=== PATIENT | female | born 1980 | race Caucasian/White ===

== ENCOUNTER 2017-03-11 10:09 | Emergency (ER) | payer OTHER ==
[2017-03-11] MEDS ORDERED: SODIUM CHLORIDE 0.9% 1,000 ML IV ONE (10:55)
[2017-03-11] MEDS ORDERED: MORPHINE SULFATE 10 MG/ML SYRINGE IVP STA (10:55)
[2017-03-11] MEDS ORDERED: ONDANSETRON 4 MG/2 ML VIAL IVP STA ×2 (10:55→11:48)
[2017-03-11 10:56] LABS: Basophils % (A) 0 %; CH 32.8; CHCM 34.6; Eosinophils # (A) 0.3 k/uL (0-0.7); Eosinophils % (A) 4 %; HCT 42.8 % (34.0-46.0); HDW 2.58; HGB 14.7 gm/dL (11.4-16.0); Luc # (Auto) 0.12; Luc % (Auto) 2; Lymphocytes # (A) 1.4 k/uL (1.0-4.8); Lymphocytes % (A) 18 %; MCH 32.7 pg (25.0-35.0); MCHC 34.3 g/dL (31.0-37.0); MCV 95.5 fL (80.0-100.0); Mean Platelet Volume 7.6; Monocytes # (A) 0.4 k/uL (0-1.0); Monocytes % (A) 5 %; Neutrophils # (A) 5.6 k/uL (1.3-7.7); Neutrophils % (A) 72 %; RBC 4.48 m/uL (3.80-5.40); WBC 7.7 k/uL (3.8-10.6); WBC (Perox) 8.01
[2017-03-11 11:04] LABS: Appearance,Urine Cloudy (Clear); Bacteria,Urine Rare /hpf; Bilirubin,Urine Negative (Negative); Glucose,Urine (UA) Negative (Negative); Ketones,Urine Negative (Negative); Leukocyte Esterase,Urine Trace (Negative); Mucus,Urine Occasional /hpf; Nitrite,Urine Negative (Negative); PH, Urine 5.5 (5.0-8.0); Particle Count 13658; Protein,Urine 1+ (Negative); RBC,Urine 48 /hpf (0-5); Specific Gravity,Urine 1.018 (1.001-1.035); Squamous Epithelial Cell,Urine 7 /hpf (0-4); UA Billing (MACRO vs. MICRO) MICRO; Urobilinogen,Urine <2.0 mg/dL (<2.0); WBC,Urine 3 /hpf (0-5)
--- NOTE | 2017-03-11 11:05 | ED ---
Abdominal Pain HPI - General Chief Complaint: Abdominal Pain Stated Complaint: abdominal pain Time Seen by Provider: 03/11/17 10:33 Source: patient, RN notes reviewed Mode of arrival: ambulatory Limitations: no limitations - History of Present Illness Initial Comments: Patient is a 36-year-old female presents to the emergency room for evaluation of abdominal pain. Patient states she ate 2 baked potatoes last night and vomited about 5-10 minutes afterwards. Patient states she vomited so hard she began having lower abdominal pain and headache. Patient states headache has subsided but she's been having increasing abdominal pain. Patient states she is currently having 8 out of 10 pain in her left lower quadrant and left upper quadrant. Patient states she has a history of cholecystectomy. Patient states she's been nauseous today but denies any vomiting since last night. Patient denies fevers or chills. Patient denies chest pain or shortness of breath. Patient denies headache or dizziness. Patient denies taking anything for pain. Patient denies blood in stools. Patient denies dark tarry stools. - Related Data Home Medications Medication Instructions Recorded Confirmed Acyclovir [Zovirax] 800 mg PO HS 09/02/14 03/11/17 Ranitidine HCl [Zantac] 300 mg PO BID 09/02/14 03/11/17 lamoTRIgine [LaMICtal] 150 mg PO HS 09/02/14 03/11/17 Citalopram Hydrobromide [CeleXA] 20 mg PO HS 12/07/14 03/11/17 HYDROcodone/APAP 7.5-325MG [[place] 1 tab PO BID PRN 12/07/14 03/11/17 7.5-325] Ibuprofen [Motrin] 800 mg PO TID PRN 12/07/14 03/11/17 QUEtiapine [SEROquel] 200 mg PO HS 12/07/14 03/11/17 Metoprolol Tartrate [Lopressor] 25 mg PO HS 02/26/16 03/11/17 Verapamil HCl [Verapamil ER] 180 mg PO HS 02/26/16 03/11/17 Mirtazapine [Remeron] 45 mg PO HS 03/11/17 03/11/17 Pregabalin [Lyrica] 200 mg PO BID 03/11/17 03/11/17 Previous Rx's Medication Instructions Recorded Ondansetron Odt [Zofran Odt] 4 mg PO Q8HR PRN #12 tab 03/11/17 Allergies Allergy/AdvReac Type Severity Reaction Status Date / Time azithromycin Allergy Unknown Rash/Hives Verified 03/11/17 10:17 [From Zithromax Z-Jeremie] acetaminophen AdvReac TREMORS Verified 03/11/17 10:17 [From Tylenol-Codeine #3] codeine phosphate AdvReac TREMORS Verified 03/11/17 10:17 [From Tylenol-Codeine #3] prednisone AdvReac Swelling Verified 03/11/17 10:17 Review of Systems ROS Statement: Those systems with pertinent positive or pertinent negative responses have been documented in the HPI. ROS Other: All systems not noted in ROS Statement are negative. Past Medical History Past Medical History: Asthma, GERD/Reflux, Myocardial Infarction ([place]), Renal Disease Additional Past Medical History / Comment(s): kidney stones, DJD- back pain., sciatic nerve pain, depression, migraines, asthma and chronic bronchitis Last Myocardial Infarction Date:: 10/2013 History of Any Multi-Drug Resistant Organisms: None Reported Past Surgical History: Cholecystectomy, Tubal Ligation, Uterine Ablation Additional Past Surgical History / Comment(s): d & c nova sure, colposcopy Past Anesthesia/Blood Transfusion Reactions: No Reported Reaction Additional Past Anesthesia/Blood Transfusion Reaction / Comment(s): never recieved blood. Past Psychological History: ADD/ADHD, Anxiety, Bipolar, Depression Additional Psychological History / Comment(s): BORDERLINE PERSONALITY DISORDER, MAJOR DEPRESSION DISORDER. PT IS UNEMPLOYED. 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 Smoking Status: Current every day smoker Past Alcohol Use History: Rare Past Drug Use History: None Reported Additional Drug Use History / Comment(s): PT SMOKES MARIJUANA ONCE OR TWICE A MONTH. - Past Family History Father Family Medical History: Myocardial Infarction ([place]) Additional Family Medical History / Comment(s): FATHER HAD [place] AT AGE 42 YRS. FATHER OF PANCREATIC CANCER. HE WAS AN ALCOHOLIC Mother Family Medical History: Coronary Artery Disease (CAD), Diabetes Mellitus General Exam - General Exam Comments Initial Comments: Sitting in exam room, no acute distress. Limitations: no limitations General appearance: alert, in no apparent distress Head exam: Present: atraumatic, normocephalic, normal inspection Eye exam: Present: normal appearance ENT exam: Present: normal exam Neck exam: Present: normal inspection Respiratory exam: Present: normal lung sounds bilaterally. Absent: respiratory distress Cardiovascular Exam: Present: regular rate, normal rhythm, normal heart sounds GI/Abdominal exam: Present: soft, tenderness (Left lower quadrant), normal bowel sounds. Absent: distended, guarding, rebound, rigid Extremities exam: Present: normal inspection Back exam: Present: normal inspection Neurological exam: Present: alert, oriented X3, CN II-XII intact, normal gait Psychiatric exam: Present: normal affect, normal mood Skin exam: Present: warm, dry, intact, normal color. Absent: rash Course Vital Signs 03/11/17 03/11/17 03/11/17 10:15 12:18 13:56 Temperature 99.9 F H 97.9 F 98.3 F Pulse Rate 90 89 79 Respiratory 20 16 18 Rate Blood Pressure 145/79 125/60 144/73 O2 Sat by Pulse 98 97 95 Oximetry Medical Decision Making - Medical Decision Making Patient is a 36-year-old female presents emergency room for evaluation of abdominal pain. Labs showed no significant findings. Urinalysis significant for hematuria. Patient states that is chronic for her. Patient states she has a chronic right kidney stone. CT ordered to rule out appendicitis. CT showed no acute findings. Right proximal ureteral stone noted, which patient knows about. Patient's abdominal pain most likely related to muscle strain from vomiting. Advised patient to take ibuprofen as needed for pain and follow up with primary care provider if symptoms are not improving. Patient states she understands everything that was discussed with her. Return parameters discussed. Case discussed Dr. Malik. - Lab Data Result diagrams: 03/11/17 10:45 03/11/17 10:45 Lab Results 03/11/17 03/11/17 03/11/17 Range/Units 10:45 10:45 10:45 WBC 7.7 (3.8-10.6) k/uL RBC 4.48 (3.80-5.40) m/uL Hgb 14.7 (11.4-16.0) gm/dL Hct 42.8 (34.0-46.0) % MCV 95.5 (80.0-100.0) fL MCH 32.7 (25.0-35.0) pg MCHC 34.3 (31.0-37.0) g/dL RDW 14.0 (11.5-15.5) % Plt Count 194 (150-450) k/uL Neutrophils % 72 % Lymphocytes % 18 % Monocytes % 5 % Eosinophils % 4 % Basophils % 0 % Neutrophils # 5.6 (1.3-7.7) k/uL Lymphocytes # 1.4 (1.0-4.8) k/uL Monocytes # 0.4 (0-1.0) k/uL Eosinophils # 0.3 (0-0.7) k/uL Basophils # 0.0 (0-0.2) k/uL Sodium 141 (137-145) mmol/L Potassium 3.9 (3.5-5.1) mmol/L Chloride 107 (98-107) mmol/L Carbon Dioxide 25 (22-30) mmol/L Anion Gap 9 mmol/L BUN 10 (7-17) mg/dL Creatinine 0.77 (0.52-1.04) mg/dL Est GFR (MDRD) Af Amer >60 (>60 ml/min/1.73 sqM) Est GFR (MDRD) Non-Af >60 (>60 ml/min/1.73 sqM) Glucose 112 H (74-99) mg/dL Calcium 9.2 (8.4-10.2) mg/dL Total Bilirubin 0.5 (0.2-1.3) mg/dL AST 27 (14-36) U/L ALT 37 (9-52) U/L Alkaline Phosphatase 73 (38-126) U/L Total Protein 6.9 (6.3-8.2) g/dL Albumin 4.0 (3.5-5.0) g/dL Urine Color Urine Appearance (Clear) Urine pH (5.0-8.0) Ur Specific [place] (1.001-1.035) Urine Protein (Negative) Urine Glucose (UA) (Negative) Urine Ketones (Negative) Urine Blood (Negative) Urine Nitrite (Negative) Urine Bilirubin (Negative) Urine Urobilinogen (<2.0) mg/dL Ur Leukocyte Esterase (Negative) Urine RBC (0-5) /hpf Urine WBC (0-5) /hpf Ur Squamous Epith Cells (0-4) /hpf Urine Bacteria (None) /hpf Urine Mucus (None) /hpf Urine HCG, Qual Not Detected (Not Detectd) 03/11/17 Range/Units 10:45 WBC (3.8-10.6) k/uL RBC (3.80-5.40) m/uL Hgb (11.4-16.0) gm/dL Hct (34.0-46.0) % MCV (80.0-100.0) fL MCH (25.0-35.0) pg MCHC (31.0-37.0) g/dL RDW (11.5-15.5) % Plt Count (150-450) k/uL Neutrophils % % Lymphocytes % % Monocytes % % Eosinophils % % Basophils % % Neutrophils # (1.3-7.7) k/uL Lymphocytes # (1.0-4.8) k/uL Monocytes # (0-1.0) k/uL Eosinophils # (0-0.7) k/uL Basophils # (0-0.2) k/uL Sodium (137-145) mmol/L Potassium (3.5-5.1) mmol/L Chloride (98-107) mmol/L Carbon Dioxide (22-30) mmol/L Anion Gap mmol/L BUN (7-17) mg/dL Creatinine (0.52-1.04) mg/dL Est GFR (MDRD) Af Amer (>60 ml/min/1.73 sqM) Est GFR (MDRD) Non-Af (>60 ml/min/1.73 sqM) Glucose (74-99) mg/dL Calcium (8.4-10.2) mg/dL Total Bilirubin (0.2-1.3) mg/dL AST (14-36) U/L ALT (9-52) U/L Alkaline Phosphatase (38-126) U/L Total Protein (6.3-8.2) g/dL Albumin (3.5-5.0) g/dL Urine Color Yellow Urine Appearance Cloudy H (Clear) Urine pH 5.5 (5.0-8.0) Ur Specific [place] 1.018 (1.001-1.035) Urine Protein 1+ H (Negative) Urine Glucose (UA) Negative (Negative) Urine Ketones Negative (Negative) Urine Blood Large H (Negative) Urine Nitrite Negative (Negative) Urine Bilirubin Negative (Negative) Urine Urobilinogen <2.0 (<2.0) mg/dL Ur Leukocyte Esterase Trace H (Negative) Urine RBC 48 H (0-5) /hpf Urine WBC 3 (0-5) /hpf Ur Squamous Epith Cells 7 H (0-4) /hpf Urine Bacteria Rare H (None) /hpf Urine Mucus Occasional H (None) /hpf Urine HCG, Qual (Not Detectd) - Radiology Data Radiology results: report reviewed, image reviewed Disposition Clinical Impression: Ureteral stone, Abdominal pain Disposition: HOME SELF-CARE Condition: Good Instructions: Abdominal Pain (ED) Additional Instructions: Continue with at home pain medications as needed. Please follow up with primary care provider in 1-2 days. If any new symptom arises or symptoms worsen, return to ER as soon as possible. Prescriptions: Ondansetron Odt [Zofran Odt] 4 mg PO Q8HR PRN #12 tab PRN Reason: Nausea Referrals: Solange Cowan MD [Primary Care Provider] - 1-2 days Time of Disposition: 13:43
[2017-03-11 11:06] LABS: ALT 37 U/L (9-52); AST 27 U/L (14-36); Alkaline Phosphatase 73 U/L (38-126); Anion Gap 9 mmol/L; Blood Urea Nitrogen 10 mg/dL (7-17); Calcium 9.2 mg/dL (8.4-10.2); Carbon Dioxide 25 mmol/L (22-30); Chloride 107 mmol/L (98-107); Glucose 112 mg/dL (74-99); Non-African American GFR(MDRD) >60 (>60 ml/min/1.73 sqM); Potassium 3.9 mmol/L (3.5-5.1); Sodium 141 mmol/L (137-145); Total Bilirubin 0.5 mg/dL (0.2-1.3); Total Protein 6.9 g/dL (6.3-8.2)
--- NOTE | 2017-03-11 11:28 | XR ---
EXAMINATION TYPE: XR KUB DATE OF EXAM: 03/11/2017 11:23 AM COMPARISON: NONE HISTORY: 02/18/2016 TECHNIQUE: One view abdominal series FINDINGS: The osseous structures are intact. The bowel gas pattern is nonspecific. Lung bases are clear. Surg ical clips right upper quadrant. Postsurgical change in the pelvis. IMPRESSION: 1. Nonspecific abdomen.
[2017-03-11] MEDS ORDERED: HYDROmorphone 1 MG/ML 1 ML SYRINGE IVP STA (11:48)
[2017-03-11] MEDS ORDERED: RX INFO: IV CONTRAST WAS GIVEN 1 EACH MISC MISCELLANE PRN (11:48)
--- NOTE | 2017-03-11 13:25 | CT ---
EXAMINATION TYPE: CT abdomen pelvis w con DATE OF EXAM: 03/11/2017 1:07 PM REFERENCE: Previous study dated 02/26/2016 HISTORY: Pain HISTORY: Patient complains of nausea, vomiting, and LUQ pain. REFERENCE: NONE CT DLP: 3648.1 mGy Automated exposure control for dose reduction was used. TECHNIQUE: Helical acquisition through the abdomen and pelvis was obtained following the oral ingesti on of without Oral Contrast and following intravenous administration of 100 mL of Omnipaque 300. The data was reformatted in axial, coronal and sagittal projections. FINDINGS: Visualized portions of the lungs are clear. There is no pleural or pericardial fluid. The heart is not enlarged. Within the abdomen, the gallbladder is been removed. There is a prominent Job's lobe of the liver. The spleen is unremarkable. Both adrenal glands are normal. There is a 7 mm calculus in the proximal right ureter. There is no appreciable hydronephrosis. The le ft kidney is normal. The pancreas is unremarkable. There is no significant retroperitoneal, iliac or inguinal adenopathy. Uterus is unremarkable. There has been a previous tubal ligation. Both clips are seen on the left. Th ere is minimal follicular change in both ovaries. The bladder is unremarkable. There is no significant diverticular change and there is no radiographic evidence of diverticulitis. The appendix is not visualized. Small bowel loops are normal. There is no free fluid and no free air identified. There is disc space loss at L4-5. No bony destructive lesion is seen. IMPRESSION: 1. NONOBSTRUCTING, 7 MM CALCULUS IN THE PROXIMAL RIGHT URETER. 2. DEGENERATIVE CHANGE WITHIN THE SPINE.
[2017-03-11 13:57] VITALS: BP 144/73; PULSE 79; RESP 18; TEMP 98.3
== END 2017-03-11 13:57 | disposition home or self-care (01) ==
LOC: EC 10:09
DX: N20.2 Calculus of kidney with calculus of ureter (principal); R11.10 Vomiting, unspecified; K21.9 Gastro-esophageal reflux disease without esophagitis; I25.2 Old myocardial infarction; F31.9 Bipolar disorder, unspecified; F41.9 Anxiety disorder, unspecified; F17.200 Nicotine dependence, unspecified, uncomplicated; Z79.899 Other long term (current) drug therapy; Z88.1 Allergy status to other antibiotic agents; Z88.6 Allergy status to analgesic agent; Z88.8 Allergy status to other drugs, medicaments and biological substances; Z86.69 Personal history of other diseases of the nervous system and sense organs
CPT/HCPCS: 36415; 80053; 85025; 81001; 81025; 74000; 74177; 99284; 96374; 96375 ×2; 96376; 96361; J2270; J2405; J1170; Q9967

== ENCOUNTER 2017-03-25 10:29 | Observation (INO) | payer OTHER ==
[2017-03-25] MEDS ORDERED: ACETAMINOPHEN TAB 500 MG TAB PO STA (10:48)
[2017-03-25] MEDS ORDERED: ASPIRIN 81 MG CHEW PO STA (10:48)
[2017-03-25] MEDS ORDERED: SODIUM CHLORIDE 0.9% 1,000 ML IV STA (10:48)
[2017-03-25] MEDS ORDERED: NITROGLYCERIN SL TABS 0.4 MG TAB SUBLINGUAL STA ×3 (10:48)
--- NOTE | 2017-03-25 10:51 | ED ---
General Adult HPI - General Chief complaint: Chest Pain Stated complaint: Chest Pain Time Seen by Provider: 03/25/17 10:36 Source: patient, EMS, RN notes reviewed Mode of arrival: EMS Limitations: no limitations - Related Data Home Medications Medication Instructions Recorded Confirmed Acyclovir [Zovirax] 800 mg PO HS 09/02/14 03/11/17 Ranitidine HCl [Zantac] 300 mg PO BID 09/02/14 03/11/17 lamoTRIgine [LaMICtal] 150 mg PO HS 09/02/14 03/11/17 Citalopram Hydrobromide [CeleXA] 20 mg PO HS 12/07/14 03/11/17 HYDROcodone/APAP 7.5-325MG [[place] 1 tab PO BID PRN 12/07/14 03/11/17 7.5-325] Ibuprofen [Motrin] 800 mg PO TID PRN 12/07/14 03/11/17 QUEtiapine [SEROquel] 200 mg PO HS 12/07/14 03/11/17 Metoprolol Tartrate [Lopressor] 25 mg PO HS 02/26/16 03/11/17 Verapamil HCl [Verapamil ER] 180 mg PO HS 02/26/16 03/11/17 Mirtazapine [Remeron] 45 mg PO HS 03/11/17 03/11/17 Pregabalin [Lyrica] 200 mg PO BID 03/11/17 03/11/17 Previous Rx's Medication Instructions Recorded Ondansetron Odt [Zofran Odt] 4 mg PO Q8HR PRN #12 tab 03/11/17 Allergies Allergy/AdvReac Type Severity Reaction Status Date / Time azithromycin Allergy Unknown Rash/Hives Verified 03/11/17 10:17 [From Zithromax Z-Jeremie] acetaminophen AdvReac TREMORS Verified 03/11/17 10:17 [From Tylenol-Codeine #3] codeine phosphate AdvReac TREMORS Verified 03/11/17 10:17 [From Tylenol-Codeine #3] prednisone AdvReac Swelling Verified 03/11/17 10:17 Review of Systems ROS Statement: Those systems with pertinent positive or pertinent negative responses have been documented in the HPI. ROS Other: All systems not noted in ROS Statement are negative. Past Medical History Past Medical History: Asthma, GERD/Reflux, Myocardial Infarction ([place]), Renal Disease Additional Past Medical History / Comment(s): kidney stones, DJD- back pain., sciatic nerve pain, depression, migraines, asthma and chronic bronchitis Last Myocardial Infarction Date:: 10/2013 History of Any Multi-Drug Resistant Organisms: None Reported Past Surgical History: Cholecystectomy, Tubal Ligation, Uterine Ablation Additional Past Surgical History / Comment(s): d & c nova sure, colposcopy Past Anesthesia/Blood Transfusion Reactions: No Reported Reaction Additional Past Anesthesia/Blood Transfusion Reaction / Comment(s): never recieved blood. Past Psychological History: ADD/ADHD, Anxiety, Bipolar, Depression Additional Psychological History / Comment(s): BORDERLINE PERSONALITY DISORDER, MAJOR DEPRESSION DISORDER. PT IS UNEMPLOYED. 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 Smoking Status: Current every day smoker Past Alcohol Use History: Rare Past Drug Use History: None Reported Additional Drug Use History / Comment(s): PT SMOKES MARIJUANA ONCE OR TWICE A MONTH. - Past Family History Father Family Medical History: Myocardial Infarction ([place]) Additional Family Medical History / Comment(s): FATHER HAD [place] AT AGE 42 YRS. FATHER OF PANCREATIC CANCER. HE WAS AN ALCOHOLIC Mother Family Medical History: Coronary Artery Disease (CAD), Diabetes Mellitus General Exam Limitations: no limitations Course Vital Signs 03/25/17 03/25/17 10:30 10:42 Temperature 98.3 F Pulse Rate 77 Respiratory 22 20 Rate Blood Pressure 127/61 O2 Sat by Pulse 96 Oximetry Disposition Referrals: Solange Cowan MD [Primary Care Provider] - 1-2 days
[2017-03-25 10:56] VITALS: RESP 18
[2017-03-25 10:56] LABS: Basophils % (A) 1 %; CH 32.4; CHCM 34.5; Eosinophils # (A) 0.2 k/uL (0-0.7); Eosinophils % (A) 4 %; HCT 41.4 % (34.0-46.0); HDW 2.57; HGB 14.3 gm/dL (11.4-16.0); Luc % (Auto) 2; Lymphocytes # (A) 1.5 k/uL (1.0-4.8); Lymphocytes % (A) 27 %; MCH 32.5 pg (25.0-35.0); MCHC 34.5 g/dL (31.0-37.0); MCV 94.1 fL (80.0-100.0); Mean Platelet Volume 7.7; Monocytes # (A) 0.4 k/uL (0-1.0); Monocytes % (A) 6 %; Neutrophils # (A) 3.4 k/uL (1.3-7.7); Neutrophils % (A) 61 %; RDW 13.5 % (11.5-15.5); WBC 5.6 k/uL (3.8-10.6); WBC (Perox) 6.21
--- NOTE | 2017-03-25 10:58 | ED ---
General Adult HPI - General Chief complaint: Chest Pain Stated complaint: Chest Pain Time Seen by Provider: 03/25/17 10:36 Source: patient, EMS, RN notes reviewed Mode of arrival: EMS Limitations: no limitations - History of Present Illness Initial comments: Patient is a pleasant 36-year-old female presenting to the emergency department complaining of chest discomfort. Onset was around 30 or 40 minutes ago when he awoke her from sleep. Discomfort is sharp and radiates to the left arm. Symptoms are similar to previous angina. Patient may have some mild nausea and mild shortness of breath. No diaphoresis. Discomfort is currently rated as 8/ 10. - Related Data Home Medications Medication Instructions Recorded Confirmed Acyclovir [Zovirax] 800 mg PO HS 09/02/14 03/25/17 lamoTRIgine [LaMICtal] 150 mg PO HS 09/02/14 03/25/17 Citalopram Hydrobromide [CeleXA] 20 mg PO HS 12/07/14 03/25/17 HYDROcodone/APAP 7.5-325MG [[place] 1 tab PO BID PRN 12/07/14 03/25/17 7.5-325] Ibuprofen [Motrin] 800 mg PO TID PRN 12/07/14 03/25/17 QUEtiapine [SEROquel] 200 mg PO HS 12/07/14 03/25/17 Metoprolol Tartrate [Lopressor] 25 mg PO HS 02/26/16 03/25/17 Verapamil HCl [Verapamil ER] 180 mg PO HS 02/26/16 03/25/17 Mirtazapine [Remeron] 45 mg PO HS 03/11/17 03/25/17 Pregabalin [Lyrica] 200 mg PO BID 03/11/17 03/25/17 Omeprazole [PriLOSEC] 20 mg PO HS 03/25/17 03/25/17 Previous Rx's Medication Instructions Recorded Ondansetron Odt [Zofran Odt] 4 mg PO Q8HR PRN #12 tab 03/11/17 Allergies Allergy/AdvReac Type Severity Reaction Status Date / Time azithromycin Allergy Unknown Rash/Hives Verified 03/25/17 11:21 [From Zithromax Z-Jeremie] acetaminophen AdvReac TREMORS Verified 03/25/17 11:21 [From Tylenol-Codeine #3] codeine phosphate AdvReac TREMORS Verified 03/25/17 11:21 [From Tylenol-Codeine #3] prednisone AdvReac Swelling Verified 03/25/17 11:21 Review of Systems ROS Statement: Those systems with pertinent positive or pertinent negative responses have been documented in the HPI. ROS Other: All systems not noted in ROS Statement are negative. Constitutional: Denies: fever Eyes: Denies: eye pain ENT: Denies: ear pain Respiratory: Denies: cough Cardiovascular: Reports: chest pain Endocrine: Denies: fatigue Gastrointestinal: Reports: nausea. Denies: abdominal pain Genitourinary: Denies: dysuria Musculoskeletal: Denies: back pain Skin: Denies: rash Neurological: Denies: weakness Past Medical History Past Medical History: Asthma, GERD/Reflux, Myocardial Infarction ([place]), Renal Disease Additional Past Medical History / Comment(s): kidney stones, DJD- back pain., sciatic nerve pain, depression, migraines, asthma and chronic bronchitis Last Myocardial Infarction Date:: 10/2013 History of Any Multi-Drug Resistant Organisms: None Reported Past Surgical History: Cholecystectomy, Tubal Ligation, Uterine Ablation Additional Past Surgical History / Comment(s): d & c nova sure, colposcopy Past Anesthesia/Blood Transfusion Reactions: No Reported Reaction Additional Past Anesthesia/Blood Transfusion Reaction / Comment(s): never recieved blood. Past Psychological History: ADD/ADHD, Anxiety, Bipolar, Depression Additional Psychological History / Comment(s): BORDERLINE PERSONALITY DISORDER, MAJOR DEPRESSION DISORDER. PT IS UNEMPLOYED. 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 Smoking Status: Current every day smoker Past Alcohol Use History: Rare Past Drug Use History: None Reported Additional Drug Use History / Comment(s): PT SMOKES MARIJUANA ONCE OR TWICE A MONTH. - Past Family History Father Family Medical History: Myocardial Infarction ([place]) Additional Family Medical History / Comment(s): FATHER HAD [place] AT AGE 42 YRS. FATHER OF PANCREATIC CANCER. HE WAS AN ALCOHOLIC Mother Family Medical History: Coronary Artery Disease (CAD), Diabetes Mellitus General Exam Limitations: no limitations General appearance: alert, in no apparent distress Head exam: Present: atraumatic Eye exam: Present: normal appearance, PERRL ENT exam: Present: normal oropharynx Neck exam: Present: normal inspection Respiratory exam: Present: normal lung sounds bilaterally. Absent: chest wall tenderness Cardiovascular Exam: Present: regular rate, normal rhythm Expanded Peripheral pulses: 2+: Radial (R), Radial (L), Posterior Tibialis (R), Posterior Tibialis (L) GI/Abdominal exam: Present: soft. Absent: tenderness Extremities exam: Present: normal inspection Neurological exam: Present: alert Psychiatric exam: Present: normal affect, normal mood Skin exam: Present: normal color Course Vital Signs 03/25/17 03/25/17 03/25/17 10:30 10:42 10:55 Temperature 98.3 F Pulse Rate 77 71 Respiratory 22 20 18 Rate Blood Pressure 127/61 114/58 O2 Sat by Pulse 96 96 Oximetry 03/25/17 03/25/17 11:01 11:54 Temperature Pulse Rate 79 73 Respiratory 18 18 Rate Blood Pressure 109/56 111/55 O2 Sat by Pulse 95 97 Oximetry EKG Findings - EKG Comments: EKG Findings:: Normal sinus rhythm 68. ME 160. QRS 84. QT 4:30. QTC 457. Normal axis. Normal QRS. Normal ST-T. Medical Decision Making - Medical Decision Making Patient reevaluated and resting comfortably in bed. Patient updated on results and plan. Case was discussed in detail with Dr. Hankins who will admit for Dr. Cho. Patient has some improvement of symptoms with nitroglycerin however still has moderate discomfort. Admission orders written. Cardiology consult placed. Patient will be started on IV heparin. - Lab Data Result diagrams: 03/25/17 10:41 03/25/17 10:41 Lab Results 03/25/17 03/25/17 03/25/17 Range/Units 10:41 10:41 10:41 WBC 5.6 (3.8-10.6) k/uL RBC 4.40 (3.80-5.40) m/uL Hgb 14.3 (11.4-16.0) gm/dL Hct 41.4 (34.0-46.0) % MCV 94.1 (80.0-100.0) fL MCH 32.5 (25.0-35.0) pg MCHC 34.5 (31.0-37.0) g/dL RDW 13.5 (11.5-15.5) % Plt Count 214 (150-450) k/uL Neutrophils % 61 % Lymphocytes % 27 % Monocytes % 6 % Eosinophils % 4 % Basophils % 1 % Neutrophils # 3.4 (1.3-7.7) k/uL Lymphocytes # 1.5 (1.0-4.8) k/uL Monocytes # 0.4 (0-1.0) k/uL Eosinophils # 0.2 (0-0.7) k/uL Basophils # 0.0 (0-0.2) k/uL PT (9.0-12.0) sec INR (<1.1) APTT (22.0-30.0) sec D-Dimer (<0.60) mg/L FEU Sodium 139 (137-145) mmol/L Potassium 3.8 (3.5-5.1) mmol/L Chloride 110 H (98-107) mmol/L Carbon Dioxide 23 (22-30) mmol/L Anion Gap 6 mmol/L BUN 18 H (7-17) mg/dL Creatinine 0.73 (0.52-1.04) mg/dL Est GFR (MDRD) Af Amer >60 (>60 ml/min/1.73 sqM) Est GFR (MDRD) Non-Af >60 (>60 ml/min/1.73 sqM) Glucose 111 H (74-99) mg/dL Calcium 9.4 (8.4-10.2) mg/dL Magnesium 1.9 (1.6-2.3) mg/dL Total Bilirubin 0.5 (0.2-1.3) mg/dL AST 18 (14-36) U/L ALT 28 (9-52) U/L Alkaline Phosphatase 74 (38-126) U/L Total Creatine Kinase 62 (30-135) U/L CK-MB (CK-2) 0.8 (0.0-2.4) ng/mL CK-MB (CK-2) Rel Index 1.3 Troponin I 0.021 (0.000-0.034) ng/mL Total Protein 6.6 (6.3-8.2) g/dL Albumin 3.9 (3.5-5.0) g/dL Amylase 48 (30-110) U/L Lipase 122 (23-300) U/L 05//17 Range/Units 10:41 WBC (3.8-10.6) k/uL RBC (3.80-5.40) m/uL Hgb (11.4-16.0) gm/dL Hct (34.0-46.0) % MCV (80.0-100.0) fL MCH (25.0-35.0) pg MCHC (31.0-37.0) g/dL RDW (11.5-15.5) % Plt Count (150-450) k/uL Neutrophils % % Lymphocytes % % Monocytes % % Eosinophils % % Basophils % % Neutrophils # (1.3-7.7) k/uL Lymphocytes # (1.0-4.8) k/uL Monocytes # (0-1.0) k/uL Eosinophils # (0-0.7) k/uL Basophils # (0-0.2) k/uL PT 9.7 (9.0-12.0) sec INR 0.9 (<1.1) APTT 21.5 L (22.0-30.0) sec D-Dimer 0.23 (<0.60) mg/L FEU Sodium (137-145) mmol/L Potassium (3.5-5.1) mmol/L Chloride (98-107) mmol/L Carbon Dioxide (22-30) mmol/L Anion Gap mmol/L BUN (7-17) mg/dL Creatinine (0.52-1.04) mg/dL Est GFR (MDRD) Af Amer (>60 ml/min/1.73 sqM) Est GFR (MDRD) Non-Af (>60 ml/min/1.73 sqM) Glucose (74-99) mg/dL Calcium (8.4-10.2) mg/dL Magnesium (1.6-2.3) mg/dL Total Bilirubin (0.2-1.3) mg/dL AST (14-36) U/L ALT (9-52) U/L Alkaline Phosphatase (38-126) U/L Total Creatine Kinase (30-135) U/L CK-MB (CK-2) (0.0-2.4) ng/mL CK-MB (CK-2) Rel Index Troponin I (0.000-0.034) ng/mL Total Protein (6.3-8.2) g/dL Albumin (3.5-5.0) g/dL Amylase (30-110) U/L Lipase (23-300) U/L - Radiology Data Radiology results: image reviewed (Chest x-ray reveals no acute process) Critical Care Time Critical Care Time: Yes Total Critical Care Time: 32 Disposition Clinical Impression: Unstable angina pectoris Disposition: ADMITTED IP TO THIS HOSP Referrals: Solange Coawn MD [Primary Care Provider] - 1-2 days Time of Disposition: 13:24
[2017-03-25 11:08] LABS: ALT 28 U/L (9-52); AST 18 U/L (14-36); Alkaline Phosphatase 74 U/L (38-126); Amylase 48 U/L (30-110); Anion Gap 6 mmol/L; Blood Urea Nitrogen 18 mg/dL (7-17); Calcium 9.4 mg/dL (8.4-10.2); Carbon Dioxide 23 mmol/L (22-30); Chloride 110 mmol/L (98-107); Glucose 111 mg/dL (74-99); Magnesium 1.9 mg/dL (1.6-2.3); Non-African American GFR(MDRD) >60 (>60 ml/min/1.73 sqM); Potassium 3.8 mmol/L (3.5-5.1); Sodium 139 mmol/L (137-145); Total Bilirubin 0.5 mg/dL (0.2-1.3); Total Protein 6.6 g/dL (6.3-8.2)
--- NOTE | 2017-03-25 11:15 | XR ---
EXAMINATION TYPE: XR chest 2V DATE OF EXAM: 03/25/2017 11:09 AM COMPARISON: 02/26/2016 HISTORY: 36-year-old female with chest pain TECHNIQUE: AP and lateral views FINDINGS: The cardiomediastinal silhouette, aorta, and pulmonary vasculature are within normal limits. Hazy den sities over the mid to lower lung suspected to relate to overlying soft tissue and AP portable techni que. No consolidation or pleural effusion is seen. IMPRESSION: Hazy densities caused by portable technique and large body habitus. No definite acute process.
[2017-03-25 11:37] LABS: INR 0.9 (<1.1); Partial Thromboplastin Time 21.5 sec (22.0-30.0); Prothrombin Time 9.7 sec (9.0-12.0)
[2017-03-25 11:54] LABS: Creatine Kinase MB 0.8 ng/mL (0.0-2.4); Troponin I 0.021 ng/mL (0.000-0.034)
[2017-03-25] MEDS ORDERED: MORPHINE SULFATE 4 MG/ML SYRINGE IV STA (13:22)
[2017-03-25] MEDS ORDERED: HEPARIN SODIUM,PORCINE 5,000 UNIT/ML 1 ML VIAL IV ONE (13:24)
[2017-03-25] MEDS ORDERED: NITROGLYCERIN SL TABS 0.4 MG TAB SUBLINGUAL PRN (13:24)
[2017-03-25] MEDS ORDERED: HEPARIN SODIUM,PORCINE 5,000 UNIT/ML 1 ML VIAL IV PRN (13:24)
[2017-03-25] MEDS ORDERED: HEPARIN SODIUM,PORCINE/D5W PMX 25,000 UNIT in DEXTROSE/WATER 1 500ML.BAG IV SCH (13:30)
[2017-03-25] MEDS ORDERED: NICOTINE 21MG/24HR PATCH TRANSDERM SCH (13:45)
[2017-03-25 14:27] VITALS: BP 129/63; PULSE 69; TEMP 97.9
[2017-03-25] MEDS ORDERED: ACETAMINOPHEN TAB 325 MG TAB PO PRN (16:31)
[2017-03-25 17:58] LABS: Creatine Kinase MB 0.8 ng/mL (0.0-2.4); Troponin I 0.02 ng/mL (0.000-0.034)
[2017-03-25] MEDS ORDERED: NITROGLYCERIN OINT 1 INCH/GM PACKET TOPICAL SCH (18:00)
--- NOTE | 2017-03-25 21:25 | HP ---
DATE OF ADMISSION: 03/25/2017 HISTORY AND PHYSICAL EXAMINATION/DISCHARGE SUMMARY: Patient is a 36-year-old came to the Emergency Room Department with chest pain in the epigastric area and woke up from sleep, sharp in nature, constant. Patient's chest pain is reproducible in nature, associated with mild nausea. There may be a component of gastritis as well. Patient takes ibuprofen. I requested her to take ( ) ibuprofen, continue Prilosec and patient denied any diaphoresis. Patient denied any shortness of breath associated with that. As per the ER physician, patient apparently had coronary artery disease in the past, although I reviewed her medical records, patient never had any cardiac catheterization or stenting. Patient had a stress test in the past. The stress test was negative. Patient denied any history of cardiac intervention although the patient's stress test was about 4 to 5 years ago. Her chest pain apparently when she came in was 8/10, now about 10 in severity. Will get another set of troponins and if that is negative, patient will be discharged today with an outpatient stress test on Tuesday. Patient denied lightheadedness, denied any cough, runny nose, Chest x-ray did not show any significant abnormality. Home medications include: 1. Acyclovir. 2. ( ). 3. Citalopram. 4. Hydrocodone. 5. Acetaminophen. 6. Ibuprofen. 7. Seroquel. 8. Metoprolol. 9. Verapamil. 10. Mirtazapine. 11. Pregabalin. 12. Prilosec. REVIEW OF SYSTEMS: CONSTITUTIONAL: No fever, no malaise, no fatigue. HEENT: No recent visual problems or hearing problems. Denied any sore throat. CARDIOVASCULAR: As described in history of present illness. PULMONARY: No shortness of breath, no cough, no hemoptysis. GASTROINTESTINAL: No diarrhea, no nausea, no vomiting, no abdominal pain. Normoactive bowel sounds. NEUROLOGICAL: No headaches, no weakness, no numbness. HEMATOLOGICAL: Denies any bleeding or petechiae. GENITOURINARY: Denies any burning micturition, frequency, or urgency. MUSCULOSKELETAL/RHEUMATOLOGICAL: Denies any joint pain, swelling, or any muscle pain. ENDOCRINE: Denies any polyuria or polydipsia. The rest of the 14 point review of systems is negative. PAST MEDICAL HISTORY: Significant for asthma, gastroesophageal reflux disease, degenerative joint disease, hypertension, cholecystectomy, tubal ligation surgery, ( ) surgery, ADD , anxiety, bipolar depression. Patient continues to smoke. Extensive counseling regarding the counselling was provided. The patient smokes marijuana occasionally as well. Denied any alcohol abuse history. FAMILY HISTORY: Father had myocardial infarction. Father of pancreatic cancer. Patient says, the patient has significant family history of premature coronary artery disease with myocardial infarction in father at age 42. Mother and aunt had myocardial infarction at age 48 as per the patient, mother had coronary artery disease as well as diabetes mellitus. VITAL SIGNS: Temperature 97.9, pulse 73, respiratory rate 18, blood pressure 111/55, saturating at 97% on room air. GENERAL: The patient is alert and oriented x3, not in any acute distress. Well developed, well nourished. HEENT: Pupils are round and equally reacting to light. EOMI. No scleral icterus. No conjunctival pallor. Normocephalic, atraumatic. No pharyngeal erythema. No thyromegaly. CARDIOVASCULAR: S1 and S2 present. No murmurs, rubs, or gallops. PULMONARY: Patient does have some chest wall tenderness. ABDOMEN: Soft, nontender, nondistended, normoactive bowel sounds. No palpable organomegaly. MUSCULOSKELETAL: No joint swelling or deformity. EXTREMITIES: No cyanosis, clubbing, or pedal edema. NEUROLOGICAL: Gross neurological examination did not reveal any focal deficits. SKIN: No rashes. LABORATORY DATA: CBC, CMP, essentially within normal limits. One set of Troponins negative. Chest x-ray showed some haziness secondary to body habitus. Patient d-dimer is negative. Chest x-ray is not consistent with congestive heart failure. ASSESSMENT AND PLAN: 1. Chest pain, appears to be musculoskeletal or related to gastritis. Patient ibuprofen will be discontinued and patient after the second set of troponins, patient will be discharged home to follow with primary care physician and Lexiscan stress test on Tuesday. 2. Obesity. Counseling was provided. 3. Hypertension. Patient does have risk factors including premature coronary artery disease in the family and hypertension. 4. Hypertension. 5. Depression. 6. Nicotine abuse. Counseling was provided. For above-mentioned chronic medical problems, patient will continue her home medications. Patient will be discharged to follow with primary care physician in 3 to 7 days. Outpatient stress test. Cardiac diet. Dietary counseling was provided. This dictation is both H&P and discharge summary.
[2017-03-26] MEDS ORDERED: ASPIRIN 325 MG TAB PO SCH (09:00)
== END 2017-03-25 19:00 | disposition home or self-care (01) ==
LOC: EC 10:29 → 3OBS 13:24
PROVIDERS: ADMIT Internal Medicine; ATTEND Internal Medicine
DX: R07.89 Other chest pain (principal); E66.9 Obesity, unspecified; I10 Essential (primary) hypertension; K21.9 Gastro-esophageal reflux disease without esophagitis; J45.909 Unspecified asthma, uncomplicated; I25.2 Old myocardial infarction; F31.9 Bipolar disorder, unspecified; G43.909 Migraine, unspecified, not intractable, without status migrainosus; F41.9 Anxiety disorder, unspecified; F90.9 Attention-deficit hyperactivity disorder, unspecified type; F17.200 Nicotine dependence, unspecified, uncomplicated; R11.0 Nausea; Z79.899 Other long term (current) drug therapy; Z82.49 Family history of ischemic heart disease and other diseases of the circulatory system; Z68.42 Body mass index [BMI] 45.0-49.9, adult; Z87.442 Personal history of urinary calculi; Z88.6 Allergy status to analgesic agent; Z88.1 Allergy status to other antibiotic agents; Z88.5 Allergy status to narcotic agent; Z88.8 Allergy status to other drugs, medicaments and biological substances
CPT/HCPCS: 96374; 96375; 99291; 99292; 36415; 93005; 85379; 80053; 82150; 82550; 82553; 83690; 83735; 84484; 85025; 85610; 85730; 71020; G0378; S4990; J2270; J1644 ×2

== ENCOUNTER → 2017-04-13 | Outpatient (CLI) | payer OTHER ==
[~2017-04-13] MED LIST: REGADENOSON 0.4 MG/5 ML SYRINGE IV ONE
--- NOTE | 2017-04-13 12:56 | EST ---
DATE OF SERVICE: 04/13/2017 AGE: 36Y SEX: F HT: 70" WT: 319 lbs. Lexiscan Cardiolite Stress Test *Heart Rate Blood Pressure *Rest: 62 Rest: 144/68 * *Max. Achieved: 95 Maximum BP: 174/78 85% PMHR: 155 100% PMHR: 182 *METS: - INDICATIONS: Chest pain. MEDICATIONS: Metoprolol. Patient was given Lexiscan injection over a period of 15 seconds. Peak heart rate of 95 was achieved. Maximum blood pressure of 174/78 mmHg was noted. Resting EKG shows normal sinus rhythm with normal MA interval and QRS duration and normal ST-T waves. No ST segment depression suggestive of ischemia is noted. The results of nuclear study will follow.
--- NOTE | 2017-04-13 12:58 | NM ---
EXAMINATION TYPE: NM stress lexiscan cardiolite DATE OF EXAM: 04/13/2017 COMPARISON: NONE HISTORY: History of asthma and tobacco use as well as family history of coronary artery disease, hype rtension, history of prior myocardial infarction also resents with chest pain. TECHNIQUE: After the intravenous administration of 11 mCi Tc 99m Sestamibi - Cardiolite resting SPEC T images acquired 40 minutes post injection. The patient received 0.4mg Lexiscan, 27.3 mCi Tc 99m Sestamibi - Stress images obtained [address] injection FINDINGS: Review of stress and rest SPECT images demonstrates no distinct perfusion abnormality. Diminished up take anteroseptal wall at rest and stress SPECT images short axis and vertical long axis views mid se gment could reflect old infarct. Gated analysis shows normal wall motion with an estimated left ventr icular ejection fraction of 62 %. IMPRESSION: No scintigraphic evidence for reversible ischemia.
== END | disposition home or self-care (01) ==
LOC: RADNMMAIN 08:47
PROVIDERS: ATTEND Family Medicine
DX: R07.9 Chest pain, unspecified (principal); Z88.1 Allergy status to other antibiotic agents
CPT/HCPCS: 93017; 78452; A9500; J2785

== ENCOUNTER 2017-05-02 05:07 | Emergency (ER) | payer OTHER ==
[2017-05-02] MEDS ORDERED: ACETAMINOPHEN TAB 325 MG TAB PO STA (05:36)
[2017-05-02] MEDS ORDERED: IBUPROFEN 400 MG TAB PO STA (05:36)
[2017-05-02 06:34] VITALS: RESP 18
--- NOTE | 2017-05-02 06:38 | XR ---
EXAM: XR Chest, 2 Views CLINICAL HISTORY: Fever TECHNIQUE: Frontal and lateral views of the chest. COMPARISON: Chest x-ray dated 03/25/2017 FINDINGS: Lungs: Unremarkable. No consolidation. Pleural space: Unremarkable. No pneumothorax. Heart: Unremarkable. No cardiomegaly. Mediastinum: Unremarkable. Bones/joints: Unremarkable. IMPRESSION: Normal chest x-rays.
--- NOTE | 2017-05-02 06:58 | ED ---
Fever HPI - General Chief Complaint: Fever Stated Complaint: fever Time Seen by Provider: 05/02/17 05:08 Source: patient Mode of arrival: EMS Limitations: no limitations - History of Present Illness MD Complaint: fever - Related Data Home Medications Medication Instructions Recorded Confirmed Acyclovir [Zovirax] 800 mg PO HS 09/02/14 03/25/17 lamoTRIgine [LaMICtal] 150 mg PO HS 09/02/14 03/25/17 Citalopram Hydrobromide [CeleXA] 20 mg PO HS 12/07/14 03/25/17 QUEtiapine [SEROquel] 200 mg PO HS 12/07/14 03/25/17 Metoprolol Tartrate [Lopressor] 25 mg PO HS 02/26/16 03/25/17 Verapamil HCl [Verapamil ER] 180 mg PO HS 02/26/16 03/25/17 Mirtazapine [Remeron] 45 mg PO HS 03/11/17 03/25/17 Pregabalin [Lyrica] 200 mg PO BID 03/11/17 03/25/17 Omeprazole [PriLOSEC] 20 mg PO HS 03/25/17 03/25/17 Previous Rx's Medication Instructions Recorded Ondansetron Odt [Zofran Odt] 4 mg PO Q8HR PRN #12 tab 03/11/17 Benzonatate [Tessalon Perles] 100 mg PO TID #21 cap 05/02/17 Promethazine 6.25MG/5Ml [Phenergan 5 ml PO Q4HR PRN #120 ml 05/02/17 Syrup] Allergies Allergy/AdvReac Type Severity Reaction Status Date / Time azithromycin Allergy Unknown Rash/Hives Verified 05/02/17 05:25 [From Zithromax Z-Jeremie] acetaminophen AdvReac TREMORS Verified 05/02/17 05:25 [From Tylenol-Codeine #3] codeine phosphate AdvReac TREMORS Verified 05/02/17 05:25 [From Tylenol-Codeine #3] prednisone AdvReac Swelling Verified 05/02/17 05:25 Review of Systems ROS Statement: Those systems with pertinent positive or pertinent negative responses have been documented in the HPI. ROS Other: All systems not noted in ROS Statement are negative. Past Medical History Past Medical History: Asthma, GERD/Reflux, Myocardial Infarction ([place]), Renal Disease Additional Past Medical History / Comment(s): kidney stones, DJD- back pain., sciatic nerve pain, depression,ADHD, migraines, asthma and chronic bronchitis, DIVERTICULAR DISEASE, UTI, Last Myocardial Infarction Date:: 10/2013 History of Any Multi-Drug Resistant Organisms: None Reported Past Surgical History: Cholecystectomy, Tubal Ligation, Uterine Ablation Additional Past Surgical History / Comment(s): d & c nova sure, colposcopy Past Anesthesia/Blood Transfusion Reactions: No Reported Reaction Additional Past Anesthesia/Blood Transfusion Reaction / Comment(s): never recieved blood. CLAUSTERPHOBIA Past Psychological History: ADD/ADHD, Anxiety, Bipolar, Depression Smoking Status: Current every day smoker - Past Family History Father Family Medical History: Myocardial Infarction ([place]) Additional Family Medical History / Comment(s): FATHER HAD AK AT AGE 42 YRS. FATHER OF PANCREATIC CANCER. HE WAS AN ALCOHOLIC Mother Family Medical History: Coronary Artery Disease (CAD), Diabetes Mellitus, Myocardial Infarction ([place]) General Exam Limitations: no limitations Course Vital Signs 05/02/17 05/02/17 05:26 06:33 Temperature 101.6 F H 98.6 F Pulse Rate 88 78 Respiratory 16 18 Rate Blood Pressure 142/70 138/78 O2 Sat by Pulse 98 99 Oximetry Medical Decision Making - Lab Data Lab Results 05/02/17 Range/Units 05:43 Group A Strep Rapid Negative (Negative) Disposition Clinical Impression: Upper respiratory infection Disposition: HOME SELF-CARE Condition: Good Instructions: Upper Respiratory Infection (ED) Prescriptions: Benzonatate [Tessalon Perles] 100 mg PO TID #21 cap Promethazine 6.25MG/5Ml [Phenergan Syrup] 5 ml PO Q4HR PRN #120 ml PRN Reason: Cough Referrals: Solange Cowan MD [Primary Care Provider] - 1-2 days
[2017-05-02 08:01] VITALS: BP 122/60; PULSE 96; TEMP 99.4
== END 2017-05-02 08:01 | disposition home or self-care (01) ==
LOC: EC 05:07
DX: J06.9 Acute upper respiratory infection, unspecified (principal); K21.9 Gastro-esophageal reflux disease without esophagitis; I25.2 Old myocardial infarction; F31.9 Bipolar disorder, unspecified; F41.9 Anxiety disorder, unspecified; F17.200 Nicotine dependence, unspecified, uncomplicated; Z88.1 Allergy status to other antibiotic agents; Z88.5 Allergy status to narcotic agent; Z88.8 Allergy status to other drugs, medicaments and biological substances; Z79.899 Other long term (current) drug therapy
CPT/HCPCS: 71020; 87081; 87430; 99284

== ENCOUNTER 2017-05-05 10:49 | Inpatient (IN) | payer OTHER ==
[2017-05-05] MEDS ORDERED: SODIUM CHLORIDE 0.9% 1,000 ML IV STA (11:25)
[2017-05-05] MEDS ORDERED: LEVOFLOXACIN 750MG-D5W PMX 750 MG in DEXTROSE/WATER 1 150ML.BAG IVPB STA (11:25)
[2017-05-05] MEDS ORDERED: IPRATROPIUM-ALBUTEROL 3 ML NEB INHALATION STA ×2 (11:25→13:51)
[2017-05-05] MEDS ORDERED: SODIUM CHLORIDE 0.9% 500 ML IV STA (11:25)
[2017-05-05] MEDS ORDERED: KETOROLAC 30 MG/ML 1 ML VIAL IVP STA (11:27)
[2017-05-05] MEDS ORDERED: methylPREDNISolone SOD SUCCI 125 MG/2 ML VIAL IV STA (11:29)
[2017-05-05 13:15] LABS: INR 1.1 (<1.1); Partial Thromboplastin Time 22.7 sec (22.0-30.0); Prothrombin Time 10.7 sec (9.0-12.0)
[2017-05-05 13:21] LABS: Basophils % (A) 0 %; CH 32.5; CHCM 35.9; Eosinophils % (A) 1 %; HCT 36.5 % (34.0-46.0); HDW 2.92; HGB 13.2 gm/dL (11.4-16.0); Luc # (Auto) 0.07; Luc % (Auto) 3; Lymphocytes # (A) 0.5 k/uL (1.0-4.8); Lymphocytes % (A) 16 %; MCHC 36.3 g/dL (31.0-37.0); Mean Platelet Volume 8.7; Monocytes # (A) 0.1 k/uL (0-1.0); Monocytes % (A) 5 %; Neutrophils # (A) 2.2 k/uL (1.3-7.7); Neutrophils % (A) 76 %; RBC 4.01 m/uL (3.80-5.40); WBC 2.9 k/uL (3.8-10.6); WBC (Perox) 3.04
[2017-05-05 13:22] LABS: ALT 95 U/L (9-52); AST 122 U/L (14-36); Alkaline Phosphatase 73 U/L (38-126); Anion Gap 8 mmol/L; Blood Urea Nitrogen 9 mg/dL (7-17); Calcium 8.3 mg/dL (8.4-10.2); Carbon Dioxide 24 mmol/L (22-30); Chloride 106 mmol/L (98-107); Glucose 104 mg/dL (74-99); Non-African American GFR(MDRD) >60 (>60 ml/min/1.73 sqM); Potassium 3.4 mmol/L (3.5-5.1); Sodium 138 mmol/L (137-145); Total Bilirubin 0.3 mg/dL (0.2-1.3)
--- NOTE | 2017-05-05 14:37 | ED ---
SOB HPI - General Chief Complaint: Shortness of Breath Stated Complaint: Fever Time Seen by Provider: 05/05/17 11:03 Source: patient, EMS Mode of arrival: EMS - History of Present Illness Initial Comments: This 36-year-old white female presents with a complaint of shortness of breath. This is been present for over 4 days. She has had a cough which has been nonproductive. She states that she has been running a fever as well. She has an occasional headache when she coughs. She denies any actual chest pain. She states that she was seen in the emergency department approximately 3 days ago. She had a negative x-ray at that time and was prescribed some cough medications. She denies any significant relief. She does have a history of asthma and his wheezing. She denies any other complaints or modifying factors. She states that prednisone will cause her to have some nausea and vomiting but she is able to take IV steroids without any problems. - Related Data Home Medications Medication Instructions Recorded Confirmed Acyclovir [Zovirax] 800 mg PO HS 09/02/14 05/05/17 lamoTRIgine [LaMICtal] 300 mg PO HS 09/02/14 05/05/17 Metoprolol Tartrate [Lopressor] 25 mg PO HS 02/26/16 05/05/17 Verapamil HCl [Verapamil ER] 180 mg PO HS 02/26/16 05/05/17 Mirtazapine [Remeron] 45 mg PO HS 03/11/17 05/05/17 Pregabalin [Lyrica] 200 mg PO BID 03/11/17 05/05/17 Omeprazole [PriLOSEC] 20 mg PO HS 03/25/17 05/05/17 Citalopram Hydrobromide [CeleXA] 40 mg PO DAILY 05/02/17 05/05/17 HYDROcodone/APAP 7.5-325MG [[place] 1 tab PO TID PRN 05/02/17 05/05/17 7.5-325] QUEtiapine FUMARATE [SEROquel] 100 mg PO HS 05/02/17 05/05/17 Previous Rx's Medication Instructions Recorded Benzonatate [Tessalon Perles] 100 mg PO TID #21 cap 05/02/17 Promethazine 6.25MG/5Ml [Phenergan 5 ml PO Q4HR PRN #120 ml 05/02/17 Syrup] Allergies Allergy/AdvReac Type Severity Reaction Status Date / Time azithromycin Allergy Unknown Rash/Hives Verified 05/05/17 11:05 [From Zithromax Z-Jeremie] acetaminophen AdvReac TREMORS Verified 05/05/17 11:05 [From Tylenol-Codeine #3] codeine phosphate AdvReac TREMORS Verified 05/05/17 11:05 [From Tylenol-Codeine #3] prednisone AdvReac Swelling Verified 05/05/17 11:05 Review of Systems ROS Statement: Those systems with pertinent positive or pertinent negative responses have been documented in the HPI. ROS Other: All systems not noted in ROS Statement are negative. Past Medical History Past Medical History: Asthma, GERD/Reflux, Myocardial Infarction ([place]), Renal Disease Additional Past Medical History / Comment(s): kidney stones, DJD- back pain., sciatic nerve pain, depression,ADHD, migraines, asthma and chronic bronchitis, DIVERTICULAR DISEASE, UTI, Last Myocardial Infarction Date:: 10/2013 History of Any Multi-Drug Resistant Organisms: None Reported Past Surgical History: Cholecystectomy, Tubal Ligation, Uterine Ablation Additional Past Surgical History / Comment(s): d & c nova sure, colposcopy Past Anesthesia/Blood Transfusion Reactions: No Reported Reaction Additional Past Anesthesia/Blood Transfusion Reaction / Comment(s): never recieved blood. CLAUSTERPHOBIA Past Psychological History: ADD/ADHD, Anxiety, Bipolar, Depression Smoking Status: Current every day smoker Past Alcohol Use History: None Reported Past Drug Use History: None Reported - Past Family History Father Family Medical History: Myocardial Infarction ([place]) Additional Family Medical History / Comment(s): FATHER HAD CT AT AGE 42 YRS. FATHER OF PANCREATIC CANCER. HE WAS AN ALCOHOLIC Mother Family Medical History: Coronary Artery Disease (CAD), Diabetes Mellitus, Myocardial Infarction ([place]) General Exam - General Exam Comments Initial Comments: GENERAL: The patient is well nourished and well hydrated. VITAL SIGNS: Heart rate, blood pressure, respiratory rate reviewed as recorded in nurse's notes. EYES: Pupils are round and reactive. Extraocular movements are intact. No conjunctival / lid redness or swelling. ENT: No external evidence of injury, swelling, or ecchymosis. Airway is patent. Throat is clear. NECK: Nontender. No swelling or evidence of injury. No subcutaneous emphysema. Trachea is midline. No thyroid mass. HEART: Regular rate and rhythm. Good peripheral pulses. LUNGS/CHEST: Wheezing is noted bilaterally and diffusely. No ecchymosis, subcutaneous emphysema, or tenderness. ABDOMEN: Abdomen soft without tenderness. No palpable masses or organomegaly. No peritoneal signs. No abdominal wall swelling or ecchymosis. EXTREMITIES: No extremity tenderness. Normal muscle tone and function. No thoracolumbar tenderness. NEUROLOGIC: Sensation is grossly intact. Cranial nerve exam reveals face is symmetrical, tongue is midline, speech is clear. SKIN: No abrasions or ecchymosis is noted. No induration or masses noted. PSYCHIATRIC: Alert and oriented. Appropriate behavior and judgment. Course Vital Signs 05/05/17 05/05/17 05/05/17 10:52 11:57 13:10 Temperature 101.9 F H Pulse Rate 100 95 Respiratory 18 22 Rate Blood Pressure 119/55 O2 Sat by Pulse 89 L Oximetry 05/05/17 05/05/17 05/05/17 13:32 13:52 14:37 Temperature 99.4 F Pulse Rate 101 H 82 Respiratory Rate Blood Pressure O2 Sat by Pulse Oximetry 05/05/17 05/05/17 14:55 14:56 Temperature Pulse Rate 97 100 Respiratory 20 Rate Blood Pressure 121/58 O2 Sat by Pulse 93 L Oximetry Medical Decision Making - Medical Decision Making The patient was seen and examined. All diagnostics were reviewed. The laboratory shows a decrease in the white blood cell count. The liver function studies are mildly elevated. The patient does have a fever as well as a headache and receives 30 mg of Toradol and does defervesce. She receives Solu- Medrol IV. A double DuoNeb breathing treatment was initially given and later repeated. The EKG shows a normal sinus rhythm at a rate of 80. There is no acute ST T-wave changes identified. The LA interval is 136, QRS duration is 84 , and QTC intervals 454. The pulse ox is down to 88% on 2 L consistent with respiratory failure. It is felt as though she would require admission to the hospital for further treatment. The x-ray does show evidence of a right basilar pneumonia per radiologist. She is given multiple breathing treatments and still does remain moderately hypoxic. She is approximately 92% on 5 L on recheck. She is still having some wheezing so a third double breathing treatment as well as an. It appears that her white blood cell count is low. Remainder of labs are reviewed. The case is discussed with Dr. Renner and he is agreeable to admission and she will be admitted for full admit. Approximately 30 minutes of critical care time is utilized and the treatment of the patient. - Lab Data Result diagrams: 05/05/17 12:55 05/05/17 12:55 Lab Results 05/05/17 05/05/17 05/05/17 Range/Units 12:55 12:55 12:55 WBC 2.9 L (3.8-10.6) k/uL RBC 4.01 (3.80-5.40) m/uL Hgb 13.2 (11.4-16.0) gm/dL Hct 36.5 (34.0-46.0) % MCV 91.0 (80.0-100.0) fL MCH 33.0 (25.0-35.0) pg MCHC 36.3 (31.0-37.0) g/dL RDW 14.0 (11.5-15.5) % Plt Count 110 L (150-450) k/uL Neutrophils % 76 % Lymphocytes % 16 % Monocytes % 5 % Eosinophils % 1 % Basophils % 0 % Neutrophils # 2.2 (1.3-7.7) k/uL Lymphocytes # 0.5 L (1.0-4.8) k/uL Monocytes # 0.1 (0-1.0) k/uL Eosinophils # 0.0 (0-0.7) k/uL Basophils # 0.0 (0-0.2) k/uL PT 10.7 (9.0-12.0) sec INR 1.1 (<1.1) APTT 22.7 (22.0-30.0) sec Sodium 138 (137-145) mmol/L Potassium 3.4 L (3.5-5.1) mmol/L Chloride 106 (98-107) mmol/L Carbon Dioxide 24 (22-30) mmol/L Anion Gap 8 mmol/L BUN 9 (7-17) mg/dL Creatinine 0.90 (0.52-1.04) mg/dL Est GFR (MDRD) Af Amer >60 (>60 ml/min/1.73 sqM) Est GFR (MDRD) Non-Af >60 (>60 ml/min/1.73 sqM) Glucose 104 H (74-99) mg/dL Calcium 8.3 L (8.4-10.2) mg/dL Total Bilirubin 0.3 (0.2-1.3) mg/dL AST 122 H (14-36) U/L ALT 95 H (9-52) U/L Alkaline Phosphatase 73 (38-126) U/L Total Protein 6.0 L (6.3-8.2) g/dL Albumin 3.6 (3.5-5.0) g/dL Disposition Clinical Impression: Acute respiratory failure, Bronchospasm, Leukopenia, Fever, Hypoxia, Transaminitis, Asthma with exacerbation, Community acquired pneumonia, Sepsis Disposition: ADMITTED IP TO THIS [facility] Condition: Fair Time of Disposition: 15:55 Decision Date: 05/05/17 Decision Time: 15:55
--- NOTE | 2017-05-05 15:23 | XR ---
EXAMINATION TYPE: XR chest 2V DATE OF EXAM: 05/05/2017 COMPARISON: 05/29/2017 HISTORY: Chest pain TECHNIQUE: Frontal and lateral views of the chest are obtained. FINDINGS: There is patchy density about the right and right medial base which may reflect infiltrate. Interstit ium is also mildly prominent. No evidence for pneumothorax. No pleural effusion. The cardiac silhouette size is within normal limits. The osseous structures are grossly intact. IMPRESSION: 1. There is patchy density about the right and right medial base which may reflect infiltrate. Inter stitium is also mildly prominent.
[2017-05-05] MEDS: MAGNESIUM SULFATE-D5W PMX 1 GM in DEXTROSE/WATER 1 100ML.BAG IVPB SCH ×2 (15:42→17:06)
[2017-05-05] MEDS ORDERED: BUDESONIDE 0.5 MG/2 ML NEBU INHALATION STA (15:52)
[2017-05-05] MEDS ORDERED: ALBUTEROL NEBULIZED 2.5 MG/3 ML INHALATION STA (15:52)
[2017-05-05] MEDS ORDERED: PNEUMONIA PROTOCOL UTILIZED 1 EACH MISC PO PRN (16:03)
[2017-05-05] MEDS ORDERED: PROMETHAZINE 6.25MG/5ML 147.5 MG/118 ML BOTTLE PO PRN (16:06)
[2017-05-05] MEDS ORDERED: SODIUM CHLORIDE 0.9% 1,000 ML IV ONE ×2 (17:11→17:12)
[2017-05-05] MEDS: methylPREDNISolone SOD SUCCI 125 MG/2 ML VIAL IV SCH ×2 (18:20→22:46)
[2017-05-05] MEDS: HYDROcodone/APAP 7.5-325MG 1 EACH TAB PO PRN (18:29)
[2017-05-05] MEDS: IPRATROPIUM-ALBUTEROL 3 ML NEB INHALATION PRN (20:08)
[2017-05-05] MEDS: BUDESONIDE 0.5 MG/2 ML NEBU INHALATION SCH (20:08)
[2017-05-05] MEDS: ACYCLOVIR 800 MG TAB PO SCH (21:20)
[2017-05-05] MEDS: MIRTAZAPINE 45 MG TABLET PO SCH (21:21)
[2017-05-05] MEDS: PANTOPRAZOLE 40 MG TABLET PO SCH (21:21)
[2017-05-05] MEDS: QUEtiapine 100 MG TAB PO SCH (21:21)
[2017-05-05] MEDS: VERAPAMIL SR 180 MG TABLET.ER PO SCH (21:21)
[2017-05-05] MEDS: METOPROLOL TARTRATE 25 MG TAB PO SCH (21:21)
[2017-05-05] MEDS: lamoTRIgine 100 MG TAB PO SCH (21:21)
[2017-05-05] MEDS ORDERED: RX INFO: IV CONTRAST WAS GIVEN 1 EACH MISC MISCELLANE PRN (22:27)
[2017-05-05] MEDS: PREGABALIN 100 MG CAP PO SCH (22:46)
--- NOTE | 2017-05-05 23:56 | P.CNPUL ---
History of Present Illness Consult date: 05/05/17 Requesting physician: Ghanshyam Renner Reason for consult: pneumonia Chief complaint: Fever and shortness of breath. History of present illness: This is a 36-year-old female with history of multiple medical problems including asthma, GERD, degenerative joint disease, depression, ADHD, migraine cephalgia, diverticular disease, and history of myocardial infarction. Patient presented to the ER a few days ago with mostly symptoms of cough and fever, cough was described as nonproductive. Patient was also complaining of intermittent headaches, no chest pain, no hemoptysis, no nausea, no vomiting. She did have occasional wheezing. Chest x-ray was described as normal, hence the patient was discharged home on cough suppressants, and advised to follow-up with her primary care physician. However over the last few days, her symptoms have been getting worse including increased shortness of breath, more dry hacking cough, more wheezing, and definitely more shortness of breath and more fever. Repeat chest x-ray on this evaluation showed a patchy density in the right medial base and there was evidence of prominent interstitium. Hence the patient was admitted. Upon my evaluation, I noted that the patient was having more symptoms than could be explained on the chest x-ray findings, hence I recommended that we continue antibiotics, and a stat CT of the chest was ordered. Patient's O2 saturation was only 92% on 5 L nasal cannula. On physical examination, she had more physical findings of the left base than the right base. Possibility of thromboembolic disease is being considered, and also the possibility of congestive heart failure is actually in the differential. Clearly the patient has prominent interstitium on the chest x-ray , and crackles at the bases more so at the left base. T-max on admission was 100. Patient had leukopenia with WBC count of 2.9, platelets were noted to be a bit low at 1 10,000, differential was relatively unremarkable. Recent metabolic profile was noted to be normal, lactic acid was normal on admission. Liver enzymes were noted to be borderline elevated including elevated AST and ALT. Review of Systems 14 point review of systems were obtained, please refer to pertinent positives and negatives in HPI. Past Medical History Past Medical History: Asthma, GERD/Reflux, Myocardial Infarction (ND), Renal Disease Additional Past Medical History / Comment(s): kidney stones, DJD- back pain., sciatic nerve pain, depression,ADHD, migraines, asthma and chronic bronchitis, DIVERTICULAR DISEASE, UTI,PNE Last Myocardial Infarction Date:: 10/2013 History of Any Multi-Drug Resistant Organisms: None Reported Past Surgical History: Cholecystectomy, Tubal Ligation, Uterine Ablation Additional Past Surgical History / Comment(s): d & c nova sure, colposcopy Past Anesthesia/Blood Transfusion Reactions: No Reported Reaction Additional Past Anesthesia/Blood Transfusion Reaction / Comment(s): never recieved blood. CLAUSTERPHOBIA Smoking Status: Current every day smoker - Past Family History Father Family Medical History: Myocardial Infarction (ND) Additional Family Medical History / Comment(s): FATHER HAD ND AT AGE 42 YRS. FATHER OF PANCREATIC CANCER. HE WAS AN ALCOHOLIC Mother Family Medical History: Coronary Artery Disease (CAD), Diabetes Mellitus, Myocardial Infarction (ND) Medications and Allergies Home Medications Medication Instructions Recorded Confirmed Type Acyclovir [Zovirax] 800 mg PO HS 09/02/14 05/05/17 History lamoTRIgine [LaMICtal] 300 mg PO HS 09/02/14 05/05/17 History Metoprolol Tartrate [Lopressor] 25 mg PO HS 02/26/16 05/05/17 History Verapamil HCl [Verapamil ER] 180 mg PO HS 02/26/16 05/05/17 History Mirtazapine [Remeron] 45 mg PO HS 03/11/17 05/05/17 History Pregabalin [Lyrica] 200 mg PO BID 03/11/17 05/05/17 History Omeprazole [PriLOSEC] 20 mg PO HS 03/25/17 05/05/17 History Citalopram Hydrobromide [CeleXA] 40 mg PO DAILY 05/02/17 05/05/17 History HYDROcodone/APAP 7.5-325MG [[place] 1 tab PO TID PRN 05/02/17 05/05/17 History 7.5-325] QUEtiapine FUMARATE [SEROquel] 100 mg PO HS 05/02/17 05/05/17 History Allergies Allergy/AdvReac Type Severity Reaction Status Date / Time azithromycin Allergy Unknown Rash/Hives Verified 05/05/17 11:05 [From Zithromax Z-Jeremie] magnesium sulfate Allergy Rash/Hives Verified 05/05/17 16:07 acetaminophen AdvReac TREMORS Verified 05/05/17 11:05 [From Tylenol-Codeine #3] codeine phosphate AdvReac TREMORS Verified 05/05/17 11:05 [From Tylenol-Codeine #3] prednisone AdvReac Swelling Verified 05/05/17 11:05 Physical Exam Vitals: Vital Signs Temp Pulse Pulse Resp BP BP Pulse Ox 05/05/17 20:23 104 H 05/05/17 20:08 102 H 05/05/17 17:56 99 F 108 H 22 126/65 93 L 05/05/17 17:16 100.4 F H 100 20 120/60 92 L 05/05/17 16:49 98 05/05/17 16:32 86 05/05/17 16:07 93 20 93 L 05/05/17 15:52 92 127/54 91 L 05/05/17 15:00 82 20 128/78 91 L 05/05/17 14:56 100 20 121/58 93 L 05/05/17 14:55 97 05/05/17 14:37 82 05/05/17 14:00 80 20 130/60 92 L 05/05/17 13:52 99.4 F 05/05/17 13:32 101 H 05/05/17 13:10 95 05/05/17 11:57 22 05/05/17 10:52 101.9 F H 100 18 119/55 89 L Intake and Output 05/05/17 05/05/17 05/06/17 14:59 22:59 06:59 Intake Total 1500 Balance 1500 Intake: Amount of Fluid Infused ( 1500 ml) Other: # Voids 1 Weight 142.882 kg Patient Weight 05/06/17 06:59 Weight 142.882 kg Physical Exam: Revealed a 56-year-old female, obese, noted to be dyspneic with any activity even on 5 L nasal cannula. HEENT:[Neck is supple.] [No neck masses.] [No thyromegaly.] [No JVD.] Chest: [Crackles and rhonchi at the bases especially at the left base. Cardiac Exam: [Normal S1 and S2, no S3 gallop, no murmur.] Abdomen: [Soft, nontender, no megaly, no rebound, no guarding, normal bowel sounds.] Extremities: [No clubbing, trace of bipedal edema, no cyanosis.] Neurological Exam: [No focal neurologic deficit.] Results - Laboratory Findings CBC and BMP: 05/05/17 12:55 05/05/17 12:55 PT/INR, D-dimer PT 10.7 sec (9.0-12.0) 05/05/17 12:55 INR 1.1 (<1.1) 05/05/17 12:55 Abnormal lab findings: Abnormal Labs 05/05/17 05/05/17 12:55 12:55 WBC 2.9 L Plt Count 110 L Lymphocytes # 0.5 L Potassium 3.4 L Glucose 104 H Calcium 8.3 L AST 122 H ALT 95 H Total Protein 6.0 L - Diagnostic Findings Chest x-ray: image reviewed (Evidence of prominent interstitium, no clear-cut evidence of pneumonia noted on chest x-ray hence a CT of the chest was ordered.) Assessment and Plan Plan: Impression: Acute hypoxic respiratory failure secondary to acute asthma exacerbation, possible community-acquired pneumonia, possible component of congestive heart failure hence an echocardiogram will be ordered in a.m. Possibility of thrombus embolic disease is being considered hence a CT of the chest was ordered to be done stat. In the meantime the patient will be kept on antibiotics, bronchodilators, steroids, cut down her IV fluid to KVO, and consider gentle diuresis. We'll continue to follow. Time with Patient: Greater than 30
--- NOTE | 2017-05-06 00:48 | CT ---
EXAM: CT Angiography Chest With Intravenous Contrast CLINICAL HISTORY: Reason: sob, hypoxia TECHNIQUE: Axial computed tomographic angiography images of the chest with intravenous contrast using pulmonary embolism protocol. CTDI is 21.3 mGy and DLP is 798 mGy-cm. This CT exam was performed using one or more of the following dose reduction techniques: automated exposure control, adjustment of the mA and/or kV according to patient size, and/or use of iterative reconstruction technique. MIP reconstructed images were created and reviewed. Coronal and sagittal reformatted images were created and reviewed. COMPARISON: CXR 05/05/17 and 05/02/17 FINDINGS: Pulmonary arteries: Suboptimal evaluation for pulmonary embolism due to poor bolus. No definite central pulmonary embolus. Aorta: No acute findings. No thoracic aortic aneurysm. Lungs: Multiple areas of predominantly centrilobular nodular density within the lower lobes include a focal area of consolidation in the medial right lower lobe. Right hilar consolidation is also seen. Nodular densities are seen in the right upper lobe as well the right middle lobe. Pleural space: Unremarkable. No significant effusion. No pneumothorax. Heart: Unremarkable. No cardiomegaly. No significant pericardial effusion. No evidence of RV dysfunction. Bones/joints: No acute fracture. No dislocation. Soft tissues: Unremarkable. Lymph nodes: Unremarkable. No enlarged lymph nodes. IMPRESSION: 1. Suboptimal evaluation for pulmonary embolism due to poor bolus. No definite central pulmonary embolus. 2. Multiple areas of predominantly centrilobular nodular density within the lower lobes include a focal area of consolidation in the medial right lower lobe. Right hilar consolidation is also seen. Nodular densities are seen in the right upper lobe as well the right middle lobe. This may represent a bronchiolitis, transbronchial spread of infection or other airway centric infectious process. Given the right hilar component of the process, consider follow up CT after resolution of symptoms.
[2017-05-06] MEDS: SODIUM CHLORIDE 0.9% 1,000 ML IV SCH ×2 (01:00→23:24)
[2017-05-06] MEDS: FUROSEMIDE 10 MG/ML 2 ML VIAL IV SCH ×3 (01:00→21:01)
[2017-05-06 03:32] LABS: Appearance,Urine Clear (Clear); Bacteria,Urine Rare /hpf; Bilirubin,Urine Negative (Negative); Glucose,Urine (UA) Negative (Negative); Ketones,Urine Negative (Negative); Leukocyte Esterase,Urine Negative (Negative); Nitrite,Urine Negative (Negative); PH, Urine 5.5 (5.0-8.0); Particle Count 1047; Protein,Urine Negative (Negative); RBC,Urine 13 /hpf (0-5); Specific Gravity,Urine 1.011 (1.001-1.035); Squamous Epithelial Cell,Urine <1 /hpf (0-4); UA Billing (MACRO vs. MICRO) MICRO; Urobilinogen,Urine <2.0 mg/dL (<2.0); WBC,Urine 1 /hpf (0-5)
[2017-05-06] MEDS: HYDROcodone/APAP 7.5-325MG 1 EACH TAB PO PRN ×3 (03:33→20:58)
[2017-05-06] MEDS: BUDESONIDE 0.5 MG/2 ML NEBU INHALATION SCH ×2 (07:25→20:32)
[2017-05-06] MEDS: IPRATROPIUM-ALBUTEROL 3 ML NEB INHALATION PRN ×4 (07:25→20:32)
[2017-05-06] MEDS: CITALOPRAM HYDROBROMIDE 20 MG TAB PO SCH (09:25)
[2017-05-06] MEDS: ENOXAPARIN 40 MG/0.4 ML SYRINGE SQ SCH (09:25)
[2017-05-06] MEDS: methylPREDNISolone SOD SUCCI 125 MG/2 ML VIAL IV SCH ×3 (09:26→17:28)
--- NOTE | 2017-05-06 09:30 | XR ---
EXAMINATION TYPE: XR chest 1V portable DATE OF EXAM: 05/06/2017 Comparison: 05/05/2017 Clinical History: 36-year-old female follow-up chf/pneumonia Findings: The heart is normal size. Mild diffuse interstitial prominence with some increasing right perihilar, infrahilar, and medial right basilar opacity. Some increased density peripheral left base also noted. No significant pleural effusion seen. Impression: Some increased patchy right perihilar, medial right basilar, and peripheral left basilar infiltrates. Multifocal pneumonia not excluded.
[2017-05-06] MEDS: PREGABALIN 100 MG CAP PO SCH ×2 (10:05→21:00)
[2017-05-06 10:28] LABS: Hemoglobin A1C 5.9 % (4.2-6.1)
[2017-05-06 11:30] LABS: CH 31.8; CHCM 34.4; HCT 37.4 % (34.0-46.0); HDW 3.02; HGB 13.1 gm/dL (11.4-16.0); MCH 32.6 pg (25.0-35.0); MCHC 35.1 g/dL (31.0-37.0); MCV 92.9 fL (80.0-100.0); Mean Platelet Volume 8.1; RBC 4.02 m/uL (3.80-5.40); RDW 13.9 % (11.5-15.5); WBC 5.1 k/uL (3.8-10.6)
[2017-05-06 11:37] LABS: Anion Gap 11 mmol/L; Blood Urea Nitrogen 13 mg/dL (7-17); Calcium 8.9 mg/dL (8.4-10.2); Carbon Dioxide 26 mmol/L (22-30); Chloride 104 mmol/L (98-107); Glucose 264 mg/dL (74-99); Non-African American GFR(MDRD) >60 (>60 ml/min/1.73 sqM); Potassium 3.4 mmol/L (3.5-5.1); Sodium 141 mmol/L (137-145)
--- NOTE | 2017-05-06 12:09 | P.PN ---
Subjective Principal diagnosis: Acute bilateral pneumonia, community-acquired. This is a 36-year-old female with history of multiple medical problems including asthma, GERD, degenerative joint disease, depression, ADHD, migraine cephalgia, diverticular disease, and history of myocardial infarction. Patient presented to the ER a few days ago with mostly symptoms of cough and fever, cough was described as nonproductive. Patient was also complaining of intermittent headaches, no chest pain, no hemoptysis, no nausea, no vomiting. She did have occasional wheezing. Chest x-ray was described as normal, hence the patient was discharged home on cough suppressants, and advised to follow-up with her primary care physician. However over the last few days, her symptoms have been getting worse including increased shortness of breath, more dry hacking cough, more wheezing, and definitely more shortness of breath and more fever. Repeat chest x-ray on this evaluation showed a patchy density in the right medial base and there was evidence of prominent interstitium. Hence the patient was admitted. Upon my evaluation, I noted that the patient was having more symptoms than could be explained on the chest x-ray findings, hence I recommended that we continue antibiotics, and a stat CT of the chest was ordered. Patient's O2 saturation was only 92% on 5 L nasal cannula. On physical examination, she had more physical findings of the left base than the right base. Possibility of thromboembolic disease is being considered, and also the possibility of congestive heart failure is actually in the differential. Clearly the patient has prominent interstitium on the chest x-ray , and crackles at the bases more so at the left base. T-max on admission was 100. Patient had leukopenia with WBC count of 2.9, platelets were noted to be a bit low at 1 10,000, differential was relatively unremarkable. Recent metabolic profile was noted to be normal, lactic acid was normal on admission. Liver enzymes were noted to be borderline elevated including elevated AST and ALT. Patient was reevaluated today on 05/06/2017, seems to be doing a little bit better , CT of the chest showed no evidence of pulmonary embolism, but definitely showed more than what was initially reported on the chest x-ray, there is significant bilateral air space disease and nodular infiltrates. Hence I have recommended that she remains on the same antibiotics, bronchodilators, diuretics , I have also recommended screening for Legionella and for possible Oral's granulomatosis, since the patient has chronic history of microscopic hematuria. Over the last 24 hours, there has been definite slight improvement. I explained to the patient that if she does not improve much over the next couple of days, she will definitely need bronchoscopy and possible lung biopsy. Objective - Vital Signs Vital signs: Vital Signs Temp 98.4 F 05/06/17 07:00 Pulse 100 05/06/17 11:16 Resp 20 05/06/17 11:16 BP 119/61 05/06/17 07:00 Pulse Ox 91 L 05/06/17 07:00 Intake & Output 05/05/17 05/06/17 05/06/17 18:59 06:59 18:59 Intake Total 1500 Balance 1500 Weight 142.882 kg Intake: Amount of Fluid Infused ( 1500 ml) Other: Voiding Method Toilet # Voids 2 - Exam Physical Exam: Revealed a 56-year-old female, obese, noted to be dyspneic with any activity even on 5 L nasal cannula. HEENT:[Neck is supple.] [No neck masses.] [No thyromegaly.] [No JVD.] Chest: [Crackles and rhonchi at the bases especially at the left base. Cardiac Exam: [Normal S1 and S2, no S3 gallop, no murmur.] Abdomen: [Soft, nontender, no megaly, no rebound, no guarding, normal bowel sounds.] Extremities: [No clubbing, trace of bipedal edema, no cyanosis.] Neurological Exam: [No focal neurologic deficit.] - Labs CBC & Chem 7: 05/06/17 11:09 05/06/17 11:09 Labs: Abnormal Lab Results - Last 24 Hours (Table) 05/05/17 05/05/17 05/06/17 Range/Units 12:55 12:55 03:20 WBC 2.9 L (3.8-10.6) k/uL Plt Count 110 L (150-450) k/uL Lymphocytes # 0.5 L (1.0-4.8) k/uL Potassium 3.4 L (3.5-5.1) mmol/L Glucose 104 H (74-99) mg/dL Calcium 8.3 L (8.4-10.2) mg/dL AST 122 H (14-36) U/L ALT 95 H (9-52) U/L Total Protein 6.0 L (6.3-8.2) g/dL Urine Blood Moderate H (Negative) Urine RBC 13 H (0-5) /hpf Urine Bacteria Rare H (None) /hpf 05/06/17 05/06/17 Range/Units 11:09 11:09 WBC (3.8-10.6) k/uL Plt Count 137 L (150-450) k/uL Lymphocytes # (1.0-4.8) k/uL Potassium 3.4 L (3.5-5.1) mmol/L Glucose 264 H (74-99) mg/dL Calcium (8.4-10.2) mg/dL AST (14-36) U/L ALT (9-52) U/L Total Protein (6.3-8.2) g/dL Urine Blood (Negative) Urine RBC (0-5) /hpf Urine Bacteria (None) /hpf Assessment and Plan Plan: Impression: Acute hypoxic respiratory failure secondary to acute asthma exacerbation, possible community-acquired pneumonia, possible component of congestive heart failure hence an echocardiogram will be ordered in a.m. thromboembolic disease was ruled out based on the CT of the chest. Recommendation: Continue present course of treatment including antibiotics, bronchodilators, steroids, I ordered urine for Legionella antigen, I also ordered a sed rate, CANCA, and echocardiogram is pending. Patient is demonstrating slight improvement, however she was made aware that if she does not improve significantly over the next few days, she will need to have bronchoscopy and washings of her lungs as well as possible biopsy. Continue to follow. Time with Patient: Less than 30
[2017-05-06 12:17] LABS: Glucose,Whole Blood 275 mg/dL (75-99)
[2017-05-06] MEDS: INSULIN LISPRO (humaLOG) 300 UNIT/3 ML VIAL SQ SCH ×3 (12:27→21:16)
[2017-05-06] MEDS ORDERED: Potassium Replacement Protocol 1 EACH MISC MISCELLANE PRN (12:33)
[2017-05-06 13:38] LABS: Erythrocyte Sedimentation Rate 35 mm/hr (0-20)
[2017-05-06] MEDS: POTASSIUM CHLORIDE ER 20 MEQ TAB.ER PO SCH ×2 (13:59→15:11)
[2017-05-06] MEDS ORDERED: LEVOFLOXACIN 750MG-D5W PMX 750 MG in DEXTROSE/WATER 1 150ML.BAG IVPB SCH (14:00)
[2017-05-06 17:21] LABS: Glucose,Whole Blood 269 mg/dL (75-99)
--- NOTE | 2017-05-06 17:25 | ECHOF ---
Referral Reason:sob,previous mi. MEASUREMENTS -------- HEIGHT: 177.8 cm WEIGHT: 142.9 kg BP: 119/61 RVIDd: 2.9 cm (< 3.3) IVSd: 1.1 cm (0.6 - 1.1) LVIDd: 5.3 cm (3.9 - 5.3) LVPWd: 1.2 cm (0.6 - 1.1) IVSs: 1.7 cm LVIDs: 3.0 cm LVPWs: 1.6 cm LAESV Index (A-L): 22.14 ml/m Ao Diam: 3.6 cm (2.0 - 3.7) AV Cusp: 1.8 cm (1.5 - 2.6) LA Diam: 3.7 cm (2.7 - 3.8) MV EXCURSION: 20.824 mm (> 18.000) MV EF SLOPE: 114 mm/s (70 - 150) EPSS: 1.4 cm MV E Geronimo: 1.21 m/s MV DecT: 257 ms MV A Geron[place]: 0.60 m/s MV E/A Ratio: 2.03 RAP: 5.00 mmHg RVSP: 14.84 mmHg FINDINGS -------- Sinus rhythm. This was a technically adequate study. There is borderline concentric left ventricular hypertrophy. Overall left ventricular systolic function is normal with, an EF between 60 - 65 %. The right ventricle is normal in size and function. Normal LA size by volume 22+/-6 ml/m2. The right atrium is normal in size. Aortic valve is trileaflet and is mildly thickened. There is no evidence of aortic regurgitation. There is no evidence of aortic stenosis. The mitral valve leaflets are mildly thickened. There is trace mitral regurgitation. Trace tricuspid regurgitation present. There is no evidence of pulmonary hypertension. The right ventricular systolic pressure, as measured by Doppler, is 14.84mmHg. The pulmonic valve was not well visualized. The aortic root size is normal. IVC Not well visulized. The pericardium is normal. There is no pericardial effusion. CONCLUSIONS -------- 1. Sinus rhythm. 2. There is no evidence of pulmonary hypertension. 3. The right ventricular systolic pressure, as measured by Doppler, is 14.84mmHg. 4. The pulmonic valve was not well visualized. 5. The aortic root size is normal. 6. IVC Not well visulized. 7. There is no pericardial effusion. 8. This was a technically adequate study. 9. There is borderline concentric left ventricular hypertrophy. 10. Overall left ventricular systolic function is normal with, an EF between 60 - 65 %. 11. Normal LA size by volume 22+/-6 ml/m2. 12. Aortic valve is trileaflet and is mildly thickened. 13. The mitral valve leaflets are mildly thickened. 14. There is trace mitral regurgitation. 15. Trace tricuspid regurgitation present. [employer] ADVISOR: Willard Molina RDCS
--- NOTE | 2017-05-06 17:53 | P.CONS ---
History of Present Illness - Reason for Consult Consult date: 05/06/17 Possible vasculitis - Chief Complaint Shortness of breath and rash - History of Present Illness This is a 36 y/o female with a PMH significant for chronic bronchitis, GERD, AK , nephrolithiasis, headache disorder, and osteoarthritis who presented to the [facility] ER a few days ago with sx of cough and fever. Pt. states that she initially had a temperature of 102.7 F on Tuesday and went to the ER and CXR was done and was found to be overall normal so patient was sent home. Pt. states that her fever and pulmonary symptoms persisted and she continued to have high fevers. Pt. denies any hemoptysis but she describes shortness of breath and a nonproductive cough. Pt. then returned to the ER and CXR revealed a patchy density in her RT medial lung base. Chest CT was then done and this revealed no definite PE; areas of nodular density, a focal area of consolidation in pt.'s RT medial lower lobe and there also was RT hilar consolidation. Pt. has been on IVF and ABX and she also has been on IV steroids as well. Pt.'s initial WBC count was low at 2.9, pt. had elevated LFTs, slightly low platelets and elevated ESR at 35. Upon speaking with patient today, she was seated comfortably in her hospital bed watching television. Pt. was wearing nasal cannula and she did seem to have mild shortness of breath while speaking with myself today. Pt. states that on Tuesday she noticed a rash on her legs, arms, and buttock region although this may have been there prior; patient is not sure. The rash is not itchy or painful. She denies ever having a similar rash in the past. Pt. also denies any joint pain or joint swelling. T Review of Systems All systems: negative Constitutional: Reports chronic headaches, Reports fever, Reports weakness, Denies chills Eyes: denies blurred vision, denies pain Ears, nose, mouth and throat: Denies epistaxis, Denies sore throat Cardiovascular: Reports shortness of breath, Denies chest pain Respiratory: Reports cough, Denies hemoptysis Gastrointestinal: Denies abdominal pain, Denies diarrhea, Denies nausea, Denies vomiting Genitourinary: Denies dysuria, Denies hematuria Musculoskeletal: Denies myalgias Integumentary: Reports rash, Denies pruritus Neurological: Denies numbness, Denies weakness Psychiatric: Denies anxiety Endocrine: Denies fatigue, Denies weight change Past Medical History Past Medical History: Asthma, GERD/Reflux, Myocardial Infarction (AK), Renal Disease Additional Past Medical History / Comment(s): kidney stones, DJD- back pain., sciatic nerve pain, depression,ADHD, migraines, asthma and chronic bronchitis, DIVERTICULAR DISEASE, UTI,PNE Last Myocardial Infarction Date:: 10/2013 History of Any Multi-Drug Resistant Organisms: None Reported Past Surgical History: Cholecystectomy, Tubal Ligation, Uterine Ablation Additional Past Surgical History / Comment(s): d & c nova sure, colposcopy Past Anesthesia/Blood Transfusion Reactions: No Reported Reaction Additional Past Anesthesia/Blood Transfusion Reaction / Comm: never recieved blood. CLAUSTERPHOBIA Smoking Status: Current every day smoker - Past Family History Father Family Medical History: Myocardial Infarction (AK) Additional Family Medical History / Comment(s): FATHER HAD AK AT AGE 42 YRS. FATHER OF PANCREATIC CANCER. HE WAS AN ALCOHOLIC Mother Family Medical History: Coronary Artery Disease (CAD), Diabetes Mellitus, Myocardial Infarction (AK) Medications and Allergies Home Medications Medication Instructions Recorded Confirmed Type Acyclovir [Zovirax] 800 mg PO HS 09/02/14 05/05/17 History lamoTRIgine [LaMICtal] 300 mg PO HS 09/02/14 05/05/17 History Metoprolol Tartrate [Lopressor] 25 mg PO HS 02/26/16 05/05/17 History Verapamil HCl [Verapamil ER] 180 mg PO HS 02/26/16 05/05/17 History Mirtazapine [Remeron] 45 mg PO HS 03/11/17 05/05/17 History Pregabalin [Lyrica] 200 mg PO BID 03/11/17 05/05/17 History Omeprazole [PriLOSEC] 20 mg PO HS 03/25/17 05/05/17 History Citalopram Hydrobromide [CeleXA] 40 mg PO DAILY 05/02/17 05/05/17 History HYDROcodone/APAP 7.5-325MG [[place] 1 tab PO TID PRN 05/02/17 05/05/17 History 7.5-325] QUEtiapine FUMARATE [SEROquel] 100 mg PO HS 05/02/17 05/05/17 History Allergies Allergy/AdvReac Type Severity Reaction Status Date / Time azithromycin Allergy Unknown Rash/Hives Verified 05/05/17 11:05 [From Zithromax Z-Jeremie] magnesium sulfate Allergy Rash/Hives Verified 05/05/17 16:07 acetaminophen AdvReac TREMORS Verified 05/05/17 11:05 [From Tylenol-Codeine #3] codeine phosphate AdvReac TREMORS Verified 05/05/17 11:05 [From Tylenol-Codeine #3] prednisone AdvReac Swelling Verified 05/05/17 11:05 Physical Exam Vitals: Vital Signs Temp Pulse Pulse Resp BP BP Pulse Ox 05/06/17 15:18 100 05/06/17 15:05 100 05/06/17 15:00 99.1 F 64 16 122/53 91 L 05/06/17 11:16 100 20 05/06/17 11:06 110 H 18 05/06/17 08:00 24 05/06/17 07:40 118 H 05/06/17 07:25 100 05/06/17 07:00 98.4 F 78 14 119/61 91 L 05/06/17 06:09 90 L 05/05/17 23:00 99.2 F 89 16 132/64 92 L 05/05/17 20:23 104 H 05/05/17 20:08 102 H 05/05/17 17:56 99 F 108 H 22 126/65 93 L 05/05/17 17:16 100.4 F H 100 20 120/60 92 L 05/05/17 16:49 98 Intake and Output 05/06/17 05/06/17 05/06/17 06:59 14:59 22:59 Intake Total 1660 Balance 1660 Intake: Intake, IV Titration 160 Amount Sodium Chloride 0.9% 1, 160 000 ml @ 20 mls/hr IV . Q24H [facility] Rx#:[id number] Oral 1500 Other: Voiding Method Toilet # Voids 2 1 3 Weight 142.882 kg Patient Weight 05/07/17 06:59 Weight 142.882 kg - Constitutional General appearance: mild distress (pt. comfortable however mild shortness of breath noted with conversation ) - EENT Eyes: EOMI - Neck Neck: no lymphadenopathy - Respiratory Respiratory: left: rales - Cardiovascular Rhythm: regular - Gastrointestinal General gastrointestinal: no organomegaly, soft, no tenderness - Integumentary Integumentary: rash (scatterred petechiae noted on pt.'s ankles and feet; nonblanchable with pressure, nonraised. Nonraised purpura noted on pt.'s low back and buttocks region and on her B/L elbow flexor surfaces. Rash seems consistent with vasculitic rash versus HSP. ) - Neurologic Neurologic: CNII-XII intact - Musculoskeletal Musculoskeletal: gait normal, no generalized weakness, strength equal bilaterally (no сергей synovitis noted noted ) - Psychiatric Psychiatric: A&O x's 3 Results CBC & Chem 7: 05/06/17 11:09 05/06/17 11:09 Labs: Abnormal Lab Results - Last 24 Hours (Table) 05/06/17 05/06/17 05/06/17 Range/Units 03:20 11:09 11:09 Plt Count 137 L (150-450) k/uL ESR 35 H (0-20) mm/hr Potassium 3.4 L (3.5-5.1) mmol/L Glucose 264 H (74-99) mg/dL POC Glucose (mg/dL) (75-99) mg/dL Urine Blood Moderate H (Negative) Urine RBC 13 H (0-5) /hpf Urine Bacteria Rare H (None) /hpf 05/06/17 Range/Units 12:15 Plt Count (150-450) k/uL ESR (0-20) mm/hr Potassium (3.5-5.1) mmol/L Glucose (74-99) mg/dL POC Glucose (mg/dL) 275 H (75-99) mg/dL Urine Blood (Negative) Urine RBC (0-5) /hpf Urine Bacteria (None) /hpf Microbiology - Last 24 Hours (Table) 05/05/17 12:55 Blood Culture - Preliminary Blood No Growth after 24 hours Assessment and Plan Plan: After examining the patient today I did speak with Dr. Dunn regarding patient' s case. At this time, patient's rash does seem highly consistent with HSP due to infection versus a small vessel leukocytoclastic vasculitis. Differentials at this time include cryoglobulinemia, autoimmune-related vasculitis (related to RA, SLE, etc.), or that related to hepatitis C. A complete autoimmune blood panel was ordered. At this time it is recommended to continue patient on IV steroids 60 mg q 6 hours and no immunosuppressives will be considered until a definitive diagnosis of vasculitis is made. At this time, the only way to definitively confirm vasculitis is with a lung biopsy, which can wait to be done until patient is seen as outpatient. We will await bloodwork results and see the patient in the office once she is discharged. The patient's case was discussed with Dr. Dunn who does agree with the above assessment and plan. Time with Patient: Less than 30
[2017-05-06 19:10] LABS: Anion Gap 12 mmol/L; Blood Urea Nitrogen 14 mg/dL (7-17); C Reactive Protein 44.2 mg/L (<10.0); Calcium 9.2 mg/dL (8.4-10.2); Carbon Dioxide 22 mmol/L (22-30); Chloride 105 mmol/L (98-107); Creatine Kinase 250 U/L (30-135); Glucose 235 mg/dL (74-99); Non-African American GFR(MDRD) >60 (>60 ml/min/1.73 sqM); Potassium 3.8 mmol/L (3.5-5.1); Sodium 139 mmol/L (137-145); Uric Acid 5.8 mg/dL (3.7-7.4)
[2017-05-06 19:16] LABS: Rheumatoid Factor, Qnt <9 IU/mL (<12)
[2017-05-06 20:24] LABS: Hepatitis B Surface Ag Index 0.06
[2017-05-06 20:41] LABS: Hepatitis C Virus IgG Ab Negative (Negative); Hepatitis C Virus IgG Index 0.04
[2017-05-06 20:47] LABS: Glucose,Whole Blood 261 mg/dL (75-99)
[2017-05-06] MEDS: LIDOCAINE 2% GEL 30 ML TUBE TOPICAL SCH (21:00)
[2017-05-06] MEDS: lamoTRIgine 100 MG TAB PO SCH (21:01)
[2017-05-06] MEDS: MIRTAZAPINE 45 MG TABLET PO SCH (21:01)
[2017-05-06] MEDS: METOPROLOL TARTRATE 25 MG TAB PO SCH (21:01)
[2017-05-06] MEDS: QUEtiapine 100 MG TAB PO SCH (21:01)
[2017-05-06] MEDS: VERAPAMIL SR 180 MG TABLET.ER PO SCH (21:01)
[2017-05-06] MEDS: ACYCLOVIR 800 MG TAB PO SCH (21:02)
[2017-05-06] MEDS: PANTOPRAZOLE 40 MG TABLET PO SCH (21:02)
[2017-05-07] MEDS: methylPREDNISolone SOD SUCCI 125 MG/2 ML VIAL IV SCH ×5 (00:24→23:55)
[2017-05-07] MEDS: IPRATROPIUM-ALBUTEROL 3 ML NEB INHALATION PRN ×3 (02:27→11:19)
[2017-05-07 07:05] LABS: Glucose,Whole Blood 208 mg/dL (75-99)
[2017-05-07 07:46] LABS: Basophils % (A) 0 %; CH 31.8; CHCM 34.5; Eosinophils % (A) 0 %; HCT 36.2 % (34.0-46.0); HDW 3.05; HGB 12.7 gm/dL (11.4-16.0); Luc # (Auto) 0.31; Luc % (Auto) 4; Lymphocytes # (A) 1.3 k/uL (1.0-4.8); Lymphocytes % (A) 16 %; MCH 32.5 pg (25.0-35.0); MCHC 35.1 g/dL (31.0-37.0); MCV 92.6 fL (80.0-100.0); Mean Platelet Volume 7.9; Monocytes # (A) 0.4 k/uL (0-1.0); Monocytes % (A) 5 %; Neutrophils # (A) 6.2 k/uL (1.3-7.7); Neutrophils % (A) 75 %; RBC 3.91 m/uL (3.80-5.40); WBC 8.3 k/uL (3.8-10.6); WBC (Perox) 8.94
[2017-05-07] MEDS: BUDESONIDE 0.5 MG/2 ML NEBU INHALATION SCH (07:51)
[2017-05-07] MEDS: INSULIN LISPRO (humaLOG) 300 UNIT/3 ML VIAL SQ SCH ×5 (07:55→23:56)
[2017-05-07] MEDS: CITALOPRAM HYDROBROMIDE 20 MG TAB PO SCH (07:56)
[2017-05-07] MEDS: ENOXAPARIN 40 MG/0.4 ML SYRINGE SQ SCH (07:57)
[2017-05-07] MEDS: FUROSEMIDE 10 MG/ML 2 ML VIAL IV SCH ×2 (07:57→20:01)
[2017-05-07] MEDS: LIDOCAINE 2% GEL 30 ML TUBE TOPICAL SCH ×2 (07:57→22:02)
[2017-05-07 07:58] LABS: Anion Gap 9 mmol/L; Blood Urea Nitrogen 21 mg/dL (7-17); Carbon Dioxide 27 mmol/L (22-30); Chloride 105 mmol/L (98-107); Glucose 193 mg/dL (74-99); Non-African American GFR(MDRD) >60 (>60 ml/min/1.73 sqM); Potassium 3.8 mmol/L (3.5-5.1); Sodium 141 mmol/L (137-145)
[2017-05-07] MEDS: PREGABALIN 100 MG CAP PO SCH ×2 (08:00→20:00)
[2017-05-07] MEDS: HYDROcodone/APAP 7.5-325MG 1 EACH TAB PO PRN ×3 (08:00→20:00)
--- NOTE | 2017-05-07 09:15 | XR ---
EXAMINATION TYPE: XR chest 1V portable DATE OF EXAM: 05/07/2017 Comparison: 05/06/2017 Clinical History: 36 year-old female shortness of breath Findings: The heart is upper limits of normal in size. Diffuse interstitial prominence with improving aeration in the right perihilar and medial right basilar as well as peripheral left basilar regions. Residual patchy opacity remains along the left heart margin. No significant pleural effusion. Impression: Improving aeration throughout the lungs. Residual left basilar opacity remains.
[2017-05-07 10:49] LABS: Glucose,Whole Blood 259 mg/dL (75-99)
[2017-05-07 11:31] LABS: Glucose,Whole Blood 254 mg/dL (75-99)
[2017-05-07] MEDS ORDERED: IPRATROPIUM-ALBUTEROL 3 ML NEB INHALATION PRN (11:36)
--- NOTE | 2017-05-07 11:40 | P.PN ---
Subjective Principal diagnosis: Acute bilateral multilobar pneumonia, community-acquired. This is a 36-year-old female with history of multiple medical problems including asthma, GERD, degenerative joint disease, depression, ADHD, migraine cephalgia, diverticular disease, and history of myocardial infarction. Patient presented to the ER a few days ago with mostly symptoms of cough and fever, cough was described as nonproductive. Patient was also complaining of intermittent headaches, no chest pain, no hemoptysis, no nausea, no vomiting. She did have occasional wheezing. Chest x-ray was described as normal, hence the patient was discharged home on cough suppressants, and advised to follow-up with her primary care physician. However over the last few days, her symptoms have been getting worse including increased shortness of breath, more dry hacking cough, more wheezing, and definitely more shortness of breath and more fever. Repeat chest x-ray on this evaluation showed a patchy density in the right medial base and there was evidence of prominent interstitium. Hence the patient was admitted. Upon my evaluation, I noted that the patient was having more symptoms than could be explained on the chest x-ray findings, hence I recommended that we continue antibiotics, and a stat CT of the chest was ordered. Patient's O2 saturation was only 92% on 5 L nasal cannula. On physical examination, she had more physical findings of the left base than the right base. Possibility of thromboembolic disease is being considered, and also the possibility of congestive heart failure is actually in the differential. Clearly the patient has prominent interstitium on the chest x-ray , and crackles at the bases more so at the left base. T-max on admission was 100. Patient had leukopenia with WBC count of 2.9, platelets were noted to be a bit low at 1 10,000, differential was relatively unremarkable. Recent metabolic profile was noted to be normal, lactic acid was normal on admission. Liver enzymes were noted to be borderline elevated including elevated AST and ALT. Patient was reevaluated today on 05/06/2017, seems to be doing a little bit better , CT of the chest showed no evidence of pulmonary embolism, but definitely showed more than what was initially reported on the chest x-ray, there is significant bilateral air space disease and nodular infiltrates. Hence I have recommended that she remains on the same antibiotics, bronchodilators, diuretics , I have also recommended screening for Legionella and for possible Oral's granulomatosis, since the patient has chronic history of microscopic hematuria. Over the last 24 hours, there has been definite slight improvement. I explained to the patient that if she does not improve much over the next couple of days, she will definitely need bronchoscopy and possible lung biopsy. The patient is seen again today 05/07/2017 in follow-up on the regular medical floor. She is awake and alert. She is actually working harder to breathe today as compared to yesterday. Approximate 4:00 this morning she required quested a breathing treatment. She had a second one as well without much improvement. She is audibly wheezing and dyspneic on conversation. She has a loose nonproductive cough. She is requiring increased FiO2 requirements and currently on 7 L high flow nasal cannula to maintain O2 saturations in the low 90s. Her chest x-ray is about the same, no significant improvement in the past 24 hours. Objective - Vital Signs Vital signs: Vital Signs Temp 97.3 F L 05/07/17 07:00 Pulse 90 05/07/17 11:17 Resp 18 05/07/17 11:17 BP 136/69 05/07/17 07:00 Pulse Ox 92 L 05/07/17 07:51 Intake & Output 05/06/17 05/07/17 05/07/17 18:59 06:59 18:59 Intake Total 1660 Balance 1660 Weight 142.882 kg Intake: Intake, IV Titration 160 Amount Sodium Chloride 0.9% 1, 160 000 ml @ 20 mls/hr IV . Q24H [facility] Rx#:[id number] Oral 1500 Other: Voiding Method Toilet Bedside Commode # Voids 3 2 2 - Exam GENERAL EXAM: Alert, dyspneic on conversation and with minimal exertion. HEAD: Normocephalic. EYES: Normal reaction of pupils, equal size. NOSE: Clear with pink turbinates. THROAT: No erythema or exudates. NECK: No masses, no JVD. CHEST: No chest wall deformity. LUNGS: Equal air entry with bilateral wheeze, scattered rhonchi, diminished. CVS: S1 and S2 normal with no audible murmurs, regular rhythm. ABDOMEN: No hepatosplenomegaly, normal bowel sounds, no guarding or rigidity. SPINE: No scoliosis or deformity SKIN: Petechiae rash around both ankles. CENTRAL NERVOUS SYSTEM: No focal deficits, tone is normal in all 4 extremities. Extremities: There is trace peripheral edema. No clubbing, no cyanosis. Peripheral pulses are intact. - Labs CBC & Chem 7: 05/07/17 07:18 05/07/17 07:18 Labs: Abnormal Lab Results - Last 24 Hours (Table) 05/06/17 05/06/17 05/06/17 Range/Units 11:09 11:09 12:15 Plt Count 137 L (150-450) k/uL ESR 35 H (0-20) mm/hr Potassium 3.4 L (3.5-5.1) mmol/L BUN (7-17) mg/dL Glucose 264 H (74-99) mg/dL POC Glucose (mg/dL) 275 H (75-99) mg/dL Creatine Kinase (30-135) U/L C-Reactive Protein (<10.0) mg/L TSH (0.465-4.680) mIU/L 05/06/17 05/06/17 05/06/17 Range/Units 17:20 18:39 18:39 Plt Count (150-450) k/uL ESR 31 H (0-20) mm/hr Potassium (3.5-5.1) mmol/L BUN (7-17) mg/dL Glucose 235 H (74-99) mg/dL POC Glucose (mg/dL) 269 H (75-99) mg/dL Creatine Kinase 250 H (30-135) U/L C-Reactive Protein 44.2 H (<10.0) mg/L TSH 0.348 L (0.465-4.680) mIU/L 05/06/17 05/07/17 05/07/17 Range/Units 20:46 06:52 07:18 Plt Count (150-450) k/uL ESR (0-20) mm/hr Potassium (3.5-5.1) mmol/L BUN 21 H (7-17) mg/dL Glucose 193 H (74-99) mg/dL POC Glucose (mg/dL) 261 H 208 H (75-99) mg/dL Creatine Kinase (30-135) U/L C-Reactive Protein (<10.0) mg/L TSH (0.465-4.680) mIU/L 05/07/17 05/07/17 Range/Units 10:47 11:29 Plt Count (150-450) k/uL ESR (0-20) mm/hr Potassium (3.5-5.1) mmol/L BUN (7-17) mg/dL Glucose (74-99) mg/dL POC Glucose (mg/dL) 259 H 254 H (75-99) mg/dL Creatine Kinase (30-135) U/L C-Reactive Protein (<10.0) mg/L TSH (0.465-4.680) mIU/L Microbiology - Last 24 Hours (Table) 05/05/17 12:55 Blood Culture - Preliminary Blood No Growth after 24 hours Assessment and Plan Plan: Impression: Acute hypoxic respiratory failure secondary to acute asthma exacerbation, community-acquired pneumonia, thromboembolic disease was ruled out based on the CT of the chest. Plan: The patient was seen and evaluated by Dr. Hanna. We will go ahead and transfer the patient to the intensive care unit for closer observation. We'll also place her on BiPAP 12/5 and titrate the FiO2 to maintain O2 saturations greater than 92%. She remains on IV Solu-Medrol 60 mg every 6 hours, bronchodilators 4 times a day and when necessary, Pulmicort inhalations, antibiotics in the form of Levaquin and Zosyn. Patient will most likely need a bronchoscopy with BAL and biopsy if there is no significant improvement in the next 24-48 hours. We'll continue to follow closely and make further recommendations based on her clinical status.
[2017-05-07] MEDS: IPRATROPIUM-ALBUTEROL 3 ML NEB INHALATION SCH ×3 (11:54→20:36)
--- NOTE | 2017-05-07 13:07 | HP ---
DATE OF SERVICE: 05/05/2017 CHIEF COMPLAINTS: Shortness of breath and as well as fever. HISTORY OF PRESENT ILLNESS: This 36-year-old woman with past medical history of asthma, GERD, history of ADD, ADHD, anxiety, bipolar, multiple other medical issues is being followed by Dr. Cowan in the outpatient setting complaining of shortness of breath and fever. The patient was found to have some crackles and hence, right side pneumonia was suspected. Patient admitted for further evaluation and treatment. There are also skin lesions over the legs and the patient apparently spent some time at friend's house where there are bedbugs. No chest pains, no palpitations, no headache, loss of consciousness or seizures. No hematochezia or melena. PAST MEDICAL HISTORY: Asthma, GERD, myocardial infarction, anxiety, bipolar, depression. HOME MEDICATIONS: 1. Lambda 300 mg q.h.s. 2. Verapamil ER 180 mg. 3. Seroquel 100 mg q.h.s. 4. Phenergan p.r.n. 5. Lyrica 200 mg b.i.d. 6. Prilosec . 7. Remeron 45 mg q.h.s. 8. Lopressor 25 mg q.h.s. 9. [place] 7.5 t.i.d. p.r.n. 10. Celexa 40 mg p.o. daily. 11. Tessalon 100 mg p.o. t.i.d. 12. Zovirax 800 mg p.o. q.h.s. ALLERGIES: ZITHROMAX, MAGNESIUM, ACETAMINOPHEN, CODEINE, PREDNISONE. FAMILY HISTORY: History of myocardial infarction. SOCIAL HISTORY: History of smoking, history of occasional alcohol intake. REVIEW OF SYSTEMS: ENT: No diminished hearing or vision. CARDIOVASCULAR: No angina. RESPIRATORY: No cough. GI: No nausea. : No dysuria. NERVOUS SYSTEM: No numbness or weakness. ALLERGY/IMMUNOLOGY: Asthma. MUSCULOSKELETAL: As mentioned. HEMATOLOGY: No history of anemia. ENDOCRINE: No history of diabetes or hypothyroidism. CONSTITUTIONAL: As mentioned. DERMATOLOGY: Negative. RHEUMATOLOGY: Negative. PSYCHIATRY: As mentioned earlier. PHYSICAL EXAMINATION: The patient is alert, oriented x3. Pulse 108, blood pressure 126/64, respirations 22, temperature 99 degrees, pulse ox 93% on 5-L. HEENT: Conjunctivae normal. Oral mucosa moist. NECK: No jugular venous distention. No carotid bruit. No lymph node enlargement. CARDIOVASCULAR: S1, S2. No S3, S4. RESPIRATORY: Breath sounds diminished in the bases. A few scattered rhonchi and crackles. ABDOMEN: Soft, nontender. No mass palpable. Obese. LEGS: Bilateral leg edema. NERVOUS SYSTEM: Higher function as mentioned. Moves all four limbs. No focal motor deficits. LYMPHATIC: No lymph nodes palpable in the neck, groin or axillae. SKIN: Multiple petechial lesions on both extremities in the feet, gluteal area and also present. Extravasation of IV dye on the left forearm. JOINTS: No active deforming arthropathy. LABS: WBC 2.9, platelets 110, potassium 3.4. ASSESSMENT: 1. Possible acute asthma exacerbation with acute right-sided pneumonia possibly gram-negative. 2. 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 3. Mild leukopenia. 4. Mild thrombocytopenia. 5. Mild hypokalemia. 6. Increased AST, ALT. 7. History of gastroesophageal reflux disease. 8. History of back pain. 9. History of attention deficit disorder, attention deficit hyperactivity disorder. 10. History of cholecystectomy. 11. History of anxiety, bipolar depression. 12. Obesity, body mass index 45. 13. FULL CODE. RECOMMENDATIONS AND DISCUSSION: In this 36-year-old woman who presented with multiple complex medical issues, will monitor the patient closely. Continue the current medications. Continue the symptomatic treatment. Otherwise at this time I recommend bronchodilators and empiric antibiotics. Pulmonary consultation. steroids have been initiated. I would also recommend a rheumatology consultation also. Prognosis guarded because of multiple complex medical issues. Further recommendations to follow. See orders for details. MTDD
[2017-05-07] MEDS: PIPERACILLIN-TAZOBACTAM 3.375 GM in DEXTROSE/WATER 1 50ML.BAG IVPB SCH ×2 (14:25→22:10)
[2017-05-07 17:22] LABS: Glucose,Whole Blood 216 mg/dL (75-99)
[2017-05-07] MEDS: LEVOFLOXACIN 750 MG TAB PO SCH (17:23)
[2017-05-07 19:57] LABS: Glucose,Whole Blood 232 mg/dL (75-99)
[2017-05-07] MEDS: ACYCLOVIR 800 MG TAB PO SCH (20:00)
[2017-05-07] MEDS: MIRTAZAPINE 45 MG TABLET PO SCH (20:00)
[2017-05-07] MEDS: QUEtiapine 100 MG TAB PO SCH (20:00)
[2017-05-07] MEDS: METOPROLOL TARTRATE 25 MG TAB PO SCH (20:01)
[2017-05-07] MEDS: lamoTRIgine 100 MG TAB PO SCH (20:01)
[2017-05-07] MEDS: PANTOPRAZOLE 40 MG TABLET PO SCH (20:01)
[2017-05-07] MEDS: VERAPAMIL SR 180 MG TABLET.ER PO SCH (20:01)
[2017-05-07] MEDS: BUDESONIDE 1 MG/2 ML NEBU INHALATION SCH (20:36)
[2017-05-07 23:55] LABS: Glucose,Whole Blood 139 mg/dL (75-99)
[2017-05-07] MEDS: SODIUM CHLORIDE 0.9% 1,000 ML IV SCH (23:57)
[2017-05-08 05:36] LABS: Aty Lym Flag Slight; Basophils # (A) 0.1 k/uL (0-0.2); Basophils % (A) 1 %; CH 32.3; CHCM 34.9; Eosinophils % (A) 0 %; HCT 36.4 % (34.0-46.0); HDW 2.99; HGB 13.2 gm/dL (11.4-16.0); Luc # (Auto) 0.67; Luc % (Auto) 7; Lymphocytes # (A) 1.9 k/uL (1.0-4.8); Lymphocytes % (A) 19 %; MCH 33.6 pg (25.0-35.0); MCHC 36.2 g/dL (31.0-37.0); MCV 92.8 fL (80.0-100.0); Mean Platelet Volume 8.3; Monocytes # (A) 0.5 k/uL (0-1.0); Monocytes % (A) 5 %; Neutrophils # (A) 6.7 k/uL (1.3-7.7); Neutrophils % (A) 68 %; RBC 3.92 m/uL (3.80-5.40); RDW 14.3 % (11.5-15.5); WBC 9.9 k/uL (3.8-10.6); WBC (Perox) 9.67
[2017-05-08 05:47] LABS: Anion Gap 10 mmol/L; Blood Urea Nitrogen 32 mg/dL (7-17); Calcium 9.4 mg/dL (8.4-10.2); Carbon Dioxide 29 mmol/L (22-30); Chloride 103 mmol/L (98-107); Glucose 146 mg/dL (74-99); Non-African American GFR(MDRD) >60 (>60 ml/min/1.73 sqM); Potassium 3.7 mmol/L (3.5-5.1); Sodium 142 mmol/L (137-145)
[2017-05-08] MEDS: INSULIN LISPRO (humaLOG) 300 UNIT/3 ML VIAL SQ SCH ×2 (05:49→12:13)
[2017-05-08] MEDS: methylPREDNISolone SOD SUCCI 125 MG/2 ML VIAL IV SCH ×3 (05:50→18:41)
[2017-05-08 05:51] LABS: Glucose,Whole Blood 175 mg/dL (75-99)
[2017-05-08] MEDS ORDERED: Potassium Replacement Protocol 1 EACH MISC MISCELLANE PRN (05:59)
[2017-05-08] MEDS: PIPERACILLIN-TAZOBACTAM 3.375 GM in DEXTROSE/WATER 1 50ML.BAG IVPB SCH ×3 (06:07→22:24)
--- NOTE | 2017-05-08 07:11 | XR ---
EXAMINATION TYPE: XR chest 1V portable DATE OF EXAM: 05/08/2017 Comparison: 05/07/2017 Clinical History: 36-year-old female follow-up pneumonia Findings: Heart is normal size. Aorta and pulmonary vasculature within normal limits. Subtle interstitial infil trate suggested in the lower lungs with more patchy opacity at the cardiac apex, similar to prior. Impression: Overall similar residual infiltrate at the left base and subtle interstitial changes in the lower corie gs.
[2017-05-08] MEDS ORDERED: POTASSIUM CHLORIDE ER 20 MEQ TAB.ER PO SCH (07:30)
[2017-05-08] MEDS: HYDROcodone/APAP 7.5-325MG 1 EACH TAB PO PRN ×2 (07:52→16:26)
[2017-05-08] MEDS: IPRATROPIUM-ALBUTEROL 3 ML NEB INHALATION SCH ×4 (08:15→19:57)
[2017-05-08] MEDS: BUDESONIDE 1 MG/2 ML NEBU INHALATION SCH ×2 (08:15→19:55)
[2017-05-08] MEDS: FUROSEMIDE 10 MG/ML 2 ML VIAL IV SCH ×2 (08:41→20:23)
[2017-05-08] MEDS: PREGABALIN 100 MG CAP PO SCH ×2 (08:42→20:32)
[2017-05-08] MEDS: CITALOPRAM HYDROBROMIDE 20 MG TAB PO SCH (08:42)
[2017-05-08] MEDS: LIDOCAINE 2% GEL 30 ML TUBE TOPICAL SCH ×2 (08:42→20:24)
[2017-05-08] MEDS: ENOXAPARIN 40 MG/0.4 ML SYRINGE SQ SCH (08:42)
--- NOTE | 2017-05-08 08:42 | P.PN ---
Subjective Principal diagnosis: Acute bilateral pneumonia, community-acquired. This is a 36-year-old female with history of multiple medical problems including asthma, GERD, degenerative joint disease, depression, ADHD, migraine cephalgia, diverticular disease, and history of myocardial infarction. Patient presented to the ER a few days ago with mostly symptoms of cough and fever, cough was described as nonproductive. Patient was also complaining of intermittent headaches, no chest pain, no hemoptysis, no nausea, no vomiting. She did have occasional wheezing. Chest x-ray was described as normal, hence the patient was discharged home on cough suppressants, and advised to follow-up with her primary care physician. However over the last few days, her symptoms have been getting worse including increased shortness of breath, more dry hacking cough, more wheezing, and definitely more shortness of breath and more fever. Repeat chest x-ray on this evaluation showed a patchy density in the right medial base and there was evidence of prominent interstitium. Hence the patient was admitted. Upon my evaluation, I noted that the patient was having more symptoms than could be explained on the chest x-ray findings, hence I recommended that we continue antibiotics, and a stat CT of the chest was ordered. Patient's O2 saturation was only 92% on 5 L nasal cannula. On physical examination, she had more physical findings of the left base than the right base. Possibility of thromboembolic disease is being considered, and also the possibility of congestive heart failure is actually in the differential. Clearly the patient has prominent interstitium on the chest x-ray , and crackles at the bases more so at the left base. T-max on admission was 100. Patient had leukopenia with WBC count of 2.9, platelets were noted to be a bit low at 1 10,000, differential was relatively unremarkable. Recent metabolic profile was noted to be normal, lactic acid was normal on admission. Liver enzymes were noted to be borderline elevated including elevated AST and ALT. Patient was reevaluated today on 05/06/2017, seems to be doing a little bit better , CT of the chest showed no evidence of pulmonary embolism, but definitely showed more than what was initially reported on the chest x-ray, there is significant bilateral air space disease and nodular infiltrates. Hence I have recommended that she remains on the same antibiotics, bronchodilators, diuretics , I have also recommended screening for Legionella and for possible Oral's granulomatosis, since the patient has chronic history of microscopic hematuria. Over the last 24 hours, there has been definite slight improvement. I explained to the patient that if she does not improve much over the next couple of days, she will definitely need bronchoscopy and possible lung biopsy. The patient is seen again today 05/07/2017 in follow-up on the regular medical floor. She is awake and alert. She is actually working harder to breathe today as compared to yesterday. Approximate 4:00 this morning she required quested a breathing treatment. She had a second one as well without much improvement. She is audibly wheezing and dyspneic on conversation. She has a loose nonproductive cough. She is requiring increased FiO2 requirements and currently on 7 L high flow nasal cannula to maintain O2 saturations in the low 90s. Her chest x-ray is about the same, no significant improvement in the past 24 hours. Reevaluated today on 05/08/2017, patient was transferred to the ICU yesterday after she was seen on rounds. Patient required BiPAP at night, he was kept on antibiotics in the form of Levaquin and Zosyn, she was also kept on diuretics in the form of Lasix 20 mg IV push every 12 hours. Yesterday she was on relatively high FiO2, and she was requiring BiPAP mostly overnight. This morning, the patient seems to be a bit more comfortable, she is on 6 L nasal cannula with saturations in the low 90s, breathing easier, continues to have shortness of breath with any activity. Some cough which is productive with yellow phlegm. No fever no chills no hemoptysis no chest pain. Labs were reviewed she had a relatively normal CBC. Normal basic metabolic profile. Cultures remain negative. Objective - Vital Signs Vital signs: Vital Signs Temp 98.3 F 05/08/17 04:00 Pulse 70 05/08/17 08:16 Resp 13 05/08/17 07:00 BP 119/62 05/08/17 07:00 Pulse Ox 92 L 05/08/17 07:00 Intake & Output 05/07/17 05/08/17 05/08/17 18:59 06:59 18:59 Intake Total 172.5 170.0 12.5 Output Total 600 600 Balance -427.5 -430.0 12.5 Weight 144.8 kg Intake: IV 160 170.0 12.5 Normal Saline 160 120 Piperacillin-Tazobactam 3 50.0 12.5 .375 gm In Dextrose/Water 1 50ml.bag @ 12.5 mls/hr IVPB Q8H [facility] Rx#: [id number] Intake, IV Titration 12.5 Amount Piperacillin-Tazobactam 3 12.5 .375 gm In Dextrose/Water 1 50ml.bag @ 12.5 mls/hr IVPB Q8H [facility] Rx#: [id number] Output: Urine 600 600 Other: Voiding Method Toilet Toilet Bedside Commode Bedside Commode # Voids 2 1 - Exam Physical Exam: Revealed a 56-year-old female, obese, noted to be dyspneic with any activity even on 6 L nasal cannula and BiPAP is at bedside. HEENT:[Neck is supple.] [No neck masses.] [No thyromegaly.] [No JVD.] Chest: [Minimal crackles at the left base Cardiac Exam: [Normal S1 and S2, no S3 gallop, no murmur.] Abdomen: [Soft, nontender, no megaly, no rebound, no guarding, normal bowel sounds.] Extremities: [No clubbing, trace of bipedal edema, no cyanosis.] Neurological Exam: [No focal neurologic deficit.] - Labs CBC & Chem 7: 05/08/17 05:13 05/08/17 05:13 Labs: Abnormal Lab Results - Last 24 Hours (Table) 05/07/17 05/07/17 05/07/17 Range/Units 10:47 11:29 17:20 BUN (7-17) mg/dL Glucose (74-99) mg/dL POC Glucose (mg/dL) 259 H 254 H 216 H (75-99) mg/dL 05/07/17 05/07/17 05/08/17 Range/Units 19:55 23:53 05:13 BUN 32 H (7-17) mg/dL Glucose 146 H (74-99) mg/dL POC Glucose (mg/dL) 232 H 139 H (75-99) mg/dL 05/08/17 Range/Units 05:48 BUN (7-17) mg/dL Glucose (74-99) mg/dL POC Glucose (mg/dL) 175 H (75-99) mg/dL Microbiology - Last 24 Hours (Table) 05/05/17 12:55 Blood Culture - Preliminary Blood No Growth after 48 hours Assessment and Plan Plan: Impression: Acute hypoxic respiratory failure secondary to acute asthma exacerbation, and bilateral multifocal infiltrates consistent with community- acquired pneumonia. Recommendation: Continue present course of treatment including antibiotics, bronchodilators, steroids, I ordered urine for Legionella antigen, I also ordered a sed rate, CANCA, and echocardiogram was noted to be relatively normal. Patient is demonstrating slight improvement, we'll continue to monitor in the ICU for the next 24 hours, possibly consider transferring the patient to a regular medical floor in the next 24 hours if she continues to steadily improve. In the meantime the medications will remain about the same. Time with Patient: Less than 30
--- NOTE | 2017-05-08 09:05 | PN ---
DATE OF SERVICE: 05/06/2017 This 36-year-old woman was admitted with bilateral pneumonia as well as acute asthma exacerbation. She also had possible ( ). The patient is being closely monitored. Dr. Hanna is following the patient. The patient has bronchodilators and IV steroids and antibiotics. No chest pain. No palpitations. No fever. Past medical history reviewed. REVIEW OF SYSTEMS: CARDIOVASCULAR SYSTEM: No angina. RESPIRATORY SYSTEM: As mentioned earlier. GI: As mentioned earlier. : No dysuria, retention. NERVOUS SYSTEM: No numbness, weakness. Current medications are reviewed: 1. [place] 7.5. 2. Zovirax 8 mg at bedtime. 3. Pulmicort 0.5 b.i.d. 4. Celexa 40 mg daily. 5. Lovenox. 6. Lasix. 7. Lamictal. 8. Levaquin 750 daily. 9. Solu-Medrol 60 IV q.6. 10. Remeron. 11. Lyrica. 12. Protonix. 13. Seroquel. 14. Isoptin. PHYSICAL EXAMINATION: Patient is alert and oriented x3. Pulse is 78, blood pressure 119/64, respiration 14, temperature 98.4, pulse ox 91% on 5 L. HEENT: Conjunctivae normal. NECK: No jugular venous congestion. CARDIAC: S1, S2 muffled. RESPIRATORY: Breath sounds diminished at the bases. A few scattered rhonchi and crackles. Expiratory wheezing. ABDOMEN: Soft, non-tender. LEGS: No edema. No swelling. NERVOUS SYSTEM: No focal deficit. EXAMINATION OF THE SKIN: Multiple petechial rashes present. ASSESSMENT: 1. Acute bronchial asthma, acute exacerbation, with bilateral pneumonia. 2. Henoch schonlein purpura. 3. Hypokalemia. 4. Mild thrombocytopenia. 5. Mild leukopenia. 6. Multiple medical issues. RECOMMENDATIONS AND DISCUSSION: I recommend to continue current medications, continue symptomatic treatment. Bronchodilators. Antibiotics. Guarded prognosis. Further recommendations to follow. MTDD
[2017-05-08 12:15] LABS: Glucose,Whole Blood 212 mg/dL (75-99)
[2017-05-08] MEDS: LEVOFLOXACIN 750 MG TAB PO SCH (16:23)
[2017-05-08 17:34] LABS: Glucose,Whole Blood 294 mg/dL (75-99)
[2017-05-08] MEDS ORDERED: INSULIN REGULAR BOLUS (FROM DRIP BAG) IV PRN (17:50)
[2017-05-08] MEDS ORDERED: INSULIN REGULAR 100 UNIT in SODIUM CHLORIDE 0.9% 100 ML IV SCH (18:15)
[2017-05-08 19:16] LABS: Glucose,Whole Blood 289 mg/dL (75-99)
[2017-05-08 20:18] LABS: Glucose,Whole Blood 251 mg/dL (75-99)
[2017-05-08] MEDS: METOPROLOL TARTRATE 25 MG TAB PO SCH (20:23)
[2017-05-08] MEDS: ACYCLOVIR 800 MG TAB PO SCH (20:23)
[2017-05-08] MEDS: QUEtiapine 100 MG TAB PO SCH (20:23)
[2017-05-08] MEDS: lamoTRIgine 100 MG TAB PO SCH (20:23)
[2017-05-08] MEDS: PANTOPRAZOLE 40 MG TABLET PO SCH (20:24)
[2017-05-08] MEDS: VERAPAMIL SR 180 MG TABLET.ER PO SCH (20:25)
[2017-05-08] MEDS: MIRTAZAPINE 45 MG TABLET PO SCH (20:33)
[2017-05-08 20:55] LABS: Glucose,Whole Blood 235 mg/dL (75-99)
[2017-05-08 22:24] LABS: Glucose,Whole Blood 184 mg/dL (75-99)
[2017-05-09] MEDS ORDERED: methylPREDNISolone SOD SUCCI 125 MG/2 ML VIAL ONE
[2017-05-09 02:59] LABS: Glucose,Whole Blood 135 mg/dL (75-99)
[2017-05-09 02:59] LABS: Glucose,Whole Blood 156 mg/dL (75-99)
[2017-05-09 02:59] LABS: Complement Total (CH50) 88 U/mL (42 - 95)
[2017-05-09 03:06] LABS: Glucose,Whole Blood 158 mg/dL (75-99)
[2017-05-09 04:29] LABS: Glucose,Whole Blood 148 mg/dL (75-99)
[2017-05-09] MEDS: SODIUM CHLORIDE 0.9% 1,000 ML IV SCH ×2 (04:35→23:37)
[2017-05-09] MEDS: methylPREDNISolone SOD SUCCI 125 MG/2 ML VIAL IV SCH ×5 (04:35→23:25)
[2017-05-09] MEDS: HYDROcodone/APAP 7.5-325MG 1 EACH TAB PO PRN ×3 (04:36→15:28)
[2017-05-09 05:30] LABS: Glucose,Whole Blood 156 mg/dL (75-99)
[2017-05-09] MEDS: PIPERACILLIN-TAZOBACTAM 3.375 GM in DEXTROSE/WATER 1 50ML.BAG IVPB SCH ×3 (05:34→23:22)
[2017-05-09 06:06] LABS: Aty Lym Flag Moderate; Basophils # (A) 0.1 k/uL (0-0.2); Basophils % (A) 1 %; CH 32.4; CHCM 34.5; Eosinophils % (A) 0 %; HCT 36.9 % (34.0-46.0); HDW 2.88; HGB 12.8 gm/dL (11.4-16.0); Luc # (Auto) 0.79; Luc % (Auto) 8; Lymphocytes % (A) 21 %; MCH 32.6 pg (25.0-35.0); MCHC 34.6 g/dL (31.0-37.0); MCV 94.3 fL (80.0-100.0); Mean Platelet Volume 8.2; Monocytes # (A) 0.6 k/uL (0-1.0); Monocytes % (A) 7 %; Neutrophils # (A) 6.2 k/uL (1.3-7.7); Neutrophils % (A) 64 %; RBC 3.91 m/uL (3.80-5.40); RDW 14.2 % (11.5-15.5); WBC 9.7 k/uL (3.8-10.6); WBC (Perox) 9.19
[2017-05-09 06:15] LABS: Anion Gap 9 mmol/L; Blood Urea Nitrogen 37 mg/dL (7-17); Calcium 8.9 mg/dL (8.4-10.2); Carbon Dioxide 32 mmol/L (22-30); Chloride 102 mmol/L (98-107); Glucose 141 mg/dL (74-99); Non-African American GFR(MDRD) >60 (>60 ml/min/1.73 sqM); Potassium 3.6 mmol/L (3.5-5.1); Sodium 143 mmol/L (137-145)
[2017-05-09 06:58] LABS: Glucose,Whole Blood 193 mg/dL (75-99)
[2017-05-09] MEDS ORDERED: POTASSIUM CHLORIDE ER 20 MEQ TAB.ER PO SCH (08:00)
[2017-05-09] MEDS: CITALOPRAM HYDROBROMIDE 20 MG TAB PO SCH (08:02)
[2017-05-09] MEDS: ENOXAPARIN 40 MG/0.4 ML SYRINGE SQ SCH (08:02)
[2017-05-09] MEDS: FUROSEMIDE 10 MG/ML 2 ML VIAL IV SCH ×2 (08:03→20:45)
[2017-05-09] MEDS: LIDOCAINE 2% GEL 30 ML TUBE TOPICAL SCH ×2 (08:03→20:47)
[2017-05-09] MEDS: PREGABALIN 100 MG CAP PO SCH ×2 (08:04→20:44)
[2017-05-09] MEDS: BUDESONIDE 1 MG/2 ML NEBU INHALATION SCH ×2 (09:17→20:20)
[2017-05-09] MEDS: IPRATROPIUM-ALBUTEROL 3 ML NEB INHALATION SCH ×4 (09:17→20:20)
--- NOTE | 2017-05-09 09:27 | XR ---
EXAMINATION TYPE: XR chest 1V portable DATE OF EXAM: 05/09/2017 Comparison: 05/08/2017 Clinical History: 36-year-old female with pneumonia Findings: The cardiomediastinal silhouette, aorta, and pulmonary vasculature are within normal limits. Contin ued decreasing infiltrate at the left base. Minimal interstitial changes at both lower lungs persist. No pleural effusion. Impression: Airspace disease at the left base continues to decrease. Mild interstitial infiltrates in the lower l ungs are relatively similar.
[2017-05-09 10:05] LABS: Glucose,Whole Blood 214 mg/dL (75-99)
--- NOTE | 2017-05-09 10:25 | PN ---
DATE OF SERVICE: 05/07/2017 This 36-year-old woman who was admitted with acute hypoxic respiratory failure secondary to acute asthma exacerbation, also had possible community-acquired pneumonia. The patient was in acute respiratory failure. Because of significant difficulties in breathing, the patient was transferred to ICU. The patient is on BiPAP at this time. BiPAP settings are noted. The patient also suspected to have vasculitic lesions also. No chest pain, no palpitations, no fever. PAST MEDICAL HISTORY: Reviewed. REVIEW OF SYSTEMS: CARDIOVASCULAR: No angina. RESPIRATORY: As mentioned earlier. GI: No nausea. : No dysuria. NERVOUS SYSTEM: No numbness or weakness. Current medications are reviewed and include: 1. [place] 7.5 t.i.d. p.r.n. 2. Zovirax 80 mg q.h.s. 3. DuoNeb q.i.d. and p.r.n. 4. Pulmicort. 5. Celexa. 6. Lovenox. 7. Lasix. 8. Lamictal. 9. Levaquin. 10. Solu-Medrol. 11. Lopressor. 12. Remeron. 13. Protonix. 14. Isoptin SR. PHYSICAL EXAMINATION: Patient is alert and oriented x2. Pulse 77, blood pressure 130/69, respirations 18, temperature 97.3, pulse ox 94%. HEENT: Conjunctivae normal. NECK: No jugular venous distention. CARDIOVASCULAR: S1, S2. RESPIRATORY: Breath sounds diminished in the bases. Bilateral scattered rhonchi. Expiratory wheeze also present. ABDOMEN: Soft, obese, nontender. LEGS: No edema, no swelling. NERVOUS SYSTEM: No focal deficits. SKIN: Skin rash present. Labs at this time shows CBC within normal limits. Accu-Cheks are noted. ASSESSMENT: 1. Acute bronchial asthma acute exacerbation with possibly community-acquired pneumonia bilateral. 2. Vasculitis and possibly Henoch-Schnlein purpura. 3. Obesity with body mass index of 44.2. 4. Gastroesophageal reflux disease. 5. History of asthma. 6. History of degenerative joint disease. 7. Anxiety, bipolar depression. RECOMMENDATIONS AND DISCUSSION: I recommend to continue the current medications , continue monitoring and continue symptomatic treatment. Otherwise closely follow. Guarded prognosis because of multiple complex medical issues. Further recommendations to follow. MTDD
[2017-05-09] MEDS ORDERED: INSULIN REGULAR BOLUS (FROM DRIP BAG) IV ONE (11:06)
--- NOTE | 2017-05-09 11:37 | P.PN ---
Subjective Principal diagnosis: Acute bilateral multilobar pneumonia, community-acquired. This is a 36-year-old female with history of multiple medical problems including asthma, GERD, degenerative joint disease, depression, ADHD, migraine cephalgia, diverticular disease, and history of myocardial infarction. Patient presented to the ER a few days ago with mostly symptoms of cough and fever, cough was described as nonproductive. Patient was also complaining of intermittent headaches, no chest pain, no hemoptysis, no nausea, no vomiting. She did have occasional wheezing. Chest x-ray was described as normal, hence the patient was discharged home on cough suppressants, and advised to follow-up with her primary care physician. However over the last few days, her symptoms have been getting worse including increased shortness of breath, more dry hacking cough, more wheezing, and definitely more shortness of breath and more fever. Repeat chest x-ray on this evaluation showed a patchy density in the right medial base and there was evidence of prominent interstitium. Hence the patient was admitted. Upon my evaluation, I noted that the patient was having more symptoms than could be explained on the chest x-ray findings, hence I recommended that we continue antibiotics, and a stat CT of the chest was ordered. Patient's O2 saturation was only 92% on 5 L nasal cannula. On physical examination, she had more physical findings of the left base than the right base. Possibility of thromboembolic disease is being considered, and also the possibility of congestive heart failure is actually in the differential. Clearly the patient has prominent interstitium on the chest x-ray , and crackles at the bases more so at the left base. T-max on admission was 100. Patient had leukopenia with WBC count of 2.9, platelets were noted to be a bit low at 1 10,000, differential was relatively unremarkable. Recent metabolic profile was noted to be normal, lactic acid was normal on admission. Liver enzymes were noted to be borderline elevated including elevated AST and ALT. Patient was reevaluated today on 05/06/2017, seems to be doing a little bit better , CT of the chest showed no evidence of pulmonary embolism, but definitely showed more than what was initially reported on the chest x-ray, there is significant bilateral air space disease and nodular infiltrates. Hence I have recommended that she remains on the same antibiotics, bronchodilators, diuretics , I have also recommended screening for Legionella and for possible Oral's granulomatosis, since the patient has chronic history of microscopic hematuria. Over the last 24 hours, there has been definite slight improvement. I explained to the patient that if she does not improve much over the next couple of days, she will definitely need bronchoscopy and possible lung biopsy. The patient is seen again today 05/07/2017 in follow-up on the regular medical floor. She is awake and alert. She is actually working harder to breathe today as compared to yesterday. Approximate 4:00 this morning she required quested a breathing treatment. She had a second one as well without much improvement. She is audibly wheezing and dyspneic on conversation. She has a loose nonproductive cough. She is requiring increased FiO2 requirements and currently on 7 L high flow nasal cannula to maintain O2 saturations in the low 90s. Her chest x-ray is about the same, no significant improvement in the past 24 hours. Reevaluated today on 05/08/2017, patient was transferred to the ICU yesterday after she was seen on rounds. Patient required BiPAP at night, he was kept on antibiotics in the form of Levaquin and Zosyn, she was also kept on diuretics in the form of Lasix 20 mg IV push every 12 hours. Yesterday she was on relatively high FiO2, and she was requiring BiPAP mostly overnight. This morning, the patient seems to be a bit more comfortable, she is on 6 L nasal cannula with saturations in the low 90s, breathing easier, continues to have shortness of breath with any activity. Some cough which is productive with yellow phlegm. No fever no chills no hemoptysis no chest pain. Labs were reviewed she had a relatively normal CBC. Normal basic metabolic profile. Cultures remain negative. The patient was seen again today 05/09/2017 in follow-up in the intensive care unit. She is currently sitting up in the chair at the bedside. She is awake and alert in no acute distress. Her chest x-ray does reveal significant improvement status post diuresis. Will most likely picture of fluid volume overload versus pneumonia. He does have a productive cough in the sputum culture is pending. No leukocytosis. She remains afebrile. She is maintaining O2 saturations in the low 90s on 6 L/m per nasal cannula. Hemodynamically stable. He remains on Zosyn and Levaquin along with IV Solu- Medrol and bronchodilators. He does require insulin drip currently at 6 units per hour. Objective - Vital Signs Vital signs: Vital Signs Temp 98.4 F 05/09/17 08:00 Pulse 74 05/09/17 10:00 Resp 11 L 05/09/17 10:00 BP 114/58 05/09/17 10:00 Pulse Ox 86 L 05/09/17 10:00 Intake & Output 05/08/17 05/09/17 05/09/17 18:59 06:59 18:59 Intake Total 210.0 319.689 446.515 Output Total 1165 1040 530 Balance -955.0 -720.311 -83.485 Weight 143.8 kg 143.8 kg Intake: IV 210.0 240 80 Normal Saline 160 240 80 Piperacillin-Tazobactam 3 50.0 .375 gm In Dextrose/Water 1 50ml.bag @ 12.5 mls/hr IVPB Q8H [facility] Rx#: [id number] Intake, IV Titration 79.689 6.515 Amount Insulin Regular 100 unit 79.689 6.515 In Sodium Chloride 0.9% 100 ml @ Per Protocol IV .Q0M [facility] Rx#:[id number] Oral 360 Output: Urine 1165 1040 530 Other: Voiding Method Indwelling Catheter Indwelling Catheter Indwelling Catheter # Voids 1 - Exam GENERAL EXAM: Alert, dyspneic on conversation and with minimal exertion. HEAD: Normocephalic. EYES: Normal reaction of pupils, equal size. NOSE: Clear with pink turbinates. THROAT: No erythema or exudates. NECK: No masses, no JVD. CHEST: No chest wall deformity. LUNGS: Equal air entry with bilateral wheeze, scattered rhonchi, diminished. CVS: S1 and S2 normal with no audible murmurs, regular rhythm. ABDOMEN: No hepatosplenomegaly, normal bowel sounds, no guarding or rigidity. SPINE: No scoliosis or deformity SKIN: Petechiae rash around both ankles. CENTRAL NERVOUS SYSTEM: No focal deficits, tone is normal in all 4 extremities. Extremities: There is trace peripheral edema. No clubbing, no cyanosis. Peripheral pulses are intact. - Labs CBC & Chem 7: 05/09/17 05:28 05/09/17 05:24 Labs: Abnormal Lab Results - Last 24 Hours (Table) 05/06/17 05/08/17 05/08/17 Range/Units 18:39 12:12 17:32 Carbon Dioxide (22-30) mmol/L BUN (7-17) mg/dL Glucose (74-99) mg/dL POC Glucose (mg/dL) 212 H 294 H (75-99) mg/dL Angiotensin Convert Enz 62 H (8-52) U/L 05/08/17 05/08/17 05/08/17 Range/Units 19:15 20:17 20:53 Carbon Dioxide (22-30) mmol/L BUN (7-17) mg/dL Glucose (74-99) mg/dL POC Glucose (mg/dL) 289 H 251 H 235 H (75-99) mg/dL Angiotensin Convert Enz (8-52) U/L 05/08/17 05/08/17 05/09/17 Range/Units 22:22 23:46 02:20 Carbon Dioxide (22-30) mmol/L BUN (7-17) mg/dL Glucose (74-99) mg/dL POC Glucose (mg/dL) 184 H 135 H 156 H (75-99) mg/dL Angiotensin Convert Enz (8-52) U/L 05/09/17 05/09/17 05/09/17 Range/Units 03:04 04:27 05:24 Carbon Dioxide 32 H (22-30) mmol/L BUN 37 H (7-17) mg/dL Glucose 141 H (74-99) mg/dL POC Glucose (mg/dL) 158 H 148 H (75-99) mg/dL Angiotensin Convert Enz (8-52) U/L 05/09/17 05/09/17 05/09/17 Range/Units 05:28 06:57 10:03 Carbon Dioxide (22-30) mmol/L BUN (7-17) mg/dL Glucose (74-99) mg/dL POC Glucose (mg/dL) 156 H 193 H 214 H (75-99) mg/dL Angiotensin Convert Enz (8-52) U/L Microbiology - Last 24 Hours (Table) 05/05/17 12:55 Blood Culture - Preliminary Blood No Growth after 72 hours Assessment and Plan Plan: Impression: Acute hypoxic respiratory failure secondary to acute asthma exacerbation, community-acquired pneumonia, and fluid volume overload. Thromboembolic disease was ruled out based on the CT of the chest. Plan: The patient was seen and evaluated by Dr. Saez. Her chest x-ray is much improved. No plans for bronchoscopy at this point. We'll continue with diuretics. She is improved today as compared to yesterday and could be transferred out of the intensive care unit. She remains on IV Solu-Medrol 60 mg every 6 hours, bronchodilators 4 times a day and when necessary, Pulmicort inhalations, antibiotics in the form of Levaquin and Zosyn. We'll continue to follow closely and make further recommendations based on her clinical status.
[2017-05-09 11:59] LABS: Glucose,Whole Blood 145 mg/dL (75-99)
[2017-05-09] MEDS: INSULIN REGULAR 100 UNIT in SODIUM CHLORIDE 0.9% 100 ML IV SCH (12:39)
[2017-05-09 12:41] LABS: HLA B27 NEGATIVE; HLA B27 Comment SEEBELOW
[2017-05-09] MEDS: INSULIN LISPRO (humaLOG) 300 UNIT/3 ML VIAL SQ SCH ×2 (13:22→17:47)
[2017-05-09 14:16] LABS: Glucose,Whole Blood 202 mg/dL (75-99)
[2017-05-09 15:46] LABS: C-ANCA <1:20 Titer (<1:20); P-ANCA <1:20 Titer (<1:20)
[2017-05-09 16:08] LABS: Glucose,Whole Blood 158 mg/dL (75-99)
[2017-05-09] MEDS: LEVOFLOXACIN 750 MG TAB PO SCH (16:35)
[2017-05-09 18:55] LABS: Glucose,Whole Blood 188 mg/dL (75-99)
--- NOTE | 2017-05-09 19:57 | PN ---
DATE OF SERVICE: 05/08/2017 This 36-year-old woman, admitted with bilateral pneumonia as well as acute asthma exacerbation, is also being evaluated for possibility of vasculitis. Dr. Hanna is following the patient closely. Patient is on broad-spectrum IV antibiotics. Patient will be transferred to ICU. She is being closely monitored at this time. Patient also had acute hypoxic respiratory failure. No chest pain. No palpitations. No fever. Past medical history reviewed. REVIEW OF SYSTEMS: CARDIOVASCULAR SYSTEM: No angina. RESPIRATORY SYSTEM: As mentioned earlier. GI: As mentioned earlier. : No dysuria, retention. NERVOUS SYSTEM: No numbness, weakness. Current medications are reviewed and include: 1. [place] 7.5 t.i.d. p.r.n. 2. Zovirax 800 mg at bedtime. 3. DuoNeb q.i.d. and p.r.n. 4. Pulmicort 1 mg b.i.d. 5. Celexa 40 mg daily. 6. Lovenox 40 mg subcutaneously daily. 7. Lasix 20 mg IV b.i.d. 8. Lamictal. 9. Levaquin 750 p.o. daily. 10. Xylocaine. 11. Solu-Medrol 60 IV q.6. 12. Remeron 40 mg at bedtime. 13. Protonix 40 mg at bedtime. 14. Zosyn 3.375 IV q.8. 15. Lyrica. 16. Seroquel. 17. Isoptin. PHYSICAL EXAMINATION: Patient is alert and oriented x3. Pulse is 68, blood pressure 120/64, respiration 18, temperature 97.6, pulse ox 96% on 6 L. HEENT: Conjunctivae normal. NECK: No jugular venous congestion. CARDIAC: S1, S2 muffled. RESPIRATORY: Breath sounds diminished at the bases. Bilateral scattered rhonchi and crackles. ABDOMEN: Soft. Non-tender. LEGS: No edema. No swelling. NERVOUS SYSTEM: No focal deficit. LABS: Accu-Cheks 146, 175. CBC noted. ASSESSMENT: 1. Acute bronchial asthma, acute exacerbation, with acute bilateral pneumonia with acute hypoxic respiratory failure. 2. Henoch schonlein purpura. 3. Hypokalemia. 4. Mild thrombocytopenia. 5. Mild leukopenia. 6. Multiple medical issues. RECOMMENDATION AND DISCUSSION: I recommend to continue current medications, continue with symptomatic treatment, continue with IV steroids, continue with bronchodilators, continue with antibiotics. DS DNA is negative. Hepatitis panel is negative. The complement levels are normal. Guarded prognosis. Further recommendations to follow. MTDD
[2017-05-09] MEDS: ACETAMINOPHEN TAB 325 MG TAB PO PRN (20:38)
[2017-05-09] MEDS: lamoTRIgine 100 MG TAB PO SCH (20:40)
[2017-05-09] MEDS: ACYCLOVIR 800 MG TAB PO SCH (20:40)
[2017-05-09] MEDS: METOPROLOL TARTRATE 25 MG TAB PO SCH (20:41)
[2017-05-09] MEDS: MIRTAZAPINE 45 MG TABLET PO SCH (20:41)
[2017-05-09] MEDS: QUEtiapine 100 MG TAB PO SCH (20:42)
[2017-05-09] MEDS: VERAPAMIL SR 180 MG TABLET.ER PO SCH (20:42)
[2017-05-09] MEDS: PANTOPRAZOLE 40 MG TABLET PO SCH (20:42)
[2017-05-09 20:56] LABS: Glucose,Whole Blood 140 mg/dL (75-99)
[2017-05-09 22:58] LABS: Glucose,Whole Blood 146 mg/dL (75-99)
[2017-05-10 01:10] LABS: Glucose,Whole Blood 138 mg/dL (75-99)
[2017-05-10] MEDS: INSULIN REGULAR 100 UNIT in SODIUM CHLORIDE 0.9% 100 ML IV SCH ×3 (03:28→23:51)
[2017-05-10 03:37] LABS: Glucose,Whole Blood 166 mg/dL (75-99)
[2017-05-10 05:35] LABS: Glucose,Whole Blood 151 mg/dL (75-99)
[2017-05-10] MEDS: methylPREDNISolone SOD SUCCI 125 MG/2 ML VIAL IV SCH ×4 (06:31→23:43)
[2017-05-10] MEDS: PIPERACILLIN-TAZOBACTAM 3.375 GM in DEXTROSE/WATER 1 50ML.BAG IVPB SCH ×3 (06:31→22:36)
[2017-05-10] MEDS: INSULIN LISPRO (humaLOG) 300 UNIT/3 ML VIAL SQ SCH ×4 (07:12→17:16)
[2017-05-10 07:14] LABS: Anion Gap 9 mmol/L; Blood Urea Nitrogen 35 mg/dL (7-17); Calcium 8.5 mg/dL (8.4-10.2); Carbon Dioxide 33 mmol/L (22-30); Chloride 100 mmol/L (98-107); Glucose 129 mg/dL (74-99); Non-African American GFR(MDRD) >60 (>60 ml/min/1.73 sqM); Potassium 3.6 mmol/L (3.5-5.1); Sodium 142 mmol/L (137-145)
[2017-05-10 07:23] LABS: CH 31.7; CHCM 34.4; HCT 37.3 % (34.0-46.0); HDW 2.87; HGB 13.2 gm/dL (11.4-16.0); Immature Gran Flag Slight; MCH 32.9 pg (25.0-35.0); MCHC 35.4 g/dL (31.0-37.0); MCV 92.8 fL (80.0-100.0); Mean Platelet Volume 8.6; RBC 4.02 m/uL (3.80-5.40); WBC 9.7 k/uL (3.8-10.6); WBC (Perox) 9.54
[2017-05-10 07:27] LABS: Glucose,Whole Blood 132 mg/dL (75-99)
[2017-05-10 07:47] LABS: Add Differential Manual Differential
[2017-05-10 07:56] LABS: Myelocytes % 0.5 %; Nucleated Red Blood Cells 0 /100 WBC (0-0); Total Cells Counted 200
[2017-05-10] MEDS: PREGABALIN 100 MG CAP PO SCH ×2 (07:59→20:56)
[2017-05-10] MEDS: ENOXAPARIN 40 MG/0.4 ML SYRINGE SQ SCH (07:59)
[2017-05-10] MEDS: FUROSEMIDE 10 MG/ML 2 ML VIAL IV SCH ×2 (07:59→20:44)
[2017-05-10] MEDS: CITALOPRAM HYDROBROMIDE 20 MG TAB PO SCH (07:59)
[2017-05-10] MEDS: IPRATROPIUM-ALBUTEROL 3 ML NEB INHALATION SCH ×5 (08:00→21:14)
[2017-05-10] MEDS: BUDESONIDE 1 MG/2 ML NEBU INHALATION SCH ×2 (08:00→21:14)
[2017-05-10] MEDS: LIDOCAINE 2% GEL 30 ML TUBE TOPICAL SCH ×2 (08:00→20:44)
[2017-05-10 08:04] LABS: Reactive Lymphocytes Present
--- NOTE | 2017-05-10 08:05 | XR ---
EXAMINATION TYPE: XR chest 1V portable DATE OF EXAM: 05/10/2017 CLINICAL HISTORY: Difficulty breathing and pneumonia progress study. TECHNIQUE: Single AP portable upright view of the chest is obtained. COMPARISON: Chest x-ray from one day earlier and older studies FINDINGS: Persistent linear density left lung base could reflect residual linear atelectasis and/or infiltrate. Right lung remains clear. No new focal airspace opacity, pleural effusion, or pneumothora x is seen bilaterally. Mild central vascular congestion remains present. Cardiac silhouette size is w ithin normal limits. Osseous structures are intact. IMPRESSION: Overall stable findings, persistent residual left basilar linear atelectasis and/or inf iltrate and mild central vascular congestion redemonstrated. No new infiltrate is seen.
[2017-05-10 09:10] LABS: Aldolase 7.5 U/L (1.2-7.6)
[2017-05-10 09:27] LABS: Glucose,Whole Blood 174 mg/dL (75-99)
--- NOTE | 2017-05-10 10:13 | PN ---
DATE OF SERVICE: 05/09/2017 This 36 year old woman was admitted with bilateral pneumonia also had acute asthma exacerbation. The patient had acute hypoxic respiratory failure. The patient is on BIPAP. The patient is being monitored closely in the ICU. Currently the patient is on bronchodilators and steroids and IV antibiotics. Past medical history reviewed. REVIEW OF SYSTEMS: CARDIOVASCULAR SYSTEM: No angina or palpitations. RESPIRATORY: As mentioned earlier. GI: No nausea or vomiting. : No dysuria. NERVOUS SYSTEM: No numbness or weakness. Current medications are reviewed and include: 1. Foster 7.5. 2. Zovirax. 3. DuoNeb. 4. Pulmicort. 5. Celexa. 6. Lovenox. 7. Lasix. 8. Lamictal. 9. Levaquin. 11. Solu-Medrol IV. 12. Remeron. 13. Prn medications. 14. Zosyn IV. PHYSICAL EXAMINATION: The patient is awake, alert and oriented times three. Pulse is 74. Blood pressure 140.76. Respirations 16. Temperature 98.2. Pulse ox 95% on 5L. HEENT: Conjunctivae normal. Oral mucosa moist. NECK: No JVD. No carotid bruit. No thyroid enlargement. No lymph node enlargement. CARDIOVASCULAR: S1, S2. RESPIRATORY: Breath sounds diminished at the bases. Bilateral scattered rhonchi and expiratory wheezing and crackles. ABDOMEN: Soft, obese, nontender. No mass palpable. LEGS: No edema. No swelling. NERVOUS SYSTEM: Higher functions as mentioned earlier. Moves all four limbs. No focal motor deficits. LYMPHATICS: No lymph nodes palpable in the neck, axilla or groin. SKIN: No ulcer, rash or bleeding. Labs are CBC within normal limits. BUN 37, glucose 156. ASSESSMENT: 1. Acute bronchial asthma, acute exacerbation, with bilateral pneumonia, possibly gram negative with acute hypoxic respiratory failure. 3. Hyperkalemia. 4. Mild thrombocytopenia. 5. Mild leukopenia. 6. Multiple other medical issues. RECOMMENDATIONS AND DISCUSSION: Recommend to continue current medications. Continue with monitoring, symptomatic treatment. Otherwise at this time, I recommend continue IV steroids. Continue bronchodilators. Continue antibiotics. Guarded prognosis because of multiple complex medical issues. Further recommendations to follow. MTDD
[2017-05-10 11:30] LABS: Glucose,Whole Blood 168 mg/dL (75-99)
[2017-05-10] MEDS: HYDROcodone/APAP 7.5-325MG 1 EACH TAB PO PRN ×2 (11:52→20:50)
[2017-05-10 14:43] LABS: Glucose,Whole Blood 268 mg/dL (75-99)
[2017-05-10] MEDS: LEVOFLOXACIN 750 MG TAB PO SCH (14:59)
--- NOTE | 2017-05-10 16:46 | PN ---
This patient is a 36-year-old female who was in the ICU for a number of days with acute asthma exacerbation complicated by acute community-acquired pneumonia and volume overload. The patient is doing much better. She was moved out of the ICU yesterday and moved from the sixth floor down to the fourth floor. Her respiratory status has improved dramatically as on her chest x-ray. She denies any chest tightness, chest congestion, coughing, wheezing, shortness of breath or phlegm production. No hemoptysis. No fever. No chills. No nausea, vomiting or diarrhea. Current vital signs are reviewed. Temperature was 97, heart rate 68, respiratory rate 16, blood pressure is 123/62, mean 82. Four-liter saturation is 94%. Appears in no acute distress. HEENT examination is grossly unremarkable. Mucous membranes are moist. No oral lesions. NECK: Supple. Full range of motion. No adenopathy, thyromegaly. Neck veins are flat. Cardiovascular examination reveals regular rhythm and rate. Heart rate is 68. S1 , S2 normal. No S3, S4 or murmur. Lungs reveal mostly clear breath sounds. A few scattered rhonchi. No wheezes or crackles. ABDOMEN: Soft. Bowel sounds are heard. No masses or tenderness. Extremities are intact. No cyanosis, clubbing or edema. SKIN: Without rash. ASSESSMENT: Hypoxemic respiratory failure secondary to asthma exacerbation complicated by community-acquired pneumonia and fluid overload, much improved. The patient is currently clinically very stable. PLAN: The patient has been transferred down to the fourth floor. Will continue to follow. Prognosis is good. No additional recommendations are made. MTDD
[2017-05-10 17:13] LABS: Glucose,Whole Blood 229 mg/dL (75-99)
[2017-05-10 18:34] LABS: Glucose,Whole Blood 177 mg/dL (75-99)
[2017-05-10] MEDS: PANTOPRAZOLE 40 MG TABLET PO SCH (20:42)
[2017-05-10] MEDS: QUEtiapine 100 MG TAB PO SCH (20:42)
[2017-05-10] MEDS: VERAPAMIL SR 180 MG TABLET.ER PO SCH (20:43)
[2017-05-10] MEDS: lamoTRIgine 100 MG TAB PO SCH (20:43)
[2017-05-10] MEDS: MIRTAZAPINE 45 MG TABLET PO SCH (20:43)
[2017-05-10] MEDS: ACYCLOVIR 800 MG TAB PO SCH (20:43)
[2017-05-10] MEDS: METOPROLOL TARTRATE 25 MG TAB PO SCH (20:43)
[2017-05-10 20:46] LABS: Glucose,Whole Blood 197 mg/dL (75-99)
[2017-05-10 22:34] LABS: Glucose,Whole Blood 168 mg/dL (75-99)
[2017-05-10] MEDS: SODIUM CHLORIDE 0.9% 1,000 ML IV SCH (23:44)
[2017-05-11 00:46] LABS: Glucose,Whole Blood 148 mg/dL (75-99)
[2017-05-11 02:38] LABS: Glucose,Whole Blood 158 mg/dL (75-99)
[2017-05-11 04:25] LABS: Glucose,Whole Blood 138 mg/dL (75-99)
[2017-05-11] MEDS: PIPERACILLIN-TAZOBACTAM 3.375 GM in DEXTROSE/WATER 1 50ML.BAG IVPB SCH ×3 (06:33→21:08)
[2017-05-11] MEDS: methylPREDNISolone SOD SUCCI 125 MG/2 ML VIAL IV SCH ×4 (06:34→23:06)
[2017-05-11 06:45] LABS: Glucose,Whole Blood 163 mg/dL (75-99)
[2017-05-11] MEDS: LIDOCAINE 2% GEL 30 ML TUBE TOPICAL SCH ×2 (07:28→21:07)
[2017-05-11] MEDS: ENOXAPARIN 40 MG/0.4 ML SYRINGE SQ SCH (07:28)
[2017-05-11] MEDS: INSULIN LISPRO (humaLOG) 300 UNIT/3 ML VIAL SQ SCH ×3 (07:28→17:18)
[2017-05-11] MEDS: CITALOPRAM HYDROBROMIDE 20 MG TAB PO SCH (07:28)
[2017-05-11] MEDS: FUROSEMIDE 10 MG/ML 2 ML VIAL IV SCH ×2 (07:29→21:06)
[2017-05-11] MEDS: HYDROcodone/APAP 7.5-325MG 1 EACH TAB PO PRN ×3 (07:32→22:50)
[2017-05-11] MEDS: PREGABALIN 100 MG CAP PO SCH ×2 (07:32→21:08)
--- NOTE | 2017-05-11 07:38 | XR ---
EXAMINATION TYPE: XR chest 1V portable DATE OF EXAM: 05/11/2017 Comparison: 05/10/2017 Clinical History: 36-year-old female with pneumonia Findings: Heart is normal size. Aorta within normal limits. Some strandy left basilar opacity remains with poss ible slight increased perihilar and diffuse interstitial densities. No significant pleural effusion. Impression: 1. Perihilar and interstitial densities appear slightly increased; correlate for slight worsening vas cular congestion. 2. Similar patchy atelectasis/infiltrate at the left base.
[2017-05-11] MEDS: BUDESONIDE 1 MG/2 ML NEBU INHALATION SCH ×2 (08:47→19:22)
[2017-05-11] MEDS: IPRATROPIUM-ALBUTEROL 3 ML NEB INHALATION SCH ×4 (08:47→19:22)
[2017-05-11 08:57] LABS: Basophils % (A) 0 %; CH 31.8; CHCM 33.8; Eosinophils % (A) 0 %; HCT 41.8 % (34.0-46.0); HDW 2.78; HGB 14.4 gm/dL (11.4-16.0); Immature Gran Flag Slight; Luc # (Auto) 0.14; Luc % (Auto) 1; Lymphocytes # (A) 1.7 k/uL (1.0-4.8); Lymphocytes % (A) 16 %; MCH 32.6 pg (25.0-35.0); MCHC 34.4 g/dL (31.0-37.0); MCV 94.6 fL (80.0-100.0); Mean Platelet Volume 8.2; Monocytes # (A) 0.4 k/uL (0-1.0); Monocytes % (A) 4 %; Neutrophils # (A) 8.4 k/uL (1.3-7.7); Neutrophils % (A) 78 %; RBC 4.42 m/uL (3.80-5.40); WBC 10.7 k/uL (3.8-10.6); WBC (Perox) 11.14
[2017-05-11 09:01] LABS: Anion Gap 12 mmol/L; Blood Urea Nitrogen 34 mg/dL (7-17); Calcium 8.5 mg/dL (8.4-10.2); Carbon Dioxide 32 mmol/L (22-30); Chloride 98 mmol/L (98-107); Glucose 193 mg/dL (74-99); Non-African American GFR(MDRD) >60 (>60 ml/min/1.73 sqM); Potassium 3.3 mmol/L (3.5-5.1); Sodium 142 mmol/L (137-145)
[2017-05-11 09:03] LABS: Glucose,Whole Blood 231 mg/dL (75-99)
--- NOTE | 2017-05-11 10:15 | PN ---
DATE OF SERVICE: 05/10/17 This 36year old woman was admitted with ( ) acute exacerbation as well as possible bilateral bronchial pneumonia, also had acute hypoxic respiratory failure. The patient is also being evaluated for vasculitis. a Seen and evaluated the patient along with the nurse practitioner. Please refer to the nurse practitioner notes and impression documented as a scribe for further information. Prognosis guarded. MTDD
[2017-05-11 10:31] LABS: Manual Review Performed; Toxic Granulation Present
[2017-05-11 10:32] LABS: RBC Morphology Normal
--- NOTE | 2017-05-11 10:43 | P.PN ---
Subjective Progress note dated 05/11/2017 36-year-old female in the ICU for a number days with acute asthma exacerbation [place] by community acquired pneumonia and volume overload. I believe the pneumonia is pre-much resolved. Her most recent chest x-ray shows mostly fluid overload. The patient is doing much better. Was moved out of the ICU a couple days back. Still very much improved from when she first came in. Still short of breath a bit. This is especially so when she gets up and uses bathroom. Not coughing so much. Not producing any phlegm. No fever no chills. No nausea vomiting or diarrhea. No chest pain or chest discomfort. Objective - Vital Signs Vital signs: Vital Signs Temp 97.0 F L 05/11/17 07:00 Pulse 80 05/11/17 09:05 Resp 18 05/11/17 07:00 BP 131/83 05/11/17 07:00 Pulse Ox 95 05/11/17 07:00 Intake & Output 05/10/17 05/11/17 05/11/17 18:59 06:59 18:59 Intake Total 174.902 55.251 9.675 Output Total 200 Balance 174.902 -144.749 9.675 Intake: Intake, IV Titration 54.902 55.251 9.675 Amount Insulin Regular 100 unit 54.902 55.251 9.675 In Sodium Chloride 0.9% 100 ml @ Titrate IV .Q0M [facility] Rx#:[id number] Oral 120 Output: Urine 200 Other: Voiding Method Toilet Toilet # Voids 1 2 # Bowel Movements 0 - Exam No acute distress, oriented 3. HEENT Exam is unremarkable. Mucous membranes are moist. No oral lesions. Neck supple. Full range of motion. No adenopathy thyromegaly or neck vein distention. Cardiovascular examination reveals regular rhythm rate. S1-S2 normal. Heart rate mid 70s. No murmur. No S3 or S4. Lungs reveal some bibasilar crackles. Breath sounds are equal. No wheezes or rhonchi. Abdomen soft bowel sounds are heard. Extremities are intact. No cyanosis or clubbing. Trace edema. Skin without rash. - Labs CBC & Chem 7: 05/11/17 08:18 05/11/17 08:18 Labs: Abnormal Lab Results - Last 24 Hours (Table) 05/10/17 05/10/17 05/10/17 Range/Units 11:19 14:39 17:01 WBC (3.8-10.6) k/uL Neutrophils # (1.3-7.7) k/uL Potassium (3.5-5.1) mmol/L Carbon Dioxide (22-30) mmol/L BUN (7-17) mg/dL Glucose (74-99) mg/dL POC Glucose (mg/dL) 168 H 268 H 229 H (75-99) mg/dL 05/10/17 05/10/17 05/10/17 Range/Units 18:31 20:37 22:31 WBC (3.8-10.6) k/uL Neutrophils # (1.3-7.7) k/uL Potassium (3.5-5.1) mmol/L Carbon Dioxide (22-30) mmol/L BUN (7-17) mg/dL Glucose (74-99) mg/dL POC Glucose (mg/dL) 177 H 197 H 168 H (75-99) mg/dL 05/11/17 05/11/17 05/11/17 Range/Units 00:26 02:34 04:22 WBC (3.8-10.6) k/uL Neutrophils # (1.3-7.7) k/uL Potassium (3.5-5.1) mmol/L Carbon Dioxide (22-30) mmol/L BUN (7-17) mg/dL Glucose (74-99) mg/dL POC Glucose (mg/dL) 148 H 158 H 138 H (75-99) mg/dL 05/11/17 05/11/17 05/11/17 Range/Units 06:44 08:18 08:18 WBC 10.7 H (3.8-10.6) k/uL Neutrophils # 8.4 H (1.3-7.7) k/uL Potassium 3.3 L (3.5-5.1) mmol/L Carbon Dioxide 32 H (22-30) mmol/L BUN 34 H (7-17) mg/dL Glucose 193 H (74-99) mg/dL POC Glucose (mg/dL) 163 H (75-99) mg/dL 05/11/17 Range/Units 09:02 WBC (3.8-10.6) k/uL Neutrophils # (1.3-7.7) k/uL Potassium (3.5-5.1) mmol/L Carbon Dioxide (22-30) mmol/L BUN (7-17) mg/dL Glucose (74-99) mg/dL POC Glucose (mg/dL) 231 H (75-99) mg/dL Microbiology - Last 24 Hours (Table) 05/10/17 08:15 Gram Stain - Preliminary Sputum 05/05/17 12:55 Blood Culture - Preliminary Blood No Growth after 120 hours 05/09/17 08:00 Gram Stain - Preliminary Sputum Sputum Culture - Preliminary Priscila albicans Assessment and Plan (1) CHF (congestive heart failure) Status: Acute (2) Acute respiratory failure Status: Acute (3) Asthma with exacerbation Status: Acute (4) Community acquired pneumonia Status: Acute (5) Hypoxia Status: Acute Plan: Plan dated 05/11/2017 The patient will be followed. Primary service should consider giving the patient some additional diuretic. Antibiotics and breathing treatments are appropriate. I believe most of the problems not related to fluid overload. We' ll continue to follow. Prognosis is guarded. Time with Patient: Less than 30
[2017-05-11 10:45] LABS: Glucose,Whole Blood 146 mg/dL (75-99)
[2017-05-11 12:13] LABS: Glucose,Whole Blood 118 mg/dL (75-99)
[2017-05-11 13:13] LABS: Glucose,Whole Blood 194 mg/dL (75-99)
[2017-05-11] MEDS: LEVOFLOXACIN 750 MG TAB PO SCH (14:30)
[2017-05-11 15:13] LABS: Glucose,Whole Blood 213 mg/dL (75-99)
--- NOTE | 2017-05-11 15:47 | P.PN ---
Subjective Date of service 05/10/2017 Progress note being dictated for Dr. Vasques. Interval history: This a 36-year-old female with atypical pneumonia, and multiple other medical issues. Maintained on nebulized bronchodilators, antibiotics, IV steroids. Elevated blood sugars, maintained on insulin drip. Chest x-ray reporting stable, persistent residual left basilar linear atelectasis and/or infiltrate with mild central vascular congestion. Denies cough. Denies chest pain, palpitations or increasing shortness of breath. Maintaining O2 sats of 94% on 4 L nasal cannula. Objective - Vital Signs Vital signs: Vital Signs Temp 98.3 F 05/10/17 15:56 Pulse 80 05/10/17 21:27 Resp 18 05/10/17 15:56 BP 131/64 05/10/17 15:56 Pulse Ox 90 L 05/10/17 15:56 Intake & Output 05/10/17 05/10/17 05/11/17 06:59 18:59 06:59 Intake Total 552.454 174.902 24.0 Output Total 900 Balance -347.546 174.902 24.0 Weight 143.9 kg Intake: IV 50 Piperacillin-Tazobactam 3 50 .375 gm In Dextrose/Water 1 50ml.bag @ 12.5 mls/hr IVPB Q8H [facility] Rx#: [id number] Intake, IV Titration 262.454 54.902 24.0 Amount Insulin Regular 100 unit 42.454 54.902 24.0 In Sodium Chloride 0.9% 100 ml @ Titrate IV .Q0M [facility] Rx#:[id number] Sodium Chloride 0.9% 1, 220 000 ml @ 20 mls/hr IV . Q24H [facility] Rx#:[id number] Oral 240 120 Output: Urine 900 Other: Voiding Method Toilet Toilet # Voids 1 1 # Bowel Movements 1 - Exam PHYSICAL EXAM: VITAL SIGNS: As above GENERAL: [Sitting up in bed, no acute distress] HEENT: [Pupils equal conjunctiva normal. Oral mucosa moist] NECK: [Supple, no JVD] RESPIRATORY EFFORT:[ Mildly Increased] LUNGS: [Scattered rhonchi, bilateral bases diminished, no crackles, no wheezes] CARDIOVASCULAR[ regular S1 and S2, no murmurs,rubs or gallops no edema] GI: [Abdomen soft, nontender, positive bowel sounds.] PSYCH: [Alert and oriented -3, mood and affect normal.] NEURO: [No focal deficits] - Labs CBC & Chem 7: 05/11/17 08:18 05/11/17 08:18 Labs: Abnormal Lab Results - Last 24 Hours (Table) 05/10/17 05/10/17 05/10/17 Range/Units 01:09 03:36 05:33 Carbon Dioxide (22-30) mmol/L BUN (7-17) mg/dL Glucose (74-99) mg/dL POC Glucose (mg/dL) 138 H 166 H 151 H (75-99) mg/dL 05/10/17 05/10/17 05/10/17 Range/Units 06:04 07:15 09:15 Carbon Dioxide 33 H (22-30) mmol/L BUN 35 H (7-17) mg/dL Glucose 129 H (74-99) mg/dL POC Glucose (mg/dL) 132 H 174 H (75-99) mg/dL 05/10/17 05/10/17 05/10/17 Range/Units 11:19 14:39 17:01 Carbon Dioxide (22-30) mmol/L BUN (7-17) mg/dL Glucose (74-99) mg/dL POC Glucose (mg/dL) 168 H 268 H 229 H (75-99) mg/dL 05/10/17 05/10/17 05/10/17 Range/Units 18:31 20:37 22:31 Carbon Dioxide (22-30) mmol/L BUN (7-17) mg/dL Glucose (74-99) mg/dL POC Glucose (mg/dL) 177 H 197 H 168 H (75-99) mg/dL Microbiology - Last 24 Hours (Table) 05/05/17 12:55 Blood Culture - Preliminary Blood No Growth after 120 hours 05/09/17 08:00 Gram Stain - Preliminary Sputum Sputum Culture - Preliminary Priscila albicans Assessment and Plan Plan: 1. [ Atypical bilateral bronchial pneumonia, bronchiolitis, transbronchial infection, right hilar consolidation, 2. [ Acute hypoxic respiratory failure secondary to the above 3. [ Rule out vasculitis, workup in progress]. Plan: Continue on current medication regime ,monitoring and symptomatic treatment. Maintain nebulized bronchodilators, systemic steroids, antibiotics. Follow closely with pulmonary. Further recommendations to follow. The impression and plan of care has been dictated as directed. : I performed a H&P examination of this patient and discussed the same with the dictator. I agree with the dictator's note. Any additional findings/opinions/ etc. will be noted.
[2017-05-11 17:05] LABS: Glucose,Whole Blood 247 mg/dL (75-99)
[2017-05-11] MEDS ORDERED: Potassium Replacement Protocol 1 EACH MISC MISCELLANE PRN (18:01)
--- NOTE | 2017-05-11 18:08 | P.PN ---
Subjective Date of service 05/11/2017 Progress note being dictated for Dr. Hankins Interval history: This a 36-year-old female with atypical pneumonia, and multiple other medical issues. Maintained on nebulized bronchodilators, antibiotics, IV steroids. Continue O2 sats of 93% on 2 L nasal cannula. Elevated blood [id number], maintained on insulin drip. Chest x-ray reporting mildly increased interstitial densities, patchy atelectasis, left base infiltrate. Nonproductive cough, wheezing. He ambulated in hallway, tolerating exertion well. Positive diet intake with no nausea or vomiting. Doubt fluid overload, Normal EF function, no JVD. Eyes chest pain, palpitations or increasing shortness of breath. Objective - Vital Signs Vital signs: Vital Signs Temp 99.0 F 05/11/17 15:00 Pulse 74 05/11/17 15:00 Resp 18 05/11/17 15:00 BP 126/71 05/11/17 15:00 Pulse Ox 93 L 05/11/17 15:00 Intake & Output 05/10/17 05/11/17 05/11/17 18:59 06:59 18:59 Intake Total 174.902 55.251 43.217 Output Total 200 Balance 174.902 -144.749 43.217 Intake: Intake, IV Titration 54.902 55.251 43.217 Amount Insulin Regular 100 unit 54.902 55.251 43.217 In Sodium Chloride 0.9% 100 ml @ Titrate IV .Q0M [facility] Rx#:[id number] Oral 120 Output: Urine 200 Other: Voiding Method Toilet Toilet # Voids 1 2 # Bowel Movements 0 - Exam PHYSICAL EXAM: VITAL SIGNS: As above GENERAL: [Sitting up in bed, no acute distress] HEENT: [Pupils equal conjunctiva normal. Oral mucosa moist] NECK: [Supple, no JVD] RESPIRATORY EFFORT:[ Mildly Increased] LUNGS: [Scattered rhonchi, bilateral bases diminished, no crackles, expiratory wheezes] CARDIOVASCULAR[ regular S1 and S2, no murmurs,rubs or gallops, no edema] GI: [Abdomen soft, nontender, positive bowel sounds.] PSYCH: [Alert and oriented -3, mood and affect normal.] NEURO: [No focal deficits] - Labs CBC & Chem 7: 05/11/17 08:18 05/11/17 08:18 Labs: Abnormal Lab Results - Last 24 Hours (Table) 05/10/17 05/10/17 05/10/17 Range/Units 17:01 18:31 20:37 WBC (3.8-10.6) k/uL Neutrophils # (1.3-7.7) k/uL Potassium (3.5-5.1) mmol/L Carbon Dioxide (22-30) mmol/L BUN (7-17) mg/dL Glucose (74-99) mg/dL POC Glucose (mg/dL) 229 H 177 H 197 H (75-99) mg/dL 05/10/17 05/11/17 05/11/17 Range/Units 22:31 00:26 02:34 WBC (3.8-10.6) k/uL Neutrophils # (1.3-7.7) k/uL Potassium (3.5-5.1) mmol/L Carbon Dioxide (22-30) mmol/L BUN (7-17) mg/dL Glucose (74-99) mg/dL POC Glucose (mg/dL) 168 H 148 H 158 H (75-99) mg/dL 05/11/17 05/11/17 05/11/17 Range/Units 04:22 06:44 08:18 WBC 10.7 H (3.8-10.6) k/uL Neutrophils # 8.4 H (1.3-7.7) k/uL Potassium (3.5-5.1) mmol/L Carbon Dioxide (22-30) mmol/L BUN (7-17) mg/dL Glucose (74-99) mg/dL POC Glucose (mg/dL) 138 H 163 H (75-99) mg/dL 05/11/17 05/11/17 05/11/17 Range/Units 08:18 09:02 10:33 WBC (3.8-10.6) k/uL Neutrophils # (1.3-7.7) k/uL Potassium 3.3 L (3.5-5.1) mmol/L Carbon Dioxide 32 H (22-30) mmol/L BUN 34 H (7-17) mg/dL Glucose 193 H (74-99) mg/dL POC Glucose (mg/dL) 231 H 146 H (75-99) mg/dL 05/11/17 05/11/1705/11/17 Range/Units 12:12 13:01 15:12 WBC (3.8-10.6) k/uL Neutrophils # (1.3-7.7) k/uL Potassium (3.5-5.1) mmol/L Carbon Dioxide (22-30) mmol/L BUN (7-17) mg/dL Glucose (74-99) mg/dL POC Glucose (mg/dL) 118 H 194 H 213 H (75-99) mg/dL Microbiology - Last 24 Hours (Table) 05/05/17 12:55 Blood Culture - Final Blood No Growth after 144 hours 05/10/17 08:15 Gram Stain - Preliminary Sputum Sputum Culture - Preliminary Priscila albicans 05/09/17 08:00 Gram Stain - Final Sputum Sputum Culture - Final Priscila albicans Assessment and Plan Plan: 1. [ Acute asthma exacerbation with Atypical bilateral bronchial pneumonia, bronchiolitis, transbronchial infection, right hilar consolidation, 2. [ Acute hypoxic respiratory failure secondary to the above 3. Hypokalemia Plan: Continue on current medication regime ,monitoring and symptomatic treatment. Potassium replacement as per replacement protocol as ordered. BNP ordered ,though clinically doubt fluid overload. Maintain nebulized bronchodilators, systemic steroids, antibiotics. Discharge planning in progress. Further recommendations to follow. The impression and plan of care has been dictated as directed. : I performed a H&P examination of this patient and discussed the same with the dictator. I agree with the dictator's note. Any additional findings/opinions/ etc. will be noted.
[2017-05-11 19:36] LABS: Glucose,Whole Blood 222 mg/dL (75-99)
[2017-05-11] MEDS: ACYCLOVIR 800 MG TAB PO SCH (21:06)
[2017-05-11] MEDS: METOPROLOL TARTRATE 25 MG TAB PO SCH (21:07)
[2017-05-11] MEDS: lamoTRIgine 100 MG TAB PO SCH (21:07)
[2017-05-11] MEDS: MIRTAZAPINE 45 MG TABLET PO SCH (21:07)
[2017-05-11] MEDS: INSULIN REGULAR 100 UNIT in SODIUM CHLORIDE 0.9% 100 ML IV SCH (21:08)
[2017-05-11] MEDS: PANTOPRAZOLE 40 MG TABLET PO SCH (21:08)
[2017-05-11] MEDS: VERAPAMIL SR 180 MG TABLET.ER PO SCH (21:08)
[2017-05-11] MEDS: QUEtiapine 100 MG TAB PO SCH (21:08)
[2017-05-11 21:41] LABS: Glucose,Whole Blood 159 mg/dL (75-99)
[2017-05-11 23:33] LABS: Glucose,Whole Blood 215 mg/dL (75-99)
[2017-05-12] MEDS: SODIUM CHLORIDE 0.9% 1,000 ML IV SCH ×2 (00:58→22:08)
[2017-05-12 01:50] LABS: Glucose,Whole Blood 194 mg/dL (75-99)
[2017-05-12 03:13] LABS: Glucose,Whole Blood 191 mg/dL (75-99)
[2017-05-12 05:19] LABS: Glucose,Whole Blood 153 mg/dL (75-99)
[2017-05-12] MEDS: PIPERACILLIN-TAZOBACTAM 3.375 GM in DEXTROSE/WATER 1 50ML.BAG IVPB SCH ×3 (05:30→21:54)
[2017-05-12] MEDS: HYDROcodone/APAP 7.5-325MG 1 EACH TAB PO PRN ×3 (06:21→21:02)
[2017-05-12] MEDS: methylPREDNISolone SOD SUCCI 125 MG/2 ML VIAL IV SCH (06:23)
[2017-05-12] MEDS: BUDESONIDE 1 MG/2 ML NEBU INHALATION SCH (06:51)
[2017-05-12] MEDS: IPRATROPIUM-ALBUTEROL 3 ML NEB INHALATION SCH ×4 (06:51→19:50)
[2017-05-12 07:48] LABS: Glucose,Whole Blood 131 mg/dL (75-99)
[2017-05-12] MEDS: INSULIN LISPRO (humaLOG) 300 UNIT/3 ML VIAL SQ SCH ×4 (08:23→21:03)
[2017-05-12] MEDS: LIDOCAINE 2% GEL 30 ML TUBE TOPICAL SCH ×2 (08:24→21:03)
[2017-05-12] MEDS: CITALOPRAM HYDROBROMIDE 20 MG TAB PO SCH (08:24)
[2017-05-12] MEDS: ENOXAPARIN 40 MG/0.4 ML SYRINGE SQ SCH (08:24)
[2017-05-12] MEDS: FUROSEMIDE 10 MG/ML 2 ML VIAL IV SCH ×2 (08:24→21:03)
[2017-05-12 08:49] LABS: Anion Gap 10 mmol/L; Blood Urea Nitrogen 37 mg/dL (7-17); Calcium 8.9 mg/dL (8.4-10.2); Carbon Dioxide 33 mmol/L (22-30); Chloride 99 mmol/L (98-107); Glucose 173 mg/dL (74-99); Magnesium 2.4 mg/dL (1.6-2.3); Non-African American GFR(MDRD) >60 (>60 ml/min/1.73 sqM); Potassium 3.4 mmol/L (3.5-5.1); Sodium 142 mmol/L (137-145)
[2017-05-12 09:01] LABS: CH 31.6; CHCM 33.6; HCT 41.6 % (34.0-46.0); HDW 2.73; HGB 14.1 gm/dL (11.4-16.0); Immature Gran Flag Slight; MCH 32.1 pg (25.0-35.0); MCHC 33.9 g/dL (31.0-37.0); MCV 94.6 fL (80.0-100.0); Mean Platelet Volume 8.1; RDW 13.8 % (11.5-15.5); WBC (Perox) 12.36
[2017-05-12] MEDS: PREGABALIN 100 MG CAP PO SCH ×2 (09:45→21:02)
[2017-05-12] MEDS: NYSTATIN 100,000 UNIT/ML SUSP 500,000 UNIT/5 ML CUP PO SCH ×4 (09:46→21:05)
[2017-05-12 09:47] LABS: Add Differential Manual Differential
[2017-05-12 09:51] LABS: Manual Review Performed; Metamyelocytes % 0.5 %; Myelocytes % 3.5 %; Nucleated Red Blood Cells 1 /100 WBC (0-0); Total Cells Counted 200
[2017-05-12 09:57] LABS: Glucose,Whole Blood 262 mg/dL (75-99)
--- NOTE | 2017-05-12 10:57 | P.PN ---
Subjective Progress note dated 05/11/2017 36-year-old female in the ICU for a number days with acute asthma exacerbation [place] by community acquired pneumonia and volume overload. I believe the pneumonia is pre-much resolved. Her most recent chest x-ray shows mostly fluid overload. The patient is doing much better. Was moved out of the ICU a couple days back. Still very much improved from when she first came in. Still short of breath a bit. This is especially so when she gets up and uses bathroom. Not coughing so much. Not producing any phlegm. No fever no chills. No nausea vomiting or diarrhea. No chest pain or chest discomfort. Progress note dated 05/12/2017 36-year-old female with a diagnosis of asthma exacerbation pneumonia and fluid overload. The patient is doing much better. His been weaned down to 3 L. She may be discharged home on oxygen therapy for transient period of time. She is feeling better. Getting antsy. His been here in the hospital for about 7 days. Spent a number of days up in the intensive care unit. With like to be discharged home if possible. She is feeling much better. Not coughing very much. Not producing any phlegm. Yesterday's chest x-ray showed mostly fluid overloaded not much so much pneumonia. No fever no chills. No chest pain. No chest discomfort. No nausea vomiting or diarrhea. Objective - Vital Signs Vital signs: Vital Signs Temp 98.2 F 05/12/17 07:00 Pulse 78 05/12/17 10:43 Resp 16 05/12/17 07:00 BP 131/76 05/12/17 07:00 Pulse Ox 96 05/12/17 07:00 Intake & Output 05/11/17 05/12/17 05/12/17 18:59 06:59 18:59 Intake Total 56.217 62.579 208.40 Balance 56.217 62.579 208.40 Intake: Intake, IV Titration 56.217 62.579 8.40 Amount Insulin Regular 100 unit 56.217 62.579 8.40 In Sodium Chloride 0.9% 100 ml @ Titrate IV .Q0M [facility] Rx#:[id number] Oral 200 Other: Voiding Method Toilet - Exam No acute distress, oriented 3. HEENT Exam is unremarkable. Mucous membranes are moist. No oral lesions. Neck supple. Full range of motion. No adenopathy thyromegaly or neck vein distention. Cardiovascular examination reveals regular rhythm rate. S1-S2 normal. Heart rate mid 70s. No murmur. No S3 or S4. Lungs reveal some bibasilar crackles. Breath sounds are equal. No wheezes or rhonchi. Abdomen soft bowel sounds are heard. Extremities are intact. No cyanosis or clubbing. Trace edema. Skin without rash. Neurologic examination is brief but nonfocal - Labs CBC & Chem 7: 05/12/17 08:15 05/12/17 08:15 Labs: Abnormal Lab Results - Last 24 Hours (Table) 05/11/17 05/11/17 05/11/17 Range/Units 12:12 13:01 15:12 WBC (3.8-10.6) k/uL Neutrophils # (Manual) (1.3-7.7) k/uL Monocytes # (Manual) (0-1.0) k/uL Nucleated RBCs (0-0) /100 WBC Potassium (3.5-5.1) mmol/L Carbon Dioxide (22-30) mmol/L BUN (7-17) mg/dL Glucose (74-99) mg/dL POC Glucose (mg/dL) 118 H 194 H 213 H (75-99) mg/dL Magnesium (1.6-2.3) mg/dL 05/11/17 05/11/17 05/11/17 Range/Units 17:03 19:17 21:23 WBC (3.8-10.6) k/uL Neutrophils # (Manual) (1.3-7.7) k/uL Monocytes # (Manual) (0-1.0) k/uL Nucleated RBCs (0-0) /100 WBC Potassium (3.5-5.1) mmol/L Carbon Dioxide (22-30) mmol/L BUN (7-17) mg/dL Glucose (74-99) mg/dL POC Glucose (mg/dL) 247 H 222 H 159 H (75-99) mg/dL Magnesium (1.6-2.3) mg/dL 05/11/17 05/12/17 05/12/17 Range/Units 23:21 01:37 03:10 WBC (3.8-10.6) k/uL Neutrophils # (Manual) (1.3-7.7) k/uL Monocytes # (Manual) (0-1.0) k/uL Nucleated RBCs (0-0) /100 WBC Potassium (3.5-5.1) mmol/L Carbon Dioxide (22-30) mmol/L BUN (7-17) mg/dL Glucose (74-99) mg/dL POC Glucose (mg/dL) 215 H 194 H 191 H (75-99) mg/dL Magnesium (1.6-2.3) mg/dL 05/12/17 05/12/17 05/12/17 Range/Units 05:14 07:06 08:15 WBC 12.0 H (3.8-10.6) k/uL Neutrophils # (Manual) 7.8 H (1.3-7.7) k/uL Monocytes # (Manual) 1.3 H (0-1.0) k/uL Nucleated RBCs 1 H (0-0) /100 WBC Potassium (3.5-5.1) mmol/L Carbon Dioxide (22-30) mmol/L BUN (7-17) mg/dL Glucose (74-99) mg/dL POC Glucose (mg/dL) 153 H 131 H (75-99) mg/dL Magnesium (1.6-2.3) mg/dL 05/12/17 05/12/17 Range/Units 08:15 09:36 WBC (3.8-10.6) k/uL Neutrophils # (Manual) (1.3-7.7) k/uL Monocytes # (Manual) (0-1.0) k/uL Nucleated RBCs (0-0) /100 WBC Potassium 3.4 L (3.5-5.1) mmol/L Carbon Dioxide 33 H (22-30) mmol/L BUN 37 H (7-17) mg/dL Glucose 173 H (74-99) mg/dL POC Glucose (mg/dL) 262 H (75-99) mg/dL Magnesium 2.4 H (1.6-2.3) mg/dL Microbiology - Last 24 Hours (Table) 05/05/17 12:55 Blood Culture - Final Blood No Growth after 144 hours 05/10/17 08:15 Gram Stain - Preliminary Sputum Sputum Culture - Preliminary Priscila albicans 05/09/17 08:00 Gram Stain - Final Sputum Sputum Culture - Final Priscila albicans Assessment and Plan (1) CHF (congestive heart failure) Status: Acute (2) Acute respiratory failure Status: Acute (3) Asthma with exacerbation Status: Acute (4) Community acquired pneumonia Status: Acute (5) Hypoxia Status: Acute Plan: Plan dated 05/11/2017 The patient will be followed. Primary service should consider giving the patient some additional diuretic. Antibiotics and breathing treatments are appropriate. I believe most of the problems not related to fluid overload. We' ll continue to follow. Prognosis is guarded. Plan dated 05/12/2017 The patient's clinically doing better. May have to be discharged home on oxygen therapy for brief period of time. We'll continue to follow. Chest x- ray from yesterday did show some fluid overload. I did recommend that she get some additional Lasix. She looks clinically well. Not uncomfortable. Still on oxygen therapy at 3 L. We'll continue to follow. Time with Patient: Less than 30
[2017-05-12] MEDS ORDERED: Potassium Replacement Protocol 1 EACH MISC MISCELLANE PRN ×2 (11:00→15:48)
[2017-05-12 11:14] VITALS: BMI 45.5
[2017-05-12 11:33] LABS: Glucose,Whole Blood 179 mg/dL (75-99)
[2017-05-12] MEDS: ACETAMINOPHEN TAB 325 MG TAB PO PRN (11:39)
[2017-05-12] MEDS: POTASSIUM CHLORIDE ER 20 MEQ TAB.ER PO SCH ×4 (11:40→17:34)
[2017-05-12 13:47] LABS: Glucose,Whole Blood 148 mg/dL (75-99)
[2017-05-12] MEDS: LEVOFLOXACIN 750 MG TAB PO SCH (14:41)
[2017-05-12 14:57] LABS: Glucose,Whole Blood 151 mg/dL (75-99)
[2017-05-12 15:22] LABS: Anion Gap 10 mmol/L; Blood Urea Nitrogen 37 mg/dL (7-17); Carbon Dioxide 32 mmol/L (22-30); Chloride 99 mmol/L (98-107); Glucose 136 mg/dL (74-99); Non-African American GFR(MDRD) 56 (>60 ml/min/1.73 sqM); Potassium 3.4 mmol/L (3.5-5.1); Sodium 141 mmol/L (137-145)
--- NOTE | 2017-05-12 15:49 | P.PN ---
Subjective Date of service 05/12/2017 Progress note being dictated for Dr. Hankins Interval history: This a 36-year-old female with atypical pneumonia, and multiple other medical issues. Maintained on nebulized bronchodilators, antibiotics, IV steroids. Maintained on IV antibiotics. Feels better today, nonproductive cough, states breathing better. Possible Diet intake with no nausea vomiting or diarrhea. Denies chest pain, palpitations. O2 sat on room air after ambulation 81%. Objective - Vital Signs Vital signs: Vital Signs Temp 98.2 F 05/12/17 07:00 Pulse 80 05/12/17 10:53 Resp 16 05/12/17 07:00 BP 131/76 05/12/17 07:00 Pulse Ox 96 05/12/17 07:00 Intake & Output 05/11/17 05/12/17 05/12/17 18:59 06:59 18:59 Intake Total 56.217 62.579 445.017 Balance 56.217 62.579 445.017 Weight 143.9 kg Intake: Intake, IV Titration 56.217 62.579 45.017 Amount Insulin Regular 100 unit 56.217 62.579 45.017 In Sodium Chloride 0.9% 100 ml @ Titrate IV .Q0M SANDRA Rx#:[id number] Oral 400 Other: Voiding Method Toilet Toilet - Exam PHYSICAL EXAM: VITAL SIGNS: As above GENERAL: [Sitting up in bed, no acute distress] HEENT: [Pupils equal conjunctiva normal. Oral mucosa moist] NECK: [Supple, no JVD] RESPIRATORY EFFORT:[ Mildly Increased] LUNGS: Improved air entry, bilateral bases diminished, no crackles, no expiratory wheezes] CARDIOVASCULAR[ regular S1 and S2, no murmurs,rubs or gallops, no edema] GI: [Abdomen soft, nontender, positive bowel sounds.] PSYCH: [Alert and oriented -3, mood and affect normal.] SKIN: Rash much improved on Legs,feet, and back NEURO: [No focal deficits] - Labs CBC & Chem 7: 05/12/17 08:15 05/12/17 15:01 Labs: Abnormal Lab Results - Last 24 Hours (Table) 05/11/17 05/11/17 05/11/17 Range/Units 17:03 19:17 21:23 WBC (3.8-10.6) k/uL Neutrophils # (Manual) (1.3-7.7) k/uL Monocytes # (Manual) (0-1.0) k/uL Nucleated RBCs (0-0) /100 WBC Potassium (3.5-5.1) mmol/L Carbon Dioxide (22-30) mmol/L BUN (7-17) mg/dL Creatinine (0.52-1.04) mg/dL Glucose (74-99) mg/dL POC Glucose (mg/dL) 247 H 222 H 159 H (75-99) mg/dL Magnesium (1.6-2.3) mg/dL 05/11/17 05/12/17 05/12/17 Range/Units 23:21 01:37 03:10 WBC (3.8-10.6) k/uL Neutrophils # (Manual) (1.3-7.7) k/uL Monocytes # (Manual) (0-1.0) k/uL Nucleated RBCs (0-0) /100 WBC Potassium (3.5-5.1) mmol/L Carbon Dioxide (22-30) mmol/L BUN (7-17) mg/dL Creatinine (0.52-1.04) mg/dL Glucose (74-99) mg/dL POC Glucose (mg/dL) 215 H 194 H 191 H (75-99) mg/dL Magnesium (1.6-2.3) mg/dL 05/12/17 05/12/17 05/12/17 Range/Units 05:14 07:06 08:15 WBC 12.0 H (3.8-10.6) k/uL Neutrophils # (Manual) 7.8 H (1.3-7.7) k/uL Monocytes # (Manual) 1.3 H (0-1.0) k/uL Nucleated RBCs 1 H (0-0) /100 WBC Potassium (3.5-5.1) mmol/L Carbon Dioxide (22-30) mmol/L BUN (7-17) mg/dL Creatinine (0.52-1.04) mg/dL Glucose (74-99) mg/dL POC Glucose (mg/dL) 153 H 131 H (75-99) mg/dL Magnesium (1.6-2.3) mg/dL 07/13/17 07/13/17 07/13/17 Range/Units 08:15 09:36 11:23 WBC (3.8-10.6) k/uL Neutrophils # (Manual) (1.3-7.7) k/uL Monocytes # (Manual) (0-1.0) k/uL Nucleated RBCs (0-0) /100 WBC Potassium 3.4 L (3.5-5.1) mmol/L Carbon Dioxide 33 H (22-30) mmol/L BUN 37 H (7-17) mg/dL Creatinine (0.52-1.04) mg/dL Glucose 173 H (74-99) mg/dL POC Glucose (mg/dL) 262 H 179 H (75-99) mg/dL Magnesium 2.4 H (1.6-2.3) mg/dL 05/12/17 05/12/17 05/12/17 Range/Units 13:44 14:37 15:01 WBC (3.8-10.6) k/uL Neutrophils # (Manual) (1.3-7.7) k/uL Monocytes # (Manual) (0-1.0) k/uL Nucleated RBCs (0-0) /100 WBC Potassium 3.4 L (3.5-5.1) mmol/L Carbon Dioxide 32 H (22-30) mmol/L BUN 37 H (7-17) mg/dL Creatinine 1.10 H (0.52-1.04) mg/dL Glucose 136 H (74-99) mg/dL POC Glucose (mg/dL) 148 H 151 H (75-99) mg/dL Magnesium (1.6-2.3) mg/dL Microbiology - Last 24 Hours (Table) 05/10/17 08:15 Gram Stain - Final Sputum Sputum Culture - Final Priscila albicans 05/05/17 12:55 Blood Culture - Final Blood No Growth after 144 hours Assessment and Plan Plan: 1. [ Acute asthma exacerbation with Atypical bilateral bronchial pneumonia, bronchiolitis, transbronchial infection, right hilar consolidation, 2. [ Acute hypoxic respiratory failure secondary to the above 3. Hypokalemia 4. Rule out Vasculiltis,HSP-further work-up OP Plan: Continue on current medication regime ,monitoring and symptomatic treatment. Initially had planned for discharge, but patient desatted down to 81 % on room air after ambulation. We'll continue to monitor overnight. Potassium replacement as per replacement protocol as ordered. Maintain nebulized bronchodilators, oral steroids, antibiotics. Discharge planning in progress. Further recommendations to follow. The impression and plan of care has been dictated as directed. : I performed a H&P examination of this patient and discussed the same with the dictator. I agree with the dictator's note. Any additional findings/opinions/ etc. will be noted.
[2017-05-12] MEDS ORDERED: methylPREDNISolone SOD SUCCI 40 MG/ML 1 ML VIAL IV SCH (16:00)
[2017-05-12 17:01] LABS: Glucose,Whole Blood 140 mg/dL (75-99)
[2017-05-12 19:57] LABS: Anion Gap 8 mmol/L; Blood Urea Nitrogen 38 mg/dL (7-17); Calcium 9.2 mg/dL (8.4-10.2); Carbon Dioxide 31 mmol/L (22-30); Chloride 100 mmol/L (98-107); Glucose 134 mg/dL (74-99); Non-African American GFR(MDRD) 56 (>60 ml/min/1.73 sqM); Potassium 3.6 mmol/L (3.5-5.1); Sodium 139 mmol/L (137-145)
[2017-05-12 20:51] LABS: Glucose,Whole Blood 163 mg/dL (75-99)
[2017-05-12] MEDS: ACYCLOVIR 800 MG TAB PO SCH (21:03)
[2017-05-12] MEDS: MIRTAZAPINE 45 MG TABLET PO SCH (21:03)
[2017-05-12] MEDS: QUEtiapine 100 MG TAB PO SCH (21:04)
[2017-05-12] MEDS: VERAPAMIL SR 180 MG TABLET.ER PO SCH (21:04)
[2017-05-12] MEDS: METOPROLOL TARTRATE 25 MG TAB PO SCH (21:04)
[2017-05-12] MEDS: lamoTRIgine 100 MG TAB PO SCH (21:04)
[2017-05-12] MEDS: PANTOPRAZOLE 40 MG TABLET PO SCH (21:04)
[2017-05-13] MEDS: PIPERACILLIN-TAZOBACTAM 3.375 GM in DEXTROSE/WATER 1 50ML.BAG IVPB SCH ×2 (05:43→13:18)
[2017-05-13] MEDS: INSULIN LISPRO (humaLOG) 300 UNIT/3 ML VIAL SQ SCH ×2 (07:11→12:41)
[2017-05-13 07:30] VITALS: BP 133/66; TEMP 98.1
[2017-05-13 07:35] LABS: Glucose,Whole Blood 105 mg/dL (75-99)
[2017-05-13] MEDS: IPRATROPIUM-ALBUTEROL 3 ML NEB INHALATION SCH ×2 (08:10→13:06)
[2017-05-13 08:13] VITALS: PULSE 72
[2017-05-13 08:20] LABS: Anion Gap 7 mmol/L; Blood Urea Nitrogen 37 mg/dL (7-17); Calcium 8.6 mg/dL (8.4-10.2); Carbon Dioxide 34 mmol/L (22-30); Chloride 102 mmol/L (98-107); Glucose 85 mg/dL (74-99); Non-African American GFR(MDRD) 60 (>60 ml/min/1.73 sqM); Potassium 3.7 mmol/L (3.5-5.1); Sodium 143 mmol/L (137-145)
[2017-05-13 08:34] LABS: CH 31.5; CHCM 34.1; HCT 37.8 % (34.0-46.0); HDW 2.74; HGB 13.4 gm/dL (11.4-16.0); Immature Gran Flag Moderate; MCHC 35.5 g/dL (31.0-37.0); Mean Platelet Volume 8.3; RBC 4.06 m/uL (3.80-5.40); RDW 14.2 % (11.5-15.5); WBC 10.8 k/uL (3.8-10.6)
[2017-05-13] MEDS ORDERED: predniSONE 20 MG TAB PO SCH (09:00)
[2017-05-13 09:04] VITALS: RESP 20
[2017-05-13] MEDS: LIDOCAINE 2% GEL 30 ML TUBE TOPICAL SCH (09:39)
[2017-05-13] MEDS: ENOXAPARIN 40 MG/0.4 ML SYRINGE SQ SCH (09:39)
[2017-05-13] MEDS: FUROSEMIDE 10 MG/ML 2 ML VIAL IV SCH (09:39)
[2017-05-13] MEDS: NYSTATIN 100,000 UNIT/ML SUSP 500,000 UNIT/5 ML CUP PO SCH ×2 (09:40→12:42)
[2017-05-13] MEDS: CITALOPRAM HYDROBROMIDE 20 MG TAB PO SCH (09:40)
[2017-05-13] MEDS: PREGABALIN 100 MG CAP PO SCH (09:49)
[2017-05-13] MEDS: HYDROcodone/APAP 7.5-325MG 1 EACH TAB PO PRN (09:49)
--- NOTE | 2017-05-13 09:49 | P.PN ---
Subjective Progress note dated 05/11/2017 36-year-old female in the ICU for a number days with acute asthma exacerbation [place] by community acquired pneumonia and volume overload. I believe the pneumonia is pre-much resolved. Her most recent chest x-ray shows mostly fluid overload. The patient is doing much better. Was moved out of the ICU a couple days back. Still very much improved from when she first came in. Still short of breath a bit. This is especially so when she gets up and uses bathroom. Not coughing so much. Not producing any phlegm. No fever no chills. No nausea vomiting or diarrhea. No chest pain or chest discomfort. Progress note dated 05/12/2017 36-year-old female with a diagnosis of asthma exacerbation pneumonia and fluid overload. The patient is doing much better. His been weaned down to 3 L. She may be discharged home on oxygen therapy for transient period of time. She is feeling better. Getting antsy. His been here in the hospital for about 7 days. Spent a number of days up in the intensive care unit. With like to be discharged home if possible. She is feeling much better. Not coughing very much. Not producing any phlegm. Yesterday's chest x-ray showed mostly fluid overloaded not much so much pneumonia. No fever no chills. No chest pain. No chest discomfort. No nausea vomiting or diarrhea. Note dated 05/13/2017 This is a 36-year-old female with a diagnosis of asthma exacerbation pneumonia and fluid overload. Yesterday she was noted be discharged home but apparently she became short of breath and desaturated and she was leaving the hospital. She was brought back to the room and maintained on oxygen therapy. Today she is doing much better. Much less short of breath. Her room air saturations are excellent. Walking up and down the hallway. She wants to go home today. No chest complaints. No chest congestion. No cough. No wheezing. No fever no chills. No nausea vomiting or diarrhea. Looks pretty good. Laying in bed. Anxious to get out here. Objective - Vital Signs Vital signs: Vital Signs Temp 98.1 F 05/13/17 07:00 Pulse 72 05/13/17 08:19 Resp 20 05/13/17 09:03 BP 133/66 05/13/17 07:00 Pulse Ox 94 L 05/13/17 09:39 Intake & Output 05/12/17 05/13/17 05/13/17 18:59 06:59 18:59 Intake Total 445.017 320 Balance 445.017 320 Weight 143.9 kg Intake: Intake, IV Titration 45.017 Amount Insulin Regular 100 unit 45.017 In Sodium Chloride 0.9% 100 ml @ Titrate IV .Q0M SANDRA Rx#:[id number] Oral 400 320 Other: Voiding Method Toilet # Voids 2 - Exam No acute distress, oriented 3. HEENT Exam is unremarkable. Mucous membranes are moist. No oral lesions. Neck supple. Full range of motion. No adenopathy thyromegaly or neck vein distention. Cardiovascular examination reveals regular rhythm rate. S1-S2 normal. Heart rate mid 70s. No murmur. No S3 or S4. Lungs reveal mostly clear breath sounds. A few scattered rhonchi. No wheezes. No crackles. Breath sounds equal. Abdomen soft bowel sounds are heard. Extremities are intact. No cyanosis or clubbing. Trace edema. Skin without rash. Neurologic examination is brief but nonfocal - Labs CBC & Chem 7: 05/13/17 07:36 05/13/17 07:36 Labs: Abnormal Lab Results - Last 24 Hours (Table) 05/12/17 05/12/17 05/12/17 Range/Units 08:15 09:36 11:23 WBC 12.0 H (3.8-10.6) k/uL Neutrophils # (Manual) 7.8 H (1.3-7.7) k/uL Monocytes # (Manual) 1.3 H (0-1.0) k/uL Nucleated RBCs 1 H (0-0) /100 WBC Potassium (3.5-5.1) mmol/L Carbon Dioxide (22-30) mmol/L BUN (7-17) mg/dL Creatinine (0.52-1.04) mg/dL Glucose (74-99) mg/dL POC Glucose (mg/dL) 262 H 179 H (75-99) mg/dL 05/12/17 05/12/17 05/12/17 Range/Units 13:44 14:37 15:01 WBC (3.8-10.6) k/uL Neutrophils # (Manual) (1.3-7.7) k/uL Monocytes # (Manual) (0-1.0) k/uL Nucleated RBCs (0-0) /100 WBC Potassium 3.4 L (3.5-5.1) mmol/L Carbon Dioxide 32 H (22-30) mmol/L BUN 37 H (7-17) mg/dL Creatinine 1.10 H (0.52-1.04) mg/dL Glucose 136 H (74-99) mg/dL POC Glucose (mg/dL) 148 H 151 H (75-99) mg/dL 05/12/17 05/12/17 05/12/17 Range/Units 16:40 19:21 20:48 WBC (3.8-10.6) k/uL Neutrophils # (Manual) (1.3-7.7) k/uL Monocytes # (Manual) (0-1.0) k/uL Nucleated RBCs (0-0) /100 WBC Potassium (3.5-5.1) mmol/L Carbon Dioxide 31 H (22-30) mmol/L BUN 38 H (7-17) mg/dL Creatinine 1.10 H (0.52-1.04) mg/dL Glucose 134 H (74-99) mg/dL POC Glucose (mg/dL) 140 H 163 H (75-99) mg/dL 05/13/17 05/13/17 05/13/17 Range/Units 07:10 07:36 07:36 WBC 10.8 H (3.8-10.6) k/uL Neutrophils # (Manual) (1.3-7.7) k/uL Monocytes # (Manual) (0-1.0) k/uL Nucleated RBCs (0-0) /100 WBC Potassium (3.5-5.1) mmol/L Carbon Dioxide 34 H (22-30) mmol/L BUN 37 H (7-17) mg/dL Creatinine (0.52-1.04) mg/dL Glucose (74-99) mg/dL POC Glucose (mg/dL) 105 H (75-99) mg/dL Microbiology - Last 24 Hours (Table) 05/10/17 08:15 Gram Stain - Final Sputum Sputum Culture - Final Priscila albicans Assessment and Plan (1) CHF (congestive heart failure) Status: Acute (2) Acute respiratory failure Status: Acute (3) Asthma with exacerbation Status: Acute (4) Community acquired pneumonia Status: Acute (5) Hypoxia Status: Acute Plan: Plan dated 05/11/2017 The patient will be followed. Primary service should consider giving the patient some additional diuretic. Antibiotics and breathing treatments are appropriate. I believe most of the problems not related to fluid overload. We' ll continue to follow. Prognosis is guarded. Plan dated 05/12/2017 The patient's clinically doing better. May have to be discharged home on oxygen therapy for brief period of time. We'll continue to follow. Chest x- ray from yesterday did show some fluid overload. I did recommend that she get some additional Lasix. She looks clinically well. Not uncomfortable. Still on oxygen therapy at 3 L. We'll continue to follow. Plan dated 05/13/2017 The patient's doing well. The patient probably will be discharged home today. Seem to have some soda issue yesterday when she was getting ready to leave the hospital. That was transient and short-lived. She feeling much better today. States her chest is feeling well and her breathing is better. Wants to go home. Time with Patient: Less than 30
[2017-05-13 10:22] LABS: Add Differential Manual Differential
[2017-05-13 10:27] LABS: Band Neutrophils % 4.5 %; Metamyelocytes % 2.5 %; Myelocytes % 1.5 %; Nucleated Red Blood Cells 0 /100 WBC (0-0); Total Cells Counted 200
[2017-05-13 10:28] LABS: Target Cells Present
[2017-05-13 11:59] LABS: Glucose,Whole Blood 116 mg/dL (75-99)
--- NOTE | 2017-05-13 16:21 | P.DS ---
Providers Date of admission: 05/05/17 16:03 Expected date of discharge: 05/13/17 Attending physician: MD Dr. Cr Montoya. Consults: 05/05/17 16:03 Consult Physician Routine Consulting Provider: Aurelio Hanna Consult Reason/Comments: pneumonia, resp failure Do you want consulting provider notified?: Yes 05/06/17 00:41 Consult Physician Routine Consulting Provider: Berkley Dunn Consult Reason/Comments: HSP Do you want consulting provider notified?: Yes Primary care physician: Solange Cowan Hospital Course: Final Diagnoses: . [ Acute asthma exacerbation with Atypical bilateral bronchial pneumonia, bronchiolitis, transbronchial infection, right hilar consolidation, 2. [ Acute hypoxic respiratory failure secondary to the above 3. Rule out Vasculiltis,HSP-further work-up OP Hospital course:This a 36-year-old female with atypical pneumonia, and multiple other medical issues. Maintained on nebulized bronchodilators, antibiotics, IV steroids. Evaluated by pulmonary. Significant clinical improvement. O2 sat on room air after ambulation 92%. Patient has been cleared by pulmonary for discharge. Patient is being discharged home in a stable condition with guarded prognosis. The impression and plan of care has been dictated as directed as a scribe. Dr.: I performed a H&P examination of this patient and discussed the same with the dictator. I agree with the dictator's note. Any additional findings/opinions/ etc. will be noted. Patient Condition at Discharge: Stable Plan - Discharge Summary New Discharge Prescriptions: New Albuterol Sulfate [Proair Hfa] 2 puff INHALATION QID #1 inhaler Levofloxacin [Levaquin] 750 mg PO 1500 #7 tab Nystatin 100,000 Unit/ml Susp [Mycostatin Oral Susp] 500,000 unit PO QID # 140 ml predniSONE 10 mg PO DIRECTED #30 tab Ipratropium-Albuterol Nebulize [Duoneb 0.5 mg-3 mg/3 ml Soln] 3 ml INHALATION RT-QID #120 neb Continue lamoTRIgine [LaMICtal] 300 mg PO HS Acyclovir [Zovirax] 800 mg PO HS Verapamil HCl [Verapamil ER] 180 mg PO HS Metoprolol Tartrate [Lopressor] 25 mg PO HS Pregabalin [Lyrica] 200 mg PO BID Mirtazapine [Remeron] 45 mg PO HS Omeprazole [PriLOSEC] 20 mg PO HS Promethazine 6.25MG/5Ml [Phenergan Syrup] 5 ml PO Q4HR PRN #120 ml PRN Reason: Cough HYDROcodone/APAP 7.5-325MG [[place] 7.5-325] 1 tab PO TID PRN PRN Reason: Pain QUEtiapine FUMARATE [SEROquel] 100 mg PO HS Citalopram Hydrobromide [CeleXA] 40 mg PO DAILY Discontinued Benzonatate [Tessalon Perles] 100 mg PO TID #21 cap Discharge Medication List Acyclovir [Zovirax] 800 mg PO HS 09/02/14 [History] lamoTRIgine [LaMICtal] 300 mg PO HS 09/02/14 [History] Metoprolol Tartrate [Lopressor] 25 mg PO HS 02/26/16 [History] Verapamil HCl [Verapamil ER] 180 mg PO HS 02/26/16 [History] Mirtazapine [Remeron] 45 mg PO HS 03/11/17 [History] Pregabalin [Lyrica] 200 mg PO BID 03/11/17 [History] Omeprazole [PriLOSEC] 20 mg PO HS 03/25/17 [History] Citalopram Hydrobromide [CeleXA] 40 mg PO DAILY 05/02/17 [History] HYDROcodone/APAP 7.5-325MG [[place] 7.5-325] 1 tab PO TID PRN 05/02/17 [History] Promethazine 6.25MG/5Ml [Phenergan Syrup] 5 ml PO Q4HR PRN #120 ml 05/02/17 [Rx] QUEtiapine FUMARATE [SEROquel] 100 mg PO HS 05/02/17 [History] Albuterol Sulfate [Proair Hfa] 2 puff INHALATION QID #1 inhaler 05/12/17 [Rx] Levofloxacin [Levaquin] 750 mg PO 1500 #7 tab 05/12/17 [Rx] Nystatin 100,000 Unit/ml Susp [Mycostatin Oral Susp] 500,000 unit PO QID #140 ml 05/12/17 [Rx] predniSONE 10 mg PO DIRECTED #30 tab 05/12/17 [Rx] Ipratropium-Albuterol Nebulize [Duoneb 0.5 mg-3 mg/3 ml Soln] 3 ml INHALATION RT -QID #120 neb 05/13/17 [Rx] Follow up Appointment(s)/Referral(s): Solange Cowan MD [Primary Care Provider] - 1 Week Phil Saez DO [Doctor of Osteopathic Medicine] - 05/25/17 1:00 pm Berkley Dunn MD [STAFF PHYSICIAN] - 3 Days (Office currently closed; please call and schedule appointment.) Patient Instructions/Handouts: Pneumonia (DC) Activity/Diet/Wound Care/Special Instructions: Patient states has long-acting bronchodilator, resume as advised per PCP. Cardiac diet. NO smoking, cessation information provided. Discharge Disposition: HOME SELF-CARE
== END 2017-05-13 14:25 | disposition home or self-care (01) | DRG 193 ==
LOC: EC 10:49 → 4MS4W 16:03 → 6ICU 05-07 10:47 → 6SEL 05-09 12:49 → 4MS4W 05-10 11:26
PROVIDERS: ADMIT Internal Medicine; ATTEND Internal Medicine
DX: J18.0 Bronchopneumonia, unspecified organism (principal); J96.01 Acute respiratory failure with hypoxia; D69.6 Thrombocytopenia, unspecified; D69.0 Allergic purpura; Z68.42 Body mass index [BMI] 45.0-49.9, adult; I50.9 Heart failure, unspecified; J45.901 Unspecified asthma with (acute) exacerbation; J21.9 Acute bronchiolitis, unspecified; E87.5 Hyperkalemia; D72.819 Decreased white blood cell count, unspecified; E66.9 Obesity, unspecified; E87.6 Hypokalemia; F17.200 Nicotine dependence, unspecified, uncomplicated; F31.9 Bipolar disorder, unspecified; F41.9 Anxiety disorder, unspecified; F90.9 Attention-deficit hyperactivity disorder, unspecified type; I25.2 Old myocardial infarction; I77.6 Arteritis, unspecified; K21.9 Gastro-esophageal reflux disease without esophagitis; L98.9 Disorder of the skin and subcutaneous tissue, unspecified; T38.0X5A Adverse effect of glucocorticoids and synthetic analogues, initial encounter; Z79.899 Other long term (current) drug therapy; Z80.0 Family history of malignant neoplasm of digestive organs; Z82.49 Family history of ischemic heart disease and other diseases of the circulatory system; Z83.3 Family history of diabetes mellitus; Z87.442 Personal history of urinary calculi; J42 Unspecified chronic bronchitis
CPT/HCPCS: 36415; 71010; 71020; 71275; 80048; 80053; 81001; 82085; 82164; 82550; 82595; 83036; 83516; 83605; 83735; 83880; 84439; 84443; 84550; 85025; 85027; 85610; 85613; 85652; 85730; 86140; 86147; 86160; 86162; 86225; 86255; 86431; 86803; 86812; 87040; 87070; 87205; 87340; 87449; 93005; 93306; 94640; 94660; 96361; 96365; 96366; 96367; 96375; 99291

== ENCOUNTER 2017-05-16 15:51 | Observation (INO) | payer OTHER ==
--- NOTE | 2017-05-16 16:30 | ED ---
Altered Mental Status HPI - General Chief Complaint: Altered Mental Status Stated Complaint: ALTERED MENTAL STATUS Source: patient, EMS Mode of arrival: EMS Limitations: no limitations - History of Present Illness Initial Comments: Patient is a 36-year-old female presents for evaluation for "a funny feeling in my head". Past medical history as below. Patient recently admitted and discharged on the for atypical pneumonia and acute hypoxic respiratory failure. Patient states that she has not felt well over the last several days. She is very nonspecific. States that she does not have any headaches or head pain. No neck pain. Denies any fevers at home. States that she has a cough but is somewhat improved since discharge. No shortness of breath. No nausea vomiting or diarrhea. No issues with going to the bathroom. She states that her appetite is decreased. She has no history of diabetes. Denies any alcohol or drug use. Denies fevers, URI symptoms, shortness of breath, chest pain, nausea, vomiting, diarrhea, pain or burning with urination. - Related Data Home Medications Medication Instructions Recorded Confirmed Acyclovir [Zovirax] 800 mg PO HS 09/02/14 05/16/17 lamoTRIgine [LaMICtal] 300 mg PO HS 09/02/14 05/16/17 Metoprolol Tartrate [Lopressor] 25 mg PO HS 02/26/16 05/16/17 Verapamil HCl [Verapamil ER] 180 mg PO HS 02/26/16 05/16/17 Mirtazapine [Remeron] 45 mg PO HS 03/11/17 05/16/17 Pregabalin [Lyrica] 200 mg PO BID 03/11/17 05/16/17 Omeprazole [PriLOSEC] 20 mg PO HS 03/25/17 05/16/17 Citalopram Hydrobromide [CeleXA] 40 mg PO DAILY 05/02/17 05/16/17 HYDROcodone/APAP 7.5-325MG [[place] 1 tab PO TID PRN 05/02/17 05/16/17 7.5-325] QUEtiapine FUMARATE [SEROquel] 100 mg PO HS 05/02/17 05/16/17 Albuterol Sulfate [Proair Hfa] 2 puff INHALATION RT-QID 05/16/17 05/16/17 Levofloxacin [Levaquin] 750 mg PO DAILY@1500 07/17/17 07/17/17 predniSONE See Taper PO DAILY 05/16/17 05/16/17 Previous Rx's Medication Instructions Recorded Promethazine 6.25MG/5Ml [Phenergan 5 ml PO Q4HR PRN #120 ml 05/02/17 Syrup] Nystatin 100,000 Unit/ml Susp 500,000 unit PO QID #140 ml 05/12/17 [Mycostatin Oral Susp] Ipratropium-Albuterol Nebulize 3 ml INHALATION RT-QID #120 neb 05/13/17 [Duoneb 0.5 mg-3 mg/3 ml Soln] Allergies Allergy/AdvReac Type Severity Reaction Status Date / Time azithromycin Allergy Unknown Rash/Hives Verified 05/16/17 17:08 [From Zithromax Z-Jeremie] magnesium sulfate Allergy Rash/Hives Verified 05/16/17 17:08 codeine phosphate AdvReac TREMORS Verified 05/16/17 17:08 [From Tylenol-Codeine #3] prednisone AdvReac Swelling Verified 05/16/17 17:08 Review of Systems ROS Statement: Those systems with pertinent positive or pertinent negative responses have been documented in the HPI. ROS Other: All systems not noted in ROS Statement are negative. Past Medical History Past Medical History: Asthma, GERD/Reflux, Myocardial Infarction ([place]), Renal Disease Additional Past Medical History / Comment(s): kidney stones, DJD- back pain., sciatic nerve pain, depression,ADHD, migraines, asthma and chronic bronchitis, DIVERTICULAR DISEASE, UTI, genital herpes Last Myocardial Infarction Date:: 10/2013 History of Any Multi-Drug Resistant Organisms: None Reported Past Surgical History: Cholecystectomy, Tubal Ligation, Uterine Ablation Additional Past Surgical History / Comment(s): d & c nova sure, colposcopy Past Anesthesia/Blood Transfusion Reactions: No Reported Reaction Additional Past Anesthesia/Blood Transfusion Reaction / Comment(s): never recieved blood. CLAUSTERPHOBIA Past Psychological History: ADD/ADHD, Anxiety, Bipolar, Depression Smoking Status: Current every day smoker - Past Family History Father Family Medical History: Myocardial Infarction (IA) Additional Family Medical History / Comment(s): FATHER HAD IA AT AGE 42 YRS. FATHER OF PANCREATIC CANCER. HE WAS AN ALCOHOLIC Mother Family Medical History: Coronary Artery Disease (CAD), Diabetes Mellitus, Myocardial Infarction (IA) General Exam Limitations: no limitations General appearance: alert, in no apparent distress, other (Laying on her side with her eyes closed) Head exam: Present: atraumatic, normocephalic, normal inspection Eye exam: Present: normal appearance, PERRL, EOMI. Absent: scleral icterus, conjunctival injection, periorbital swelling Pupils: Present: other (4 mm and reactive) ENT exam: Present: normal exam, mucous membranes moist Neck exam: Present: normal inspection. Absent: tenderness, meningismus, lymphadenopathy Respiratory exam: Present: normal lung sounds bilaterally, other (Coarse breath sounds and expiratory wheeze on the left lower lung prado.). Absent: respiratory distress, wheezes, rales, rhonchi, stridor Cardiovascular Exam: Present: regular rate, normal rhythm, normal heart sounds. Absent: systolic murmur, diastolic murmur, rubs, gallop, clicks GI/Abdominal exam: Present: soft, normal bowel sounds, other (Some bruising to the abdomen on the left. Patient was recently admitted though possibly could be heparin injections. There is no tenderness around this area. Abdomen is soft and nontender. No peritoneal signs.). Absent: distended, tenderness, guarding, rebound, rigid Extremities exam: Present: normal inspection, full ROM, normal capillary refill. Absent: tenderness, pedal edema, joint swelling, calf tenderness Back exam: Present: normal inspection Neurological exam: Present: alert, oriented X3, CN II-XII intact, other ( Patient is alert and oriented 3. Moves all 4 extremities. 5 out of 5 strength of the upper and lower charities. Follows simple commands.) Psychiatric exam: Present: normal affect, normal mood Skin exam: Present: warm, dry, intact, normal color. Absent: rash Course Vital Signs 05/16/17 05/16/17 05/16/17 16:05 16:58 17:05 Temperature 97.8 F Pulse Rate 75 78 76 Respiratory 16 Rate Blood Pressure 126/58 O2 Sat by Pulse 94 L Oximetry 05/16/17 18:40 Temperature 98.4 F Pulse Rate 63 Respiratory 16 Rate Blood Pressure 143/61 O2 Sat by Pulse 96 Oximetry Medical Decision Making - Medical Decision Making 1600: Patient is a 36-year-old female resents for evaluation for feeling lightheaded. Patient states that she is very sleepy. His been this way since discharge per the patient. She denies any intoxicants. No drugs. Her vital signs are stable at this time. The only true physical exam finding at this time is some expiratory wheeze on the left lower lung prado. Will order basic blood work with a lactic acid, alcohol level, UDS, urinalysis, blood and urine cultures, CT head without contrast, 1 view chest x-ray. Closely monitor. 1658: Reviewed EKG. Normal sinus rhythm at 69. ID 142. QRS 80. QTc 435. No ST changes. Similar to EKG on 05/05/2017. Awaiting labs. -Observed by nurses as below. Worsening leukocytosis. Closer her labs are relatively within normal limits. I added on a d-dimer. 1844: Reevaluated the patient. Seems to be a little bit more alert but again is very tired and sleepy. Very nondescript with her symptoms. She does have evidence of urinary tract infection. Possibly could be related. Recently admitted for atypical pneumonia and acute hypoxic respiratory failure. Ordered an additional breathing treatment she states that it feels that she is wheezing. Started on Rocephin. Possibly related to prednisone as an out- patient but uncertain at this time. PT does not feel comfortable going home. Do not feel the pt needs an LP at this time as there is no BRIZUELA, AMS, or fever. No neck pain. No known exposures. 1899: Discussed with [facility], will place in obs. - Lab Data Result diagrams: 05/16/17 16:33 05/16/17 16:33 Lab Results 05/16/17 05/16/17 05/16/17 Range/Units 16:33 16:33 16:33 WBC 13.6 H (3.8-10.6) k/uL RBC 4.50 (3.80-5.40) m/uL Hgb 14.3 (11.4-16.0) gm/dL Hct 42.2 (34.0-46.0) % MCV 93.9 (80.0-100.0) fL MCH 31.9 (25.0-35.0) pg MCHC 34.0 (31.0-37.0) g/dL RDW 14.4 (11.5-15.5) % Plt Count 205 (150-450) k/uL Neutrophils % 74 % Lymphocytes % 21 % Monocytes % 3 % Eosinophils % 1 % Basophils % 0 % Neutrophils # 10.0 H (1.3-7.7) k/uL Lymphocytes # 2.8 (1.0-4.8) k/uL Monocytes # 0.5 (0-1.0) k/uL Eosinophils # 0.2 (0-0.7) k/uL Basophils # 0.0 (0-0.2) k/uL VBG pH (7.31-7.41) VBG pCO2 (37-51) mmHg VBG HCO3 (24-28) mmol/L Sodium 140 (137-145) mmol/L Potassium 3.6 (3.5-5.1) mmol/L Chloride 107 (98-107) mmol/L Carbon Dioxide 26 (22-30) mmol/L Anion Gap 7 mmol/L BUN 23 H (7-17) mg/dL Creatinine 0.80 (0.52-1.04) mg/dL Est GFR (MDRD) Af Amer >60 (>60 ml/min/1.73 sqM) Est GFR (MDRD) Non-Af >60 (>60 ml/min/1.73 sqM) Glucose 95 (74-99) mg/dL Plasma Lactic Acid Duncan (0.7-2.0) mmol/L Calcium 8.9 (8.4-10.2) mg/dL Total Bilirubin 0.3 (0.2-1.3) mg/dL AST 23 (14-36) U/L ALT 65 H (9-52) U/L Alkaline Phosphatase 52 (38-126) U/L Troponin I 0.023 (0.000-0.034) ng/mL Total Protein 5.6 L (6.3-8.2) g/dL Albumin 3.4 L (3.5-5.0) g/dL Urine Color Urine Appearance (Clear) Urine pH (5.0-8.0) Ur Specific [place] (1.001-1.035) Urine Protein (Negative) Urine Glucose (UA) (Negative) Urine Ketones (Negative) Urine Blood (Negative) Urine Nitrite (Negative) Urine Bilirubin (Negative) Urine Urobilinogen (<2.0) mg/dL Ur Leukocyte Esterase (Negative) Urine RBC (0-5) /hpf Urine WBC (0-5) /hpf Ur Squamous Epith Cells (0-4) /hpf Urine Bacteria (None) /hpf Urine Opiates Screen (NotDetected) Ur Oxycodone Screen (NotDetected) Urine Methadone Screen (NotDetected) Ur Propoxyphene Screen (NotDetected) Ur Barbiturates Screen (NotDetected) U Tricyclic Antidepress (NotDetected) Ur Phencyclidine Scrn (NotDetected) Ur Amphetamines Screen (NotDetected) U Methamphetamines Scrn (NotDetected) U Benzodiazepines Scrn (NotDetected) Urine Cocaine Screen (NotDetected) U Marijuana (THC) Screen (NotDetected) Serum Alcohol <10 mg/dL 05/16/17 05/16/17 05/16/17 Range/Units 16:33 16:33 16:45 WBC (3.8-10.6) k/uL RBC (3.80-5.40) m/uL Hgb (11.4-16.0) gm/dL Hct (34.0-46.0) % MCV (80.0-100.0) fL MCH (25.0-35.0) pg MCHC (31.0-37.0) g/dL RDW (11.5-15.5) % Plt Count (150-450) k/uL Neutrophils % % Lymphocytes % % Monocytes % % Eosinophils % % Basophils % % Neutrophils # (1.3-7.7) k/uL Lymphocytes # (1.0-4.8) k/uL Monocytes # (0-1.0) k/uL Eosinophils # (0-0.7) k/uL Basophils # (0-0.2) k/uL VBG pH (7.31-7.41) VBG pCO2 (37-51) mmHg VBG HCO3 (24-28) mmol/L Sodium (137-145) mmol/L Potassium (3.5-5.1) mmol/L Chloride (98-107) mmol/L Carbon Dioxide (22-30) mmol/L Anion Gap mmol/L BUN (7-17) mg/dL Creatinine (0.52-1.04) mg/dL Est GFR (MDRD) Af Amer (>60 ml/min/1.73 sqM) Est GFR (MDRD) Non-Af (>60 ml/min/1.73 sqM) Glucose (74-99) mg/dL Plasma Lactic Acid Duncan 1.3 (0.7-2.0) mmol/L Calcium (8.4-10.2) mg/dL Total Bilirubin (0.2-1.3) mg/dL AST (14-36) U/L ALT (9-52) U/L Alkaline Phosphatase (38-126) U/L Troponin I (0.000-0.034) ng/mL Total Protein (6.3-8.2) g/dL Albumin (3.5-5.0) g/dL Urine Color Yellow Urine Appearance Cloudy H (Clear) Urine pH 7.0 (5.0-8.0) Ur Specific [place] 1.014 (1.001-1.035) Urine Protein Negative (Negative) Urine Glucose (UA) Negative (Negative) Urine Ketones Negative (Negative) Urine Blood Large H (Negative) Urine Nitrite Negative (Negative) Urine Bilirubin Negative (Negative) Urine Urobilinogen <2.0 (<2.0) mg/dL Ur Leukocyte Esterase Large H (Negative) Urine RBC 58 H (0-5) /hpf Urine WBC 16 H (0-5) /hpf Ur Squamous Epith Cells 8 H (0-4) /hpf Urine Bacteria Occasional H (None) /hpf Urine Opiates Screen Not Detected (NotDetected) Ur Oxycodone Screen Not Detected (NotDetected) Urine Methadone Screen Not Detected (NotDetected) Ur Propoxyphene Screen Not Detected (NotDetected) Ur Barbiturates Screen Not Detected (NotDetected) U Tricyclic Antidepress Detected H (NotDetected) Ur Phencyclidine Scrn Not Detected (NotDetected) Ur Amphetamines Screen Not Detected (NotDetected) U Methamphetamines Scrn Not Detected (NotDetected) U Benzodiazepines Scrn Not Detected (NotDetected) Urine Cocaine Screen Not Detected (NotDetected) U Marijuana (THC) Screen Not Detected (NotDetected) Serum Alcohol mg/dL 05/16/17 Range/Units 18:20 WBC (3.8-10.6) k/uL RBC (3.80-5.40) m/uL Hgb (11.4-16.0) gm/dL Hct (34.0-46.0) % MCV (80.0-100.0) fL MCH (25.0-35.0) pg MCHC (31.0-37.0) g/dL RDW (11.5-15.5) % Plt Count (150-450) k/uL Neutrophils % % Lymphocytes % % Monocytes % % Eosinophils % % Basophils % % Neutrophils # (1.3-7.7) k/uL Lymphocytes # (1.0-4.8) k/uL Monocytes # (0-1.0) k/uL Eosinophils # (0-0.7) k/uL Basophils # (0-0.2) k/uL VBG pH 7.48 H (7.31-7.41) VBG pCO2 37 (37-51) mmHg VBG HCO3 27 (24-28) mmol/L Sodium (137-145) mmol/L Potassium (3.5-5.1) mmol/L Chloride (98-107) mmol/L Carbon Dioxide (22-30) mmol/L Anion Gap mmol/L BUN (7-17) mg/dL Creatinine (0.52-1.04) mg/dL Est GFR (MDRD) Af Amer (>60 ml/min/1.73 sqM) Est GFR (MDRD) Non-Af (>60 ml/min/1.73 sqM) Glucose (74-99) mg/dL Plasma Lactic Acid Duncan (0.7-2.0) mmol/L Calcium (8.4-10.2) mg/dL Total Bilirubin (0.2-1.3) mg/dL AST (14-36) U/L ALT (9-52) U/L Alkaline Phosphatase (38-126) U/L Troponin I (0.000-0.034) ng/mL Total Protein (6.3-8.2) g/dL Albumin (3.5-5.0) g/dL Urine Color Urine Appearance (Clear) Urine pH (5.0-8.0) Ur Specific [place] (1.001-1.035) Urine Protein (Negative) Urine Glucose (UA) (Negative) Urine Ketones (Negative) Urine Blood (Negative) Urine Nitrite (Negative) Urine Bilirubin (Negative) Urine Urobilinogen (<2.0) mg/dL Ur Leukocyte Esterase (Negative) Urine RBC (0-5) /hpf Urine WBC (0-5) /hpf Ur Squamous Epith Cells (0-4) /hpf Urine Bacteria (None) /hpf Urine Opiates Screen (NotDetected) Ur Oxycodone Screen (NotDetected) Urine Methadone Screen (NotDetected) Ur Propoxyphene Screen (NotDetected) Ur Barbiturates Screen (NotDetected) U Tricyclic Antidepress (NotDetected) Ur Phencyclidine Scrn (NotDetected) Ur Amphetamines Screen (NotDetected) U Methamphetamines Scrn (NotDetected) U Benzodiazepines Scrn (NotDetected) Urine Cocaine Screen (NotDetected) U Marijuana (THC) Screen (NotDetected) Serum Alcohol mg/dL Disposition Clinical Impression: Altered mental state, UTI (urinary tract infection), Leukocytosis Disposition: ADMITTED IP TO THIS [facility] Condition: Good Referrals: Solange Cowan MD [Primary Care Provider] - 1-2 days Decision to Admit Reason: Admit from EC
[2017-05-16] MEDS ORDERED: IPRATROPIUM-ALBUTEROL 3 ML NEB INHALATION STA ×2 (16:37→18:49)
--- NOTE | 2017-05-16 16:57 | XR ---
EXAMINATION TYPE: XR chest 1V portable DATE OF EXAM: 05/16/2017 COMPARISON: 05/11/2017 HISTORY: Asthma chest pain TECHNIQUE: Single frontal view of the chest is obtained. FINDINGS: There is no heart failure nor confluent pneumonic infiltrate. Heart size is normal. I see no pleural effusion. IMPRESSION: No active cardiopulmonary disease. There is clearing of interstitial pulmonary edema com pared to old exam.
[2017-05-16 16:59] LABS: Basophils % (A) 0 %; CH 31.9; CHCM 34.1; Eosinophils # (A) 0.2 k/uL (0-0.7); Eosinophils % (A) 1 %; HCT 42.2 % (34.0-46.0); HDW 2.63; HGB 14.3 gm/dL (11.4-16.0); Luc # (Auto) 0.15; Luc % (Auto) 1; Lymphocytes # (A) 2.8 k/uL (1.0-4.8); Lymphocytes % (A) 21 %; MCH 31.9 pg (25.0-35.0); MCV 93.9 fL (80.0-100.0); Mean Platelet Volume 8.2; Monocytes # (A) 0.5 k/uL (0-1.0); Monocytes % (A) 3 %; Neutrophils % (A) 74 %; RDW 14.4 % (11.5-15.5); WBC 13.6 k/uL (3.8-10.6); WBC (Perox) 13.39
[2017-05-16 17:08] LABS: ALT 65 U/L (9-52); AST 23 U/L (14-36); Alcohol <10 mg/dL; Alkaline Phosphatase 52 U/L (38-126); Anion Gap 7 mmol/L; Blood Urea Nitrogen 23 mg/dL (7-17); Calcium 8.9 mg/dL (8.4-10.2); Carbon Dioxide 26 mmol/L (22-30); Chloride 107 mmol/L (98-107); Glucose 95 mg/dL (74-99); Non-African American GFR(MDRD) >60 (>60 ml/min/1.73 sqM); Potassium 3.6 mmol/L (3.5-5.1); Sodium 140 mmol/L (137-145); Total Bilirubin 0.3 mg/dL (0.2-1.3); Total Protein 5.6 g/dL (6.3-8.2)
[2017-05-16 17:09] VITALS: RESP 16
[2017-05-16 17:15] LABS: Appearance,Urine Cloudy (Clear); Bacteria,Urine Occasional /hpf; Bilirubin,Urine Negative (Negative); Glucose,Urine (UA) Negative (Negative); Ketones,Urine Negative (Negative); Leukocyte Esterase,Urine Large (Negative); Nitrite,Urine Negative (Negative); Particle Count 3857; Protein,Urine Negative (Negative); RBC,Urine 58 /hpf (0-5); Specific Gravity,Urine 1.014 (1.001-1.035); Squamous Epithelial Cell,Urine 8 /hpf (0-4); UA Billing (MACRO vs. MICRO) MICRO; Urobilinogen,Urine <2.0 mg/dL (<2.0); WBC,Urine 16 /hpf (0-5)
--- NOTE | 2017-05-16 17:48 | CT ---
EXAMINATION TYPE: CT brain wo con DATE OF EXAM: 05/16/2017 COMPARISON: 03/29/2016 HISTORY: Patient complains of excessive fatigue and lightheadedness. Patient denies pain. CT DLP: 888.6 mGycm. Automated Exposure Control for Dose Reduction was Utilized. TECHNIQUE: CT scan of the head is performed without contrast. FINDINGS: The ventricles have normal size. There is no mass effect nor midline shift. There is no s ign of intracranial hemorrhage. The calvarium is intact. IMPRESSION: Negative unenhanced head CT scan. No change compared to old exam.
[2017-05-16 18:33] LABS: VBG PH 7.48 (7.31-7.41)
[2017-05-16] MEDS ORDERED: NALOXONE 0.4 MG/ML 1 ML VIAL IV PRN (18:58)
[2017-05-16 19:59] VITALS: BMI 45.1
[2017-05-16] MEDS ORDERED: lamoTRIgine 100 MG TAB PO SCH (21:00)
[2017-05-16] MEDS ORDERED: METOPROLOL TARTRATE 25 MG TAB PO SCH (21:00)
[2017-05-16] MEDS ORDERED: QUEtiapine 100 MG TAB PO SCH (21:00)
[2017-05-16] MEDS: HYDROcodone/APAP 7.5-325MG 1 EACH TAB PO PRN (22:31)
[2017-05-16] MEDS: PREGABALIN 100 MG CAP PO SCH (22:35)
[2017-05-17] MEDS: IPRATROPIUM-ALBUTEROL 3 ML NEB INHALATION SCH ×2 (07:03→10:52)
[2017-05-17 07:47] VITALS: BP 116/57; TEMP 98.4
[2017-05-17] MEDS: PREGABALIN 100 MG CAP PO SCH (08:09)
[2017-05-17] MEDS: HYDROcodone/APAP 7.5-325MG 1 EACH TAB PO PRN (08:09)
--- NOTE | 2017-05-17 10:51 | P.HPIM ---
History of Present Illness Patient is a 36-year-old female presents for evaluation for "a funny feeling in my head". Past medical history as below. Patient recently admitted and discharged on the for atypical pneumonia and acute hypoxic respiratory failure. Patient states that she has not felt well over the last several days. She is very nonspecific. States that she does not have any headaches or head pain. No neck pain. Denies any fevers at home. States that she has a cough but is somewhat improved since discharge. No shortness of breath. No nausea vomiting or diarrhea. No issues with going to the bathroom. She states that her appetite is decreased. She has no history of diabetes. Denies any alcohol or drug use. Denies fevers, URI symptoms, shortness of breath, chest pain, nausea, vomiting, diarrhea, pain or burning with urination. Patient's multiple medications recent and less is causing her symptoms of generalized tiredness allotted a TSH patient is not depressed. Once again the TSH patient will be discharged home, discontinue Remeron and Levaquin she has a follow-up with Dr. Cowan tomorrow. If patient is to have these symptoms after a few days her rest of the medications need to be readdressed. Her urine does look abnormal and patient is on Rocephin here, agent will be discharge her on Ceftin considering her generalized weakness can be from urinary tract infection in spite of patient not having any other symptoms. Review of Systems REVIEW OF SYSTEMS: CONSTITUTIONAL: As mentioned in HPI HEENT: No recent visual problems or hearing problems. Denied any sore throat. CARDIOVASCULAR: No chest pain, orthopnea, PND, no palpitations, no syncope. PULMONARY: No shortness of breath, no cough, no hemoptysis. GASTROINTESTINAL: No diarrhea, no nausea, no vomiting, no abdominal pain. Normoactive bowel sounds. NEUROLOGICAL: No headaches, no weakness, no numbness. HEMATOLOGICAL: Denies any bleeding or petechiae. GENITOURINARY: Denies any burning micturition, frequency, or urgency. MUSCULOSKELETAL/RHEUMATOLOGICAL: Denies any joint pain, swelling, or any muscle pain. ENDOCRINE: Denies any polyuria or polydipsia. The rest of the 14-point review of systems is negative. Past Medical History Past Medical History: Asthma, GERD/Reflux, Myocardial Infarction (PR), Renal Disease Additional Past Medical History / Comment(s): kidney stones, DJD- back pain., sciatic nerve pain, depression,ADHD, migraines, asthma and chronic bronchitis, DIVERTICULAR DISEASE, UTI, genital herpes Last Myocardial Infarction Date:: 10/2013 History of Any Multi-Drug Resistant Organisms: None Reported Past Surgical History: Cholecystectomy, Tubal Ligation, Uterine Ablation Additional Past Surgical History / Comment(s): d & c nova sure, colposcopy Past Anesthesia/Blood Transfusion Reactions: No Reported Reaction Additional Past Anesthesia/Blood Transfusion Reaction / Comment(s): never recieved blood. CLAUSTERPHOBIA Past Psychological History: ADD/ADHD, Anxiety, Bipolar, Depression Additional Psychological History / Comment(s): BORDERLINE PERSONALITY DISORDER, MAJOR DEPRESSION DISORDER. . 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 Smoking Status: Current every day smoker - Past Family History Father Family Medical History: Myocardial Infarction (PR) Additional Family Medical History / Comment(s): FATHER HAD PR AT AGE 42 YRS. FATHER OF PANCREATIC CANCER. HE WAS AN ALCOHOLIC Mother Family Medical History: Coronary Artery Disease (CAD), Diabetes Mellitus, Myocardial Infarction (PR) Medications and Allergies Home Medications Medication Instructions Recorded Confirmed Type Acyclovir [Zovirax] 800 mg PO HS 09/02/14 05/16/17 History lamoTRIgine [LaMICtal] 300 mg PO HS 09/02/14 05/16/17 History Metoprolol Tartrate [Lopressor] 25 mg PO HS 02/26/16 05/16/17 History Verapamil HCl [Verapamil ER] 180 mg PO HS 02/26/16 05/16/17 History Pregabalin [Lyrica] 200 mg PO BID 03/11/17 05/16/17 History Omeprazole [PriLOSEC] 20 mg PO HS 03/25/17 05/16/17 History Citalopram Hydrobromide [CeleXA] 40 mg PO DAILY 05/02/17 05/16/17 History HYDROcodone/APAP 7.5-325MG [[place] 1 tab PO TID PRN 05/02/17 05/16/17 History 7.5-325] QUEtiapine FUMARATE [SEROquel] 100 mg PO HS 05/02/17 05/16/17 History Albuterol Sulfate [Proair Hfa] 2 puff INHALATION RT-QID 05/16/17 05/16/17 History predniSONE See Taper PO DAILY 05/16/17 05/16/17 History Allergies Allergy/AdvReac Type Severity Reaction Status Date / Time azithromycin Allergy Unknown Rash/Hives Verified 05/16/17 17:08 [From Zithromax Z-Jeremie] magnesium sulfate Allergy Rash/Hives Verified 05/16/17 17:08 codeine phosphate AdvReac TREMORS Verified 05/16/17 17:08 [From Tylenol-Codeine #3] prednisone AdvReac Swelling Verified 05/16/17 17:08 Physical Exam Vitals: Vital Signs Temp Pulse Pulse Resp BP BP Pulse Ox 05/17/17 08:00 66 16 05/17/17 07:05 88 05/17/17 07:00 98.4 F 66 16 116/57 93 L 05/16/17 23:06 16 05/16/17 19:50 98.2 F 78 16 140/55 96 05/16/17 19:38 98.7 F 88 16 145/60 99 05/16/17 19:17 92 05/16/17 19:08 91 05/16/17 18:40 98.4 F 63 16 143/61 96 05/16/17 17:05 76 05/16/17 16:58 78 05/16/17 16:05 97.8 F 75 16 126/58 94 L Intake and Output 05/16/17 05/17/17 05/17/17 22:59 06:59 14:59 Intake Total 50 Balance 50 Intake: Intake, IV Titration 50 Amount cefTRIAXone 1,000 mg In 50 Sodium Chloride 0.9% 50 ml @ 100 mls/hr IVPB Q24HR [facility] Rx#:[id number] Other: Voiding Method Toilet Toilet # Voids 3 Weight 142.882 kg PHYSICAL EXAMINATION: GENERAL: The patient is alert and oriented x3, not in any acute distress. Well developed, well nourished, patient has significant generalized weakness HEENT: Pupils are round and equally reacting to light. EOMI. No scleral icterus. No conjunctival pallor. Normocephalic, atraumatic. No pharyngeal erythema. No thyromegaly. CARDIOVASCULAR: S1 and S2 present. No murmurs, rubs, or gallops. PULMONARY: Chest is clear to auscultation, no wheezing or crackles. ABDOMEN: Soft, nontender, nondistended, normoactive bowel sounds. No palpable organomegaly. MUSCULOSKELETAL: No joint swelling or deformity. EXTREMITIES: No cyanosis, clubbing, or pedal edema. NEUROLOGICAL: Gross neurological examination did not reveal any focal deficits. SKIN: No rashes. Results CBC & Chem 7: 05/16/17 16:33 05/16/17 16:33 Labs: Abnormal Lab Results - Last 24 Hours (Table) 05/16/17 05/16/17 05/16/17 Range/Units 16:33 16:33 16:33 WBC 13.6 H (3.8-10.6) k/uL Neutrophils # 10.0 H (1.3-7.7) k/uL VBG pH (7.31-7.41) BUN 23 H (7-17) mg/dL ALT 65 H (9-52) U/L Total Protein 5.6 L (6.3-8.2) g/dL Albumin 3.4 L (3.5-5.0) g/dL Urine Appearance Cloudy H (Clear) Urine Blood Large H (Negative) Ur Leukocyte Esterase Large H (Negative) Urine RBC 58 H (0-5) /hpf Urine WBC 16 H (0-5) /hpf Ur Squamous Epith Cells 8 H (0-4) /hpf Urine Bacteria Occasional H (None) /hpf U Tricyclic Antidepress (NotDetected) 05/16/17 05/16/17 Range/Units 16:45 18:20 WBC (3.8-10.6) k/uL Neutrophils # (1.3-7.7) k/uL VBG pH 7.48 H (7.31-7.41) BUN (7-17) mg/dL ALT (9-52) U/L Total Protein (6.3-8.2) g/dL Albumin (3.5-5.0) g/dL Urine Appearance (Clear) Urine Blood (Negative) Ur Leukocyte Esterase (Negative) Urine RBC (0-5) /hpf Urine WBC (0-5) /hpf Ur Squamous Epith Cells (0-4) /hpf Urine Bacteria (None) /hpf U Tricyclic Antidepress Detected H (NotDetected) Microbiology - Last 24 Hours (Table) 05/16/17 16:33 Urine Culture - Preliminary Urine,Clean Catch Thrombosis Risk Factor Assmnt - Choose All That Apply Each Factor Represents 1 point: Obesity (BMI >25) Thrombosis Risk Factor Assessment Total Risk Factor Score: 1 Thrombosis Risk Factor Assessment Level: Low Risk Assessment and Plan Plan: #1 generalized weakness: Probably secondary to medication and recent illness. TSH will be obtained, after that patient was discharged with the above- mentioned plan. 2 recent pneumonia most probably atypical pneumonia for which patient was on levofloxacin 3 possible today. 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
--- NOTE | 2017-05-17 10:52 | P.DS ---
Providers Date of admission: 05/16/17 18:58 Attending physician: Guille Vasques Primary care physician: Sol[facility] Course: Please refer to HPI Patient Condition at Discharge: Good Plan - Discharge Summary New Discharge Prescriptions: New Cefuroxime Axetil [Ceftin] 500 mg PO BID #10 tab Discontinued Mirtazapine [Remeron] 45 mg PO HS Levofloxacin [Levaquin] 750 mg PO DAILY@1500 No Action lamoTRIgine [LaMICtal] 300 mg PO HS Acyclovir [Zovirax] 800 mg PO HS Verapamil HCl [Verapamil ER] 180 mg PO HS Metoprolol Tartrate [Lopressor] 25 mg PO HS Pregabalin [Lyrica] 200 mg PO BID Omeprazole [PriLOSEC] 20 mg PO HS Promethazine 6.25MG/5Ml [Phenergan Syrup] 5 ml PO Q4HR PRN #120 ml PRN Reason: Cough HYDROcodone/APAP 7.5-325MG [Haskell 7.5-325] 1 tab PO TID PRN PRN Reason: Pain QUEtiapine FUMARATE [SEROquel] 100 mg PO HS Citalopram Hydrobromide [CeleXA] 40 mg PO DAILY Nystatin 100,000 Unit/ml Susp [Mycostatin Oral Susp] 500,000 unit PO QID # 140 ml Ipratropium-Albuterol Nebulize [Duoneb 0.5 mg-3 mg/3 ml Soln] 3 ml INHALATION RT-QID #120 neb predniSONE See Taper PO DAILY Albuterol Sulfate [Proair Hfa] 2 puff INHALATION RT-QID Discharge Medication List Acyclovir [Zovirax] 800 mg PO HS 09/02/14 [History] lamoTRIgine [LaMICtal] 300 mg PO HS 09/02/14 [History] Metoprolol Tartrate [Lopressor] 25 mg PO HS 02/26/16 [History] Verapamil HCl [Verapamil ER] 180 mg PO HS 02/26/16 [History] Pregabalin [Lyrica] 200 mg PO BID 03/11/17 [History] Omeprazole [PriLOSEC] 20 mg PO HS 03/25/17 [History] Citalopram Hydrobromide [CeleXA] 40 mg PO DAILY 05/02/17 [History] HYDROcodone/APAP 7.5-325MG [Haskell 7.5-325] 1 tab PO TID PRN 05/02/17 [History] Promethazine 6.25MG/5Ml [Phenergan Syrup] 5 ml PO Q4HR PRN #120 ml 05/02/17 [Rx] QUEtiapine FUMARATE [SEROquel] 100 mg PO HS 05/02/17 [History] Nystatin 100,000 Unit/ml Susp [Mycostatin Oral Susp] 500,000 unit PO QID #140 ml 05/12/17 [Rx] Ipratropium-Albuterol Nebulize [Duoneb 0.5 mg-3 mg/3 ml Soln] 3 ml INHALATION RT -QID #120 neb 05/13/17 [Rx] Albuterol Sulfate [Proair Hfa] 2 puff INHALATION RT-QID 05/16/17 [History] predniSONE See Taper PO DAILY 05/16/17 [History] Cefuroxime Axetil [Ceftin] 500 mg PO BID #10 tab 05/17/17 [Rx] Follow up Appointment(s)/Referral(s): Solange Cowan MD [Primary Care Provider] - 3 Days Discharge Disposition: HOME SELF-CARE
[2017-05-17 10:54] VITALS: PULSE 92
== END 2017-05-17 13:45 | disposition home or self-care (01) ==
LOC: EC 15:51 → 5MS5E 18:58
PROVIDERS: ADMIT Hospitalist; ATTEND Hospitalist
DX: R41.82 Altered mental status, unspecified (principal); J45.909 Unspecified asthma, uncomplicated; I25.2 Old myocardial infarction; K21.9 Gastro-esophageal reflux disease without esophagitis; F41.9 Anxiety disorder, unspecified; F90.9 Attention-deficit hyperactivity disorder, unspecified type; G43.909 Migraine, unspecified, not intractable, without status migrainosus; F17.200 Nicotine dependence, unspecified, uncomplicated; N39.0 Urinary tract infection, site not specified; F31.9 Bipolar disorder, unspecified; M19.90 Unspecified osteoarthritis, unspecified site; R53.1 Weakness; M54.5 Low back pain; E66.9 Obesity, unspecified; G62.9 Polyneuropathy, unspecified; G89.29 Other chronic pain; F60.3 Borderline personality disorder; Z82.49 Family history of ischemic heart disease and other diseases of the circulatory system; Z87.442 Personal history of urinary calculi; Z87.42 Personal history of other diseases of the female genital tract; Z87.01 Personal history of pneumonia (recurrent); Z79.899 Other long term (current) drug therapy; Z79.52 Long term (current) use of systemic steroids; Z88.1 Allergy status to other antibiotic agents; Z88.5 Allergy status to narcotic agent; Z88.8 Allergy status to other drugs, medicaments and biological substances; Z87.440 Personal history of urinary (tract) infections; Z68.42 Body mass index [BMI] 45.0-49.9, adult
CPT/HCPCS: 99285 ×2; 96365; 96366; 36415; 94640 ×4; 93005; 85379; 80053; 84443; 82803; 83605; 84484; 85025; 81001; 87040; 80306; 80320; 87086; 71010; 70450; G0378 ×2; J0696 ×2